=== PATIENT | female | born 1970 | race Caucasian/White ===

== ENCOUNTER 2020-01-23 07:03 | Outpatient (CLI) | payer OTHER, SELFPAY ==
--- NOTE | ~2020-01-23 | MM_ITS ---
EXAMINATION: MM screening andrew BI w krysta HISTORY: Screening mammogram TECHNIQUE: Craniocaudal and mediolateral oblique 3-D tomosynthesis images were obtained and synthetic 2-D images were generated. CAD analysis was submitted and interpreted. COMPARISON: Comparison to multiple prior studies sequentially, with oldest reviewed study dated 06/25. BREAST PARENCHYMAL COMPOSITION: The breasts are heterogeneously dense, which may obscure small masses . FINDINGS: There is no evidence of suspicious mass, calcification, or architectural distortion to sugg est malignancy in either breast. There has been no suspicious interval change. IMPRESSION: 1. No mammographic evidence of malignancy. 2. Recommend routine screening mammography in one year. BI-RADS Category 1: Negative Reviewed, dictated and finalized at location A. [facility]
[2020-01-23 07:45] LABS: Basophils Absolute Auto 0.1 K/mm3 (0.0-0.1); Basophils Percent Auto 0.6 % (0.2-1.2); Eosinophils Absolute Auto 0.4 K/mm3 (0-0.3); Eosinophils Percent Auto 4.8 % (0-4.4); Hemoglobin 13.6 g/dL (12.0-15.0); Immature Granulocyte Absolute 0.03 K/mm3 (0.00-0.031); Immature Granulocyte Percent A 0.4 % (0-0.5); Lymphocytes Absolute Auto 2.24 K/mm3 (0.9-3.2); Lymphocytes Percent Auto 26.2 % (18.3-44.2); Mean Corpuscular HGB Conc 30.9 g/dl (32-36); Mean Corpuscular Hemoglobin 27.1 pg (26-34); Mean Corpuscular Volume 87.8 fl (80-100); Mean Platelet Volume 9.8 fl (7.4-10.4); Monocytes Absolute Auto 0.6 K/mm3 (0.1-0.6); Monocytes Percent Auto 7.1 % (2.6-8.5); Neutrophils Absolute Auto 5.2 K/mm3 (1.3-6.7); Neutrophils Percent Auto 60.9 % (45.5-73.1); Platelet Count Result 297 k/mm3 (150-375); Red Blood Count 5.01 M/mm3 (4.2-5.4); Red Cell Distribution Width 15.6 % (11.5-14.5); White Blood Count 8.6 K/mm3 (4.5-10.0)
[2020-01-23 07:57] LABS: Alanine Aminotransferase 29 U/L (4-35); Albumin Level 4.3 g/dL (3.5-5.1); Alkaline Phosphatase 72 U/L (38-126); Aspartate Amino Transferase 27 U/L (14-36); Bilirubin,Total 0.4 mg/dL (0.2-1.3); Blood Urea Nitrogen 14 mg/dL (7-17); Calcium 9.1 mg/dL (8.4-10.2); Carbon Dioxide 25 mmol/L (22-30); Chloride 102 mmol/L (98-107); Cholesterol 223 mg/dL (0-200); Estimated Glomerular Filt Rate > 60; Glucose 98 mg/dL (65-105); HDL Direct 34 mg/dL; Potassium 4.1 mmol/L (3.4-5.0); Sodium 140 mmol/L (137-145); Triglycerides 168 mg/dL (<150)
[2020-01-23 08:08] LABS: LDL Cholesterol Direct 154 mg/dL
[2020-01-23 09:46] LABS: Vitamin D 25 Hydroxy 34.8 ng/mL
[2020-01-23 11:05] LABS: Free T4 Free Thyroxine Reflex 0.95 ng/dL (0.78-2.19)
[2020-01-23 12:52] LABS: Total Triiodothyronine (T3) 1.44 NG/ML (0.97-1.69)
== END 2020-01-23 07:04 | disposition home or self-care (01) ==
PROVIDERS: PCP Family Medicine; Visit Provider Nurse Practitioner
DX: Z00.00 Encounter for general adult medical examination without abnormal findings (principal); Z12.31 Encounter for screening mammogram for malignant neoplasm of breast; E55.9 Vitamin D deficiency, unspecified
CPT/HCPCS: 36415; 77063; 77067; 80053; 80061; 82306; 84439; 84443; 84480; 85025

== ENCOUNTER 2020-08-09 06:39 | Outpatient (CLI) | payer OTHER, SELFPAY ==
--- NOTE | ~2020-08-09 | XR_ITS ---
XR ankle RT min 3V DATE: 08/09/2020 07:14 INDICATION: Right ankle injury, sprain TECHNIQUE: 4 views COMPARISON: 03/03/2016 right ankle FINDINGS: No fracture or dislocation of the ankle or disruption of the ankle mortise. No periosteal r eaction or bone destruction. IMPRESSION: Negative Reviewed, dictated and finalized at location A. IMPRESSION: Negative
== END 2020-08-09 06:40 | disposition home or self-care (01) ==
LOC: ANHIMG 06:44
PROVIDERS: PCP Family Medicine; Visit Provider Family Medicine
DX: S93.401A Sprain of unspecified ligament of right ankle, initial encounter (principal); M25.571 Pain in right ankle and joints of right foot
CPT/HCPCS: 73610

== ENCOUNTER 2020-08-19 14:33 | Outpatient (CLI) | payer OTHER, SELFPAY ==
[2020-08-19 15:13] LABS: Immunoglobulin G 1584 mg/dL (700-1600)
== END 2020-08-19 14:34 | disposition home or self-care (01) ==
PROVIDERS: PCP Family Medicine; Visit Provider Nurse Practitioner Family
DX: R68.89 Other general symptoms and signs (principal); Z20.828 Contact with and (suspected) exposure to other viral communicable diseases
CPT/HCPCS: 36415; 82784

== ENCOUNTER 2020-08-31 07:42 | Outpatient (CLI) | payer OTHER, SELFPAY ==
[2020-08-31 10:01] LABS: Rubella IgG Antibody 66.3 IU/ML
[2020-09-04 09:38] LABS: Rubeola Measles IgG >300.00 AU/mL (>16.49)
== END 2020-08-31 07:43 | disposition home or self-care (01) ==
LOC: ANHLAB 07:44
PROVIDERS: PCP Family Medicine; Visit Provider Nurse Practitioner Family
DX: Z11.59 Encounter for screening for other viral diseases (principal)
CPT/HCPCS: 36415; 86735; 86762; 86765

== ENCOUNTER 2021-05-09 09:00 | Outpatient (RCR) | payer OTHER, SELFPAY ==
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
== END 2021-05-13 10:30 | disposition home or self-care (01) ==
LOC: ANHPT 09:00
PROVIDERS: PCP Family Medicine; Visit Provider Nurse Practitioner Family
DX: M25.561 Pain in right knee (principal); M62.81 Muscle weakness (generalized)
CPT/HCPCS: 97014; 97110; 97116; 97140; 97162; G0283

== ENCOUNTER 2021-05-23 11:34 | Emergency (ER) | payer OTHER, SELFPAY ==
[2021-05-23 11:48] VITALS: BP 126/86; PULSE 89; RESP 19; TEMP 36.1; O2SAT 97
--- NOTE | 2021-05-23 12:21 | PC.NURSE ---
Pt to restroom using cane w/ assist.
[2021-05-23 12:28] VITALS: BP 122/79; PULSE 82; RESP 18; O2SAT 97
--- NOTE | 2021-05-23 12:34 | ED.HA ---
HPI - Headache General Chief Complaint: Headache Stated Complaint: headache Time Seen by Provider: 05/23/21 12:23 Source: RN notes reviewed History of Present Illness HPI Narrative: Patient presents emergency department from home for a migraine headache. Patient states she has a history of migraine headaches since having a traumatic brain injury states that migraines come and go and this episodes been present for the past 2 days episode feels consistent with previous migraines the patient tried taking aspirin at home as well as has Balderas's milligrams of Tylenol approximately 2 hours ago patient reports nausea with the symptoms she denies any fevers or chills chest pain shortness of breath abdominal pain or any other symptoms patient states she is allergic to NSAIDs Related Data Home Medications Medication Instructions Recorded Confirmed cyclobenzaprine 10 mg tablet 10 mg PO BID PRN tablet 03/18/21 04/10/21 Allergies Allergy/AdvReac Type Severity Reaction Status Date / Time NSAIDS (Non-Steroidal Allergy Severe Siezure Verified 05/23/21 11:53 Anti-Inflamma Cat Dander Allergy Severe chest Uncoded 05/23/21 11:53 congestion Molds and Smuts Allergy Severe chest Uncoded 05/23/21 11:53 congestion Review of Systems Review of Systems: Narrative: Gen.: Denies fevers or chills Eyes: Denies eye pain or visual change reports light sensitivity ENT: Denies congestion Respiratory: Denies shortness of breath or cough CV: Denies chest pain or palpitations GI: Denies abdominal pain emesis or diarrhea reports nausea Musculoskeletal: Denies back pain or muscle pain Neuro: See HPI Skin: Denies rash Except as documented, all other systems reviewed and negative [facility] Past Medical History Medical History Arthritis Back pain, chronic Cerebral palsy Cerumen impaction Depression screening negative Eczema of right hand GERD (gastroesophageal reflux disease) Hyperlipidemia Impaired fasting glucose Patellar tendonitis Post-nasal drainage Renal calculus Right ankle sprain Right knee pain Wears glasses Surgical History Surgical History [place] teeth extracted (~1995) Family History Family History Grandparent Cerebrovascular accident Family history of heart disease in male family member before age 55 Mother Cerebrovascular accident Social History Social History Smoking status: Never smoker Second hand tobacco smoke exposure: No Alcohol intake: current Substance use: never Substance use type: does not use Additional occupation/education comments: Disabled Gender identity (if verbalized by the patient): Female Exam Narrative: Exam Narrative: APPEARANCE: No acute distress, nontoxic, resting in bed EYES: PERRL HEENT: Normocephalic, atraumatic, OMM RESPIRATORY: No respiratory distress Clear to auscultation bilaterally with no rhonchi wheezing or rales. CARDIOVASCULAR: Regular rate and rhythm without murmurs rubs or gallops. ABDOMINAL: Soft, nontender, nondistended, no rebound or guarding MUSCULOSKELETAl: Moves all extremities. No clubbing, cyanosis or edema. NEURO: Awake and alert. Following commands, speech normal, no focal deficits SKIN:: Warm, dry. No rashes lesions or abrasions PSYCHIATRIC: Normal affect/mood, Course Course Emergency Course: Patient states headache is resolved ready for discharge Discussed with patient results of workup and diagnosis. Discussed need for follow-up with primary care, proper use of medication, and reasons to return to the emergency department. Patient understands and agrees to current treatment plan Vital Signs Vital signs: Vital Signs Temperature 97.0 F L 05/23/21 11:48 Pulse Rate 89 05/23/21 11:48 Respiratory Rate 19 05/23/21 11:48 Blood Pressu
[2021-05-23] MEDS: diphenhydrAMINE HCl INJ 50 MG/ML VIAL 25 MG IV PUSH (12:45)
[2021-05-23] MEDS: SODIUM CHLORIDE 0.9% IV 1,000 ML 999 ML IV CONT (12:45)
[2021-05-23] MEDS: ONDANSETRON INJ 4 MG/2 ML VIAL IV PUSH (12:45)
[2021-05-23 12:55] LABS: Add Urine Microscopic? YES; Appearance Urine Cloudy (Clear); Bacteria Urine Trace /hpf; Bilirubin Urine Negative (Negative); Blood Urine 2+ (Negative); Color Urine Straw (Yellow); Glucose Urine UA Negative (Negative); Ketones Urine Negative (Negative); Leukocyte Esterase Ur 2+ LEU/UL (Negative); Mucus Urine Rare /lpf; Nitrate Urine Negative (Negative); Protein Urine Negative (Negative); Specific Grav Ur 1.005 (1.001-1.035); Squamous Epithelial Cell Urine Few /hpf (Few); Urobilinogen Urine Negative mg/dL (<2.0)
[2021-05-23 13:35] VITALS: BP 127/89; PULSE 88; RESP 15; O2SAT 98
== END 2021-05-23 14:02 | disposition home or self-care (01) ==
PROVIDERS: Emergency Provider Emergency Medicine; PCP Family Medicine
DX: G43.009 Migraine without aura, not intractable, without status migrainosus (principal); N39.0 Urinary tract infection, site not specified
CPT/HCPCS: 81001; 81025; 87086; 87088; 96361; 96374; 96375; 99284; J1200; J2405; J7030

== ENCOUNTER 2021-07-02 11:03 | Outpatient (CLI) | payer OTHER, SELFPAY ==
[2021-07-02 11:45] LABS: Basophils Percent Auto 0.4 % (0.2-1.2); Eosinophils Absolute Auto 0.3 K/mm3 (0-0.3); Eosinophils Percent Auto 3.4 % (0-4.4); Hematocrit 39.6 % (37.0-47.0); Hemoglobin 12.6 g/dL (12.0-15.0); Immature Granulocyte Absolute 0.04 K/mm3 (0.00-0.031); Immature Granulocyte Percent A 0.4 % (0-0.5); Lymphocytes Absolute Auto 2.86 K/mm3 (0.9-3.2); Lymphocytes Percent Auto 29.5 % (18.3-44.2); Mean Corpuscular HGB Conc 31.8 g/dl (32-36); Mean Corpuscular Hemoglobin 27.6 pg (26-34); Mean Corpuscular Volume 86.8 fl (80-100); Mean Platelet Volume 10.3 fl (7.4-10.4); Monocytes Absolute Auto 0.7 K/mm3 (0.1-0.6); Monocytes Percent Auto 7.1 % (2.6-8.5); Neutrophils Absolute Auto 5.8 K/mm3 (1.3-6.7); Neutrophils Percent Auto 59.2 % (45.5-73.1); Platelet Count Result 307 k/mm3 (150-375); Red Blood Count 4.56 M/mm3 (4.2-5.4); Red Cell Distribution Width 13.4 % (11.5-14.5); White Blood Count 9.7 K/mm3 (4.5-10.0)
[2021-07-02 12:03] LABS: Alanine Aminotransferase 20 U/L (4-35); Albumin Level 4.1 g/dL (3.5-5.1); Alkaline Phosphatase 72 U/L (38-126); Aspartate Amino Transferase 21 U/L (14-36); Bilirubin,Total 0.4 mg/dL (0.2-1.3); Blood Urea Nitrogen 13 mg/dL (7-17); Calcium 9.4 mg/dL (8.4-10.2); Carbon Dioxide 29 mmol/L (22-30); Cholesterol 234 mg/dL (0-200); Estimated Glomerular Filt Rate > 60; Glucose 93 mg/dL (65-110); HDL Direct 43 mg/dL; Potassium 4.1 mmol/L (3.4-5.0); Sodium 139 mmol/L (137-145); Triglycerides 207 mg/dL (<150)
[2021-07-02 12:08] LABS: LDL Cholesterol Direct 131 mg/dL
[2021-07-02 12:44] LABS: Vitamin D 25 Hydroxy 43.4 ng/mL
[2021-07-02 16:38] LABS: Anion Gap 7 mmol/L (8-16); Chloride 103 mmol/L (98-107)
== END 2021-07-02 11:04 | disposition home or self-care (01) ==
PROVIDERS: PCP Family Medicine; Referring Provider Obstetrics & Gynecology; Visit Provider Family Medicine
DX: E78.5 Hyperlipidemia, unspecified (principal); G43.019 Migraine without aura, intractable, without status migrainosus; G80.9 Cerebral palsy, unspecified; E55.9 Vitamin D deficiency, unspecified
CPT/HCPCS: 36415; 80053; 80061; 82306; 84443; 85025

== ENCOUNTER 2021-10-08 02:18 | Day surgery (SDC) | payer OTHER, SELFPAY ==
--- NOTE | 2021-09-18 14:04 | PC.NURSE ---
Spoke with patient regarding rescheduled procedure. No new info needed in chart. Note that patient is [employer] and has cerebal palsy (high fall risk) Will also need preg test upon arrival. hx of seizures. Patient asked if it was ok to take her cyclobenzaprine med the day of her procedure to help prevent seizures. Told her it was safe to take without food that day. Patient was argumentative about the medication. Forwarded information to EDMUND Figueroa nurse to go over in further detail with patient about medications to take while prepping/morning of her procedure.
[2021-10-07 12:57] VITALS: BMI 26.9
[2021-10-08 08:22] VITALS: BP 125/78; PULSE 94; RESP 18; TEMP 36.1; O2SAT 100
--- NOTE | 2021-10-08 08:26 | WPDANESEPPF ---
Anes - Initial Pre Proc Eval Procedure: Operation Date: 10/08/21 09:15 Proposed Procedures p Esophagogastroduodenoscopy & Screening Colonoscopy - Mckinley Shields MD Date/Time: 10/08/21 08:26 Surgeon: Mckinley Shields MD Pre Op Diagnosis: dysphagia, neoplasm screening Patient Data Age: 50 Gender: F Height: 1.6 m Weight: 67.2 kg Last Vital Signs Temp 36.1 C L 10/08/21 08:22 Pulse 94 10/08/21 08:22 Resp 18 10/08/21 08:22 BP 125/78 10/08/21 08:22 Pulse Ox 100 10/08/21 08:22 Allergies Allergy/AdvReac Type Severity Reaction Status Date / Time NSAIDS (Non-Steroidal Allergy Severe Siezure Verified 10/08/21 08:19 Anti-Inflamma venom-honey bee Allergy Swelling Verified 10/08/21 08:19 venom-wasp Allergy Swelling Verified 10/08/21 08:19 Cat Dander Allergy Severe chest Uncoded 10/08/21 08:19 congestion Molds and Smuts Allergy Severe chest Uncoded 10/08/21 08:19 congestion Home Medications Medication Instructions Recorded Confirmed Type cetirizine 10 mg tablet See Rx Instructions .ROUTE 02/04/21 10/07/21 Rx .COMPLEX #90 tablet cyclobenzaprine 10 mg tablet 10 mg PO BID PRN tablet 03/18/21 10/07/21 History sumatriptan succinate 50 mg tablet See Rx Instructions PO .COMPLEX #7 07/02/21 10/07/21 Rx tablet acetaminophen 500 mg capsule 500 mg PO Q6H PRN 08/19/21 10/07/21 History Patient hx anesthesia problems: none Family hx anesthesia problems: none Results Review: All pre-operative results and documents have been reviewed as part of the pre-operative evaluation. [facility] Past Medical History Medical History Arthritis Bilateral leg cramps Cerebral palsy Cerumen impaction Cervical cancer DVT (deep vein thrombosis) in Environmental allergies GERD (gastroesophageal reflux disease) Hyperlipidemia Migraine headache Patellar tendonitis Renal calculus Seizure Stomach ulcer Wears glasses Surgical History Surgical History H/O LEEP [place] teeth extracted (~1995) Family History Family History Grandparent Cerebrovascular accident Family history of heart disease in male family member before age 55 Mother Cerebrovascular accident Father Alzheimer disease Social History Social History Social History: caffeine use:drinks 1 cup hot tea daily Smoking status: Never smoker Second hand tobacco smoke exposure: No Alcohol intake: current Alcohol use details: occasional Substance use: never Substance use type: does not use Living arrangements: with roommate(s) Additional living arrangements comments: with fiance Additional occupation/education comments: Disabled Gender identity (if verbalized by the patient): Female Spiritual care concerns: No Anes - Eval Final PreProcedure Day of Procedure 10/08/21 08:26 Patient weight: overweight Heart: regular rate and rhythm Lungs: clear to auscultation and normal air movement Airway: Mallampati scale class II Neurological: alert and oriented Last oral intake: >/= 8 hours ASA classification: III Emergent: no Anesthetic plan: proceed Anesthesia type and monitoring: general GIVS Results Review: All pre-operative results and documents have been reviewed as part of the pre-operative evaluation. Informed Consent: The patient's anesthetic plan and its attendant risks and benefits were discussed with the patient/family/POA. Questions were solicited and answers provided to the satisfaction of the patient/family/POA.
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
[2021-10-08] MEDS: LACTATED RINGERS 1,000 ML 150 ML IV CONT (08:41)
--- NOTE | 2021-10-08 09:18 | PM.HPGS ---
History of Present Illness History of Present Illness Consent: Risks, benefits, and alternatives have been discussed and questions answered. Patient agrees to proceed with procedure. Chief complaint: dysphagia, neoplasm screening Narrative: Esther Duarte is a 50 year old female here for first screening colonoscopy, also epigastric discomfort and nausea using tums. Review of Systems Constitutional: Constitutional: Denies headache(s) and Denies weakness Eyes: Eyes: Denies blurry vision ENT: Reports Normal hearing present, Denies headache(s) and Denies neck pain Cardiovascular: Cardiovascular: Denies chest pain and Denies dyspnea Respiratory: Respiratory: Denies dyspnea Gastrointestinal: Gastrointestinal: Reports no additional gastrointestinal complaints Genitourinary: Genitourinary: Denies dysuria Musculoskeletal: Musculoskeletal: Denies neck pain Integumentary/Breasts: Skin/Breast: Denies dry skin Neurologic: Reports Normal hearing present, Denies headache(s) and Denies weakness Psychiatric: Psychiatric: Denies anxiety Endocrine: Endocrine: Denies change in body appearance Hematologic/Lymphatic: Hematologic/Lymphatic: Denies easy bleeding Allergic/Immunologic: Allergic/Immunologic: Denies urticaria PMF Past Medical History Medical History (Updated 10/08/21 @ 09:19 by Mckinley Shields MD) Arthritis Bilateral leg cramps Cerebral palsy Cerumen impaction Cervical cancer DVT (deep vein thrombosis) in Environmental allergies Epigastric pain GERD (gastroesophageal reflux disease) Hyperlipidemia Migraine headache Patellar tendonitis Renal calculus Seizure Stomach ulcer Wears glasses Surgical History Surgical History H/O LEEP [place] teeth extracted (~1995) Family History Family History Grandparent Cerebrovascular accident Family history of heart disease in male family member before age 55 Mother Cerebrovascular accident Father Alzheimer disease Social History Social History Social History: caffeine use:drinks 1 cup hot tea daily Smoking status: Never smoker Second hand tobacco smoke exposure: No Alcohol intake: current Alcohol use details: occasional Substance use: never Substance use type: does not use Living arrangements: with roommate(s) Additional living arrangements comments: with fiance Additional occupation/education comments: Disabled Gender identity (if verbalized by the patient): Female Spiritual care concerns: No Meds Home Medications and Allergies Home Medications Medication Instructions Recorded Confirmed Type cetirizine 10 mg tablet See Rx Instructions .ROUTE 02/04/21 10/07/21 Rx .COMPLEX #90 tablet cyclobenzaprine 10 mg tablet 10 mg PO BID PRN tablet 03/18/21 10/07/21 History sumatriptan succinate 50 mg tablet See Rx Instructions PO .COMPLEX #7 07/02/21 10/07/21 Rx tablet acetaminophen 500 mg capsule 500 mg PO Q6H PRN 08/19/21 10/07/21 History Allergies Allergy/AdvReac Type Severity Reaction Status Date / Time NSAIDS (Non-Steroidal Allergy Severe Siezure Verified 10/08/21 08:19 Anti-Inflamma venom-honey bee Allergy Swelling Verified 10/08/21 08:19 venom-wasp Allergy Swelling Verified 10/08/21 08:19 Cat Dander Allergy Severe chest Uncoded 10/08/21 08:19 congestion Molds and Smuts Allergy Severe chest Uncoded 10/08/21 08:19 congestion Vital Signs Vital Signs - 24 hr 10/08/21 08:22 Temperature 97.0 F L Pulse Rate 94 Respiratory Rate 18 Blood Pressure 125/78 Pulse Oximetry 100 Exam Const: General: comfortable and no acute distress HENMT: General nose exam: Normal nares present Eyes: General: appearance normal, both eyes and all related structures Neck: Neck: no JVD Resp: Auscultati
--- NOTE | 2021-10-08 09:49 | SUR.OPER ---
EGD ended at 930 Colonoscopy started at 936
[2021-10-08 09:52] VITALS: BP 105/56; PULSE 82; RESP 18; O2SAT 100
[2021-10-08 10:02] VITALS: BP 106/65; PULSE 73; RESP 21; O2SAT 100
[2021-10-08 10:12] VITALS: BP 113/70; PULSE 71; RESP 21; O2SAT 100
[2021-10-08 10:22] VITALS: BP 115/75; PULSE 73; RESP 23; O2SAT 100
[2021-10-08 10:32] VITALS: BP 127/76; PULSE 64; RESP 23; O2SAT 100
--- NOTE | 2021-10-08 10:46 | SUR.PHASEII ---
Pt dressed and up to chair still drowsy states she not ready for discharge. Spouse at bedside.
== END 2021-10-08 10:52 | disposition home or self-care (01) ==
PROVIDERS: PCP Family Medicine; Visit Provider Internal Medicine Gastroenterology
PROC: 0DJ08ZZ Inspection of Upper Intestinal Tract, Via Natural or Artificial Opening Endoscopic (ICD-10-PCS; CPT 43235; principal; 2021-10-08 09:15)
DX: Z12.11 Encounter for screening for malignant neoplasm of colon (principal); D12.3 Benign neoplasm of transverse colon; K57.30 Diverticulosis of large intestine without perforation or abscess without bleeding; K64.8 Other hemorrhoids; K21.00 Gastro-esophageal reflux disease with esophagitis, without bleeding; K57.10 Diverticulosis of small intestine without perforation or abscess without bleeding; K29.50 Unspecified chronic gastritis without bleeding; G80.9 Cerebral palsy, unspecified; E78.5 Hyperlipidemia, unspecified
CPT/HCPCS: 45385; 43239; 88305; 88342; J2704; J7120

== ENCOUNTER 2022-04-08 13:22 | Observation (INO) | payer OTHER, SELFPAY ==
[2022-04-08] VITALS (10 sets, daily range): BP systolic 116–130; BP diastolic 66–76; PULSE 70–79; RESP 16–17; TEMP 36.3–36.8; O2SAT 98–100; BMI 27.1
--- NOTE | ~2022-04-08 | XR_ITS ---
EXAMINATION: XR stent kub - surgery DATE: 04/09/2022 16:42 INDICATION: Right ureteral stone. TECHNIQUE: 4 intraoperative fluoroscopic views of the abdomen and pelvis were obtained. I was not pre sent. Fluoroscopy exposure time was 28 seconds. COMPARISON: CT abdomen and pelvis 04/08/2022 FINDINGS: The certified juvenile probation officer images demonstrate a stone in distal right ureter overlying the sacrum. There is a stone in right kidney. The final images demonstrate a right internal ureteral stent in expected pos ition. IMPRESSION: 1. Stone removal from distal right ureter. 2. Right internal ureteral stent in expected position. 3. Stone in right kidney. Reviewed, dictated and finalized at location A.
--- NOTE | ~2022-04-08 | CT_ITS ---
EXAMINATION: CT abdomen pelvis wo con DATE: 04/08/2022 16:13 INDICATION: right flank pain TECHNIQUE: Computed tomography (CT) of the abdomen and pelvis was performed without intravenous contr ast. Automated exposure control and iterative reconstruction technique were employed. The dose-length product was 190.33 mGy-cm. COMPARISON: 06/23/2016. FINDINGS: Lower thorax: Unremarkable Liver: Hiatal hernia. Biliary/Gallbladder: Gallbladder is normal. No bile duct dilation. Spleen: Normal. Pancreas: No mass or duct dilation. Adrenals:No mass. Kidneys: Right renal enlargement, perinephric stranding, and moderate hydronephrosis. Nonobstructing 6 and 11 mm lower pole calculi. 4 x 6 mm calcification in the distal right ureter as the ureter cross es the pelvic vessels. GI tract: No small or large bowel dilation. Normal appendix. Diverticulosis without diverticulitis. Mesentery/Peritoneum: No ascites, mass, or free air. Retroperitoneum: No mass.. Pelvis: Pelvic organs are within normal limits. Soft Tissues: Soft tissues and body wall unremarkable. Bones: No acute osseous finding. IMPRESSION: 4 x 6 mm calcification in the distal right ureter causing moderate obstructive uropathy. Reviewed, dictated and finalized at location K.
[2022-04-08 14:12] LABS: Basophils Percent Auto 0.2 % (0.2-1.2); Hematocrit 41.1 % (37.0-47.0); Hemoglobin 12.8 g/dL (12.0-15.0); Immature Granulocyte Absolute 0.12 K/mm3 (0.00-0.031); Immature Granulocyte Percent A 0.6 % (0-0.5); Lymphocytes Absolute Auto 0.94 K/mm3 (0.9-3.2); Lymphocytes Percent Auto 4.9 % (18.3-44.2); Mean Corpuscular HGB Conc 31.1 g/dl (32-36); Mean Corpuscular Hemoglobin 26.9 pg (26-34); Mean Corpuscular Volume 86.5 fl (80-100); Mean Platelet Volume 9.9 fl (7.4-10.4); Monocytes Absolute Auto 0.9 K/mm3 (0.1-0.6); Monocytes Percent Auto 4.9 % (2.6-8.5); Neutrophils Percent Auto 89.4 % (45.5-73.1); Platelet Count Result 333 k/mm3 (150-375); Red Blood Count 4.75 M/mm3 (4.2-5.4); Red Cell Distribution Width 14.5 % (11.5-14.5)
[2022-04-08 14:24] LABS: Alanine Aminotransferase 21 U/L (6-35); Albumin Level 4.6 g/dL (3.5-5.1); Alkaline Phosphatase 85 U/L (38-126); Anion Gap 8 mmol/L (8-16); Aspartate Amino Transferase 29 U/L (14-36); Bilirubin,Total 0.2 mg/dL (0.2-1.3); Blood Urea Nitrogen 15 mg/dL (7-17); Calcium 9.3 mg/dL (8.4-10.2); Carbon Dioxide 29 mmol/L (22-30); Chloride 102 mmol/L (98-107); Estimated CRCL calculation 64 ml/min; Estimated Glomerular Filt Rate > 60; Glucose 132 mg/dL (65-110); Potassium 3.9 mmol/L (3.4-5.0); Sodium 139 mmol/L (137-145)
[2022-04-08 14:26] LABS: Appearance Urine Slightly Cloudy (Clear); Bilirubin Urine Negative (Negative); Blood Urine 3+ (Negative); Color Urine Yellow (Yellow); Glucose Urine UA Negative (Negative); Ketones Urine 1+ mg/dL (Negative); Leukocyte Esterase Ur 1+ LEU/UL (Negative); Nitrate Urine Negative (Negative); Protein Urine 2+ mg/dL (Negative); Urobilinogen Urine 0.2 mg/dL (<2.0)
[2022-04-08 14:32] LABS: Bacteria Urine 1+ /hpf; Mucus Urine Few /lpf; RBC Urine >75 /hpf (0-2); Squamous Epithelial Cell Urine Many /hpf (Few); WBC Urine 21-30 /hpf
[2022-04-08 14:40] LABS: Add Urine Microscopic? YES
--- NOTE | 2022-04-08 15:15 | ED.ABDPAIN ---
HPI - Abdominal Pain General Chief Complaint: Abdominal Pain Stated Complaint: KIDNEY PAIN Time Seen by Provider: 04/08/22 15:05 Source: patient Mode of arrival: ambulatory History of Present Illness HPI narrative: 51 y/o female presents to the ER today for right flank pain that started this morning. She has history of kidney stones and says that this feels like when she has had one. Her last obstructing stone was in 2016. She has had nausea and vomiting several times today. She has not had any fever or chills. pain wraps around her right abdomen. She denies having any dysuria or hematuria. No change in bowels. Related Data Home Medications Medication Instructions Recorded Confirmed acetaminophen 500 mg capsule 500 mg PO Q6H PRN 08/19/21 10/07/21 Allergies Allergy/AdvReac Type Severity Reaction Status Date / Time NSAIDS (Non-Steroidal Allergy Severe Siezure Verified 10/08/21 08:19 Anti-Inflamma venom-honey bee Allergy Swelling Verified 10/08/21 08:19 venom-wasp Allergy Swelling Verified 10/08/21 08:19 Cat Dander Allergy Severe chest Uncoded 10/08/21 08:19 congestion Molds and Smuts Allergy Severe chest Uncoded 10/08/21 08:19 congestion Review of Systems Constitutional: Constitutional: Denies chills, Denies fatigue and Denies fever(s) Eyes: Eyes: Reports no additional eye complaints ENT: Denies vertigo Cardiovascular: Cardiovascular: Denies chest pain Respiratory: Respiratory: Denies dyspnea Gastrointestinal: Gastrointestinal: Denies abdominal pain, Denies diarrhea, Denies nausea and Denies vomiting Musculoskeletal: Musculoskeletal: Reports back pain and Denies myalgias Integumentary/Breasts: Skin/Breast: Denies erythema and Denies rash Neurologic: Denies dizziness Psychiatric: Psychiatric: Denies anxiety and Denies depression Hematologic/Lymphatic: Hematologic/Lymphatic: Reports no additional hematologic/lymphatic complaints Allergic/Immunologic: Allergic/Immunologic: Reports no additional allergic/immunologic complaints PMF Past Medical History Medical History Arthritis Bilateral leg cramps Cerebral palsy Cerumen impaction Cervical cancer DVT (deep vein thrombosis) in Environmental allergies Epigastric pain GERD (gastroesophageal reflux disease) Hyperlipidemia Migraine headache Patellar tendonitis Renal calculus Seizure Stomach ulcer Wears glasses Surgical History Surgical History H/O LEEP [place] teeth extracted (~1995) Family History Family History Grandparent Cerebrovascular accident Family history of heart disease in male family member before age 55 Mother Cerebrovascular accident Father Alzheimer disease Social History Social History Social History: caffeine use:drinks 1 cup hot tea daily Smoking status: Never smoker Second hand tobacco smoke exposure: No Alcohol intake: current Alcohol use details: occasional Substance use: never Substance use type: does not use Additional living arrangements comments: with fiance Additional occupation/education comments: Disabled Gender identity (if verbalized by the patient): Female Spiritual care concerns: No Exam Const: General: no acute distress Orientation/consciousness: patient oriented x3 HENMT: Head: normal to inspection Eyes: Conjunctivae: conjunctivae normal Neck: Neck: normal visual inspection Chest: Chest palpation & inspection: normal inspection of the chest Resp: Effort & Inspection: normal respiratory effort Auscultation: clear to auscultation bilaterally Cardio: Rate: regular rate Rhythm: regular rhythm GI: GI Palp: Yes Tenderness to palpation present (GI) (right abdomen) Auscultation: normal bowel sounds :
[2022-04-08] MEDS: HYDROmorphone HCL INJ (*CRX) 1 MG/ML SYR 0.5 MG IV PUSH (15:39)
[2022-04-08] MEDS: ONDANSETRON INJ 4 MG/2 ML VIAL IV PUSH (15:39)
[2022-04-08] MEDS: SODIUM CHLORIDE 0.9% IV 1,000 ML 999 ML IV CONT (15:39)
[2022-04-08 15:54] LABS: Lactic Acid Reflex 2.2 mmol/L (0.7-2.0)
[2022-04-08] MEDS: SODIUM CHLORIDE 0.9% IV 1,000 ML 150 ML IV CONT (17:24)
[2022-04-08 18:15] LABS: Lactic Acid Reflex 2.1 mmol/L (0.7-2.0)
[2022-04-08 18:42] LABS: Reflex Lactic Acid Yes or No Add Lactic
[2022-04-08] MEDS: SODIUM CHLORIDE 0.9% IV 1,000 ML 125 ML IV CONT (19:24)
--- NOTE | 2022-04-08 19:24 | PC.NURSE ---
FLUIDS DECREASED FROM 150MLS/HR TO 125ML/HR
[2022-04-08 19:51] LABS: SARS-CoV-2 RNA PCR Negative
[2022-04-08 20:13] LABS: Lactic Acid 0.9 mmol/L (0.7-2.0)
--- NOTE | 2022-04-08 20:20 | ADMGEN ---
This patient, Esther Duarte, was admitted to 2 Medical Room 249-01. Patient/family oriented to hospital policies and general routines including ID bracelet, bed and alarms, visiting hours, pain management, procedures, bathroom and other care routines, personal items, smoking policy, room service/diet, and visiting hours. Information on how to activate the Rapid Response Team has been discussed. Patient/Family are encouraged to report perceived risks to care and to ask questions if they do not understand what they are told or what they should do.
--- NOTE | 2022-04-08 22:03 | PM.IMHP ---
H&P: HPI History of Present Illness Date/Time: Patient was placed observation status for expected length of stay less than 23 hours for management, will plan to re-evaluate tomorrow for improvement. 04/08/22 22:03 Chief Complaint: Right flank and abdominal pain Narrative: Ms. Duarte is a 51-year-old female who presented emergency room with complaints of right flank and abdominal pain that started at 8:00 a.m. this morning. Patient states that she had gone out driving and then began having right flank pain that radiated to her abdomen. Patient states that approximately 9:30 a.m. she began vomiting. Patient states that she thought she may have a kidney stone since she has had them previously and this felt very similar. Patient denies any fever or chills at home. Patient denies any dysuria, hematuria, frequency, or urgency. Patient states she does have a history of cerebral palsy and migraines. Review of Systems Review of Systems: A 12 point review of systems was completed patient all pertinent positive and negative per HPI the remainder are unremarkable. [facility] Past Medical History Medical History Arthritis Bilateral leg cramps Cerebral palsy Cerumen impaction Cervical cancer DVT (deep vein thrombosis) in Environmental allergies Epigastric pain GERD (gastroesophageal reflux disease) Hyperlipidemia Migraine headache Patellar tendonitis Renal calculus Seizure Stomach ulcer Wears glasses Surgical History Surgical History H/O LEEP [place] teeth extracted (~1995) Family History Family History Grandparent Cerebrovascular accident Family history of heart disease in male family member before age 55 Mother Cerebrovascular accident Father Alzheimer disease Social History Social History Social History: caffeine use:drinks 1 cup hot tea daily Smoking status: Never smoker Second hand tobacco smoke exposure: No Alcohol intake: current Drinks per week: 1 Alcohol use details: occasional Substance use: never Substance use type: does not use Additional living arrangements comments: with fiance Additional occupation/education comments: Disabled Gender identity (if verbalized by the patient): Female Spiritual care concerns: No Meds Home Medications and Allergies Home Medications Medication Instructions Recorded Confirmed Type sumatriptan succinate 50 mg tablet See Rx Instructions PO .COMPLEX #7 12/23/21 04/08/22 Rx tablet cetirizine [Allergy Relief 10 mg PO DAILY 04/08/22 04/08/22 History (cetirizine)] cyclobenzaprine 10 mg PO TID PRN 04/08/22 04/08/22 History Allergies Allergy/AdvReac Type Severity Reaction Status Date / Time NSAIDS (Non-Steroidal Allergy Severe Siezure Verified 10/08/21 08:19 Anti-Inflamma venom-honey bee Allergy Swelling Verified 10/08/21 08:19 venom-wasp Allergy Swelling Verified 10/08/21 08:19 Cat Dander Allergy Severe chest Uncoded 10/08/21 08:19 congestion Molds and Smuts Allergy Severe chest Uncoded 10/08/21 08:19 congestion Vital Signs Vital Signs - 24 hr 04/08/22 13:23 04/08/22 14:06 04/08/22 15:00 Temperature 36.4 C 36.6 C 36.8 C Pulse Rate 73 74 70 Respiratory Rate 16 16 16 Blood Pressure 130/75 126/76 120/68 Pulse Oximetry 98 100 98 04/08/22 16:00 04/08/22 17:01 04/08/22 18:00 Temperature 36.8 C 36.4 C Pulse Rate 74 74 74 Respiratory Rate 16 16 16 Blood Pressure 118/68 124/70 116/74 Pulse Oximetry 100 98 100 04/08/22 19:00 04/08/22 20:00 04/08/22 20:29 Temperature 36.3 C L 36.3 C L 36.6 C Pulse Rate 78 70 79 Respiratory Rate 16 16 17 Blood Pressure 120/68 118/72 116/69 Pulse Oximetry 98 100 99 Exam Narrative: Constitutional: Patient is well-nourished
[2022-04-09] VITALS (13 sets, daily range): BP systolic 112–138; BP diastolic 61–83; PULSE 68–86; RESP 12–17; TEMP 36–36.9; O2SAT 95–100
[2022-04-09] MEDS: HYDROmorphone HCL INJ (*CRX) 1 MG/ML SYR 0.5 MG IV PUSH ×2 (02:39→13:55)
[2022-04-09] MEDS: SODIUM CHLORIDE 0.9% IV 1,000 ML 125 ML IV CONT ×2 (04:57→13:10)
[2022-04-09 05:57] LABS: Basophils Percent Auto 0.3 % (0.2-1.2); Eosinophils Absolute Auto 0.1 K/mm3 (0-0.3); Eosinophils Percent Auto 0.9 % (0-4.4); Hematocrit 37.6 % (37.0-47.0); Hemoglobin 11.5 g/dL (12.0-15.0); Immature Granulocyte Absolute 0.05 K/mm3 (0.00-0.031); Immature Granulocyte Percent A 0.3 % (0-0.5); Lymphocytes Absolute Auto 2.04 K/mm3 (0.9-3.2); Lymphocytes Percent Auto 13.9 % (18.3-44.2); Mean Corpuscular HGB Conc 30.6 g/dl (32-36); Mean Corpuscular Hemoglobin 27.3 pg (26-34); Mean Corpuscular Volume 89.1 fl (80-100); Mean Platelet Volume 10.4 fl (7.4-10.4); Monocytes Absolute Auto 1.1 K/mm3 (0.1-0.6); Monocytes Percent Auto 7.8 % (2.6-8.5); Neutrophils Absolute Auto 11.3 K/mm3 (1.3-6.7); Neutrophils Percent Auto 76.8 % (45.5-73.1); Platelet Count Result 286 k/mm3 (150-375); Red Blood Count 4.22 M/mm3 (4.2-5.4); Red Cell Distribution Width 14.7 % (11.5-14.5); White Blood Count 14.7 K/mm3 (4.5-10.0)
[2022-04-09 06:07] LABS: Anion Gap 4 mmol/L (8-16); Blood Urea Nitrogen 9 mg/dL (7-17); Carbon Dioxide 26 mmol/L (22-30); Chloride 105 mmol/L (98-107); Estimated CRCL calculation 90 ml/min; Estimated Glomerular Filt Rate > 60; Glucose 94 mg/dL (65-110); Potassium 3.6 mmol/L (3.4-5.0); Sodium 135 mmol/L (137-145)
--- NOTE | 2022-04-09 07:03 | WPDURCON ---
Assessment and Plan Assessment and plan (1) Right ureteral stone: Code(s): N20.1 - Calculus of ureter Status: Acute (2) Right kidney stone: Code(s): N20.0 - Calculus of kidney Status: Acute Assessment and Plan: Cystoscopy, right ureteroscopy with laser lithotripsy, stone extraction right ureteral stent placement. She will need right ESWL in the future for her larger right renal stone. Urology Consult Note HPI Date Seen: 04/09/22 Requesting Physician: Rekha Brower PA-C Primary Care Provider: Ayaz Jimenez MD Consult Narrative Narrative: Esther Duarte is a 51 year old female, who reports having had 6 prior kidney stones, presents to the emergency department last night with acute onset nausea vomiting followed by right flank pain demonstrates an obstructing right mid ureteral stone in addition to a larger nonobstructing right kidney stone hydration and analgesics. Review of Systems Cardiovascular: Cardiovascular: Denies chest pain, Denies lightheadedness, Denies palpitations and Denies dyspnea Respiratory: Respiratory: Denies dyspnea Gastrointestinal: Gastrointestinal: Denies diarrhea, Denies nausea and Denies vomiting Genitourinary: Genitourinary: Denies hematuria and Denies dysuria Endocrine: Endocrine: Denies palpitations PMFSH Past Medical History Medical History Arthritis Bilateral leg cramps Cerebral palsy Cerumen impaction Cervical cancer DVT (deep vein thrombosis) in Environmental allergies Epigastric pain GERD (gastroesophageal reflux disease) Hyperlipidemia Migraine headache Patellar tendonitis Renal calculus Seizure Stomach ulcer Wears glasses Surgical History Surgical History H/O LEEP [place] teeth extracted (~1995) Family History Family History Grandparent Cerebrovascular accident Family history of heart disease in male family member before age 55 Mother Cerebrovascular accident Father Alzheimer disease Social History Social History Social History: caffeine use:drinks 1 cup hot tea daily Smoking status: Never smoker Second hand tobacco smoke exposure: No Alcohol intake: current Drinks per week: 1 Alcohol use details: occasional Substance use: never Substance use type: does not use Additional living arrangements comments: with fiance Additional occupation/education comments: Disabled Gender identity (if verbalized by the patient): Female Spiritual care concerns: No Meds Home Medications and Allergies Home Medications Medication Instructions Recorded Confirmed Type sumatriptan succinate 50 mg tablet See Rx Instructions PO .COMPLEX #7 12/23/21 04/08/22 Rx tablet cetirizine [Allergy Relief 10 mg PO DAILY 04/08/22 04/08/22 History (cetirizine)] cyclobenzaprine 10 mg PO TID PRN 04/08/22 04/08/22 History Allergies Allergy/AdvReac Type Severity Reaction Status Date / Time NSAIDS (Non-Steroidal Allergy Severe Siezure Verified 10/08/21 08:19 Anti-Inflamma venom-honey bee Allergy Swelling Verified 10/08/21 08:19 venom-wasp Allergy Swelling Verified 10/08/21 08:19 Cat Dander Allergy Severe chest Uncoded 10/08/21 08:19 congestion Molds and Smuts Allergy Severe chest Uncoded 10/08/21 08:19 congestion Vital Signs Vital Signs - 24 hr 04/08/22 13:23 04/08/22 14:06 04/08/22 15:00 Temperature 97.6 F 97.9 F 98.3 F Pulse Rate 73 74 70 Respiratory Rate 16 16 16 Blood Pressure 130/75 126/76 120/68 Pulse Oximetry 98 100 98 04/08/22 16:00 04/08/22 17:01 04/08/22 18:00 Temperature 98.3 F 97.6 F Pulse Rate 74 74 74 Respiratory Rate 16 16 16 Blood Pressure 118/68 124/70 116/74 Pulse Oximetry 100 98 100 04/08/22 19:00 04/08/22
--- NOTE | 2022-04-09 07:14 | WPDHPUPDATE1 ---
History and Physical Update Update Date/Time: 04/09/22 07:14 History and Physical has been reviewed, including an updated exam of the patient. There are NO changes in the patient's condition. Risks, benefits, and alternatives have been discussed and questions answered. Patient agrees to proceed with procedure.
--- NOTE | 2022-04-09 07:18 | PM.IMPN ---
Progress Note: A&P Assessment and Plan (1) Obstruction of right ureter: Code(s): N13.5 - Crossing vessel and stricture of ureter without hydronephrosis Status: Acute Assessment and Plan: Patient presented with acute onset right flank pain with nausea vomiting. CT abd pelvis showed right distal obstructive stone with right renal enlargement, perinephric stranding, and moderate hydronephrosis. Urology has been consulted and be taking patient to cystoscopy with laser lithotripsy, stone extraction right ureteral stent placement. Patient will need later ESWL for nonobstructing 6x11 mm lower pole right renal calculi. Will follow-up tomorrow after procedure this evening to assess how patient is doing clinically. (2) Urinary tract infection: Code(s): N39.0 - Urinary tract infection, site not specified Status: Acute Assessment and Plan: WBC 14.7 (19.0). BUN creatinine normal. VSS. Initially elevated lactic acid, normal today. UA showed leuk esterase, >75 RBCs, 21-30 wbc's, blood, protein, ketones, 1+ bacteria, many squamous epithelial cells. Blood culture shows no growth to day. Patient received Rocephin in the emergency room will continue with this medication daily. Urine culture pending, will adjust antibiotics appropriately. Patient to stay the night. Will adjust antibiotics to oral for discharge once cultures return. (3) Right ureteral stone: Code(s): N20.1 - Calculus of ureter Status: Acute Subjective Date/time seen: 04/09/22 07:18 51-year-old female with past medical history of cerebral palsy, migraines, kidney stones, presents to us with right flank pain and vomiting. Interval history: 51-year-old female with past medical history of cerebral palsy, migraines, kidney stones, presents to us with right flank pain and vomiting. Patient reports her pain is well controlled on medications here, though she does have some slight discomfort on the right side. She denies chest pain, shortness a breath, other urinary changes. Review of Systems Review of Systems: All systems reviewed & are unremarkable except as noted in HPI and below Exam Narrative: GENERAL APPEARANCE: Alert and oriented x 3, in no apparent distress. HEENT: PERRL, EOMI. Sclerae anicteric. Moist mucous membranes. NECK: Supple. No JVD or obvious carotid bruits. RESPIRATORY: Respirations are nonlabored. Breath sounds are equal and clear bilaterally. No wheezes, Rhonchi, or rales. CARDIOVASCULAR: Regular rate and rhythm with normal S1-S2. No murmurs, gallops, or rubs. GASTROINTESTINAL: Soft, flat, and benign. No mass, with mild right lower quadrant tenderness. No organomegaly or hernia. Bowel sounds are present. SKIN: Warm, dry, well perfused. Good turgor. No lesions, nodules, or rashes noted. Warm and dry. No rash or lesions on limited exam. EXTREMITIES: No cyanosis, clubbing, or edema. Radial and pedal pulses intact. NEUROLOGICAL: Alert. Cranial nerves 2-12 are grossly intact. No gross focal deficits to casual conversation. PSYCHIATRIC: Pleasant and cooperative with normal mood and affect. Objective Data Vital Signs Vital Signs: Vital Signs - 24 hr 04/08/22 13:23 04/08/22 14:06 04/08/22 15:00 Temperature 97.6 F 97.9 F 98.3 F Pulse Rate 73 74 70 Respiratory Rate 16 16 16 Blood Pressure 130/75 126/76 120/68 Pulse Oximetry 98 100 98 04/08/22 16:00 04/08/22 17:01 04/08/22 18:00 Temperature 98.3 F 97.6 F Pulse Rate 74 74 74 Respiratory Rate 16 16 16 Blood Pressure 118/68 124/70 116/74 Pulse Oximetry 100 98 100 04/08/22 19:00 04/08/22 20:00 04/08/22 20:29 Temperature 97.4 F L 97.3 F L 97.8 F Pulse Rate 78 70 79 Respiratory Rate 16 16 17 Blood Pressure 120/68 118/72 116/69 Pulse Oximetry 98 100 99 04/08/22 23:36 04/09/22 03:57 Temperature 97.9 F 96.8 F L Pulse Rate 73 83 Respiratory Rate 17 15 Blood Pressure 126/66 118/67 Pulse Oximetry 98 95 Intake
[2022-04-09] MEDS: LORATADINE 10 MG TABLET PO (09:10)
[2022-04-09] MEDS: LACTATED RINGERS 1,000 ML 30 ML IV CONT (13:55)
--- NOTE | 2022-04-09 14:02 | PCCCNOTE ---
On 04/09/22, the student, [Nneka Núñez ], provided care and completed [facility] documentation on this patient. I have reviewed the student's documentation and agree with the findings.
--- NOTE | 2022-04-09 14:12 | WPDANESEPPF ---
Anes - Initial Pre Proc Eval Procedure: Operation Date: 04/09/22 15:30 Proposed Procedures p Cystoscopy, Right Ureteroscopy, Right Stone Extraction, Possible Right Retrograde Pyelogram, Possible Right Stent Placement, Possible Holmium Laser Lithotripsy - Prosper Bailey MD Date/Time: 04/09/22 14:12 Surgeon: Rekha Brower PA-C Pre Op Diagnosis: right ureteral obstruction with UTI Patient Data Age: 51 Gender: F Height: 1.6 m Weight: 69.4 kg Last Vital Signs Temp 36.9 C 04/09/22 12:07 Pulse 74 04/09/22 12:07 Resp 12 04/09/22 12:07 BP 121/69 04/09/22 12:07 Pulse Ox 100 04/09/22 12:07 Allergies Allergy/AdvReac Type Severity Reaction Status Date / Time NSAIDS (Non-Steroidal Allergy Severe Siezure Verified 10/08/21 08:19 Anti-Inflamma venom-honey bee Allergy Swelling Verified 10/08/21 08:19 venom-wasp Allergy Swelling Verified 10/08/21 08:19 Cat Dander Allergy Severe chest Uncoded 10/08/21 08:19 congestion Molds and Smuts Allergy Severe chest Uncoded 10/08/21 08:19 congestion Home Medications Medication Instructions Recorded Confirmed Type sumatriptan succinate 50 mg tablet See Rx Instructions PO .COMPLEX #7 12/23/21 04/08/22 Rx tablet cetirizine [Allergy Relief 10 mg PO DAILY 04/08/22 04/08/22 History (cetirizine)] cyclobenzaprine 10 mg PO TID PRN 04/08/22 04/08/22 History Laboratory Tests 04/08/22 04/08/22 04/08/22 14:05 14:05 14:05 WBC 19.0 K/mm3 H K/mm3 (4.5-10.0) RBC 4.75 M/mm3 M/mm3 (4.2-5.4) Hgb 12.8 g/dL g/dL (12.0-15.0) Hct 41.1 % % (37.0-47.0) MCV 86.5 fl fl (80-100) MCH 26.9 pg pg (26-34) MCHC 31.1 g/dl L g/dl (32-36) RDW 14.5 % % (11.5-14.5) Plt Count 333 k/mm3 k/mm3 (150-375) MPV 9.9 fl fl (7.4-10.4) Immature Gran % (Auto) 0.6 % H % (0-0.5) Neut % (Auto) 89.4 % H % (45.5-73.1) Lymph % (Auto) 4.9 % L % (18.3-44.2) [place] % (Auto) 4.9 % % (2.6-8.5) Eos % (Auto) 0.0 % % (0-4.4) Baso % (Auto) 0.2 % % (0.2-1.2) Lymph # (Auto) 0.94 K/mm3 K/mm3 (0.9-3.2) [place] # (Auto) 0.9 K/mm3 H K/mm3 (0.1-0.6) Eos # (Auto) 0.0 K/mm3 K/mm3 (0-0.3) Baso # (Auto) 0.0 K/mm3 K/mm3 (0.0-0.1) Abs Immat Gran (auto) 0.12 K/mm3 H K/mm3 (0.00-0.031) Absolute Neuts (auto) 17.0 K/mm3 H K/mm3 (1.3-6.7) Absolute Nucleated RBC 0.0 K/mm3 K/mm3 (0.0-0.012) Nucleated RBC % 0.0 % % (0.0-0.2) Sodium 139 mmol/L mmol/L (137-145) Potassium 3.9 mmol/L mmol/L (3.4-5.0) Chloride 102 mmol/L mmol/L (98-107) Carbon Dioxide 29 mmol/L mmol/L (22-30) Anion Gap 8 mmol/L mmol/L (8-16) BUN 15 mg/dL mg/dL (7-17) Creatinine 0.80 mg/dL mg/dL (0.7-1.0) Estim Creat Clear Calc 64 ml/min ml/min Estimated GFR > 60 (59 - ) Glucose 132 mg/dL H mg/dL (65-110) Lactic Acid Calcium 9.3 mg/dL mg/dL (8.4-10.2) Total Bilirubin 0.2 mg/dL mg/dL (0.2-1.3) AST 29 U/L U/L (14-36) ALT 21 U/L U/L (6-35) Alkaline Phosphatase 85 U/L U/L (38-126) Total Protein 9.0 g/dL H g/dL (6.3-8.2) Albumin 4.6 g/dL g/dL (3.5-5.1) Urine Color Yellow (Yellow) Urine Appearance Slightly cloudy (Clear) Urine pH 8.0 (5.0-9.0) Ur Specific [place] 1.020 (1.001-1.035) Urine Protein 2+ mg/dL H mg/dL (Negative) Urine Glucose (UA) Negative mg/dL mg/dL (Negative) Urine Ketones 1+ mg/dL H mg/dL (Negative) Ur Blood (Man) 3+ H (Negative) Urine Nitrate Negative (Negative) Urine Bilirubin Negative (Negative) Urine Urobilinogen 0.2 mg/dL mg/
[2022-04-09] MEDS: LIDOCAINE HCL 2% GEL UROJET 10 ML PKG MUCOUS MEM (16:18)
--- NOTE | 2022-04-09 16:26 | W.PM.PROC2 ---
Procedure Note - Detailed Date of Procedure 04/09/22 Pre-op Diagnosis Right ureteral stone Post-op Diagnosis Same Procedure Performed Cystoscopy, right ureteroscopy with laser lithotripsy, stone extraction and right stent placement Surgeon Prosper Bailey MD Anesthesia General Description of Procedure The patient was brought to the operative suite where she is prepped and draped in a routine sterile fashion while in the dorsal lithotomy position after the uneventful induction of a general LMA anesthetic. A 19F rigid cystoscope was placed in the bladder. The patient had no evidence of urethral stricture or bladder neck contracture. The bladder mucosa was endoscopically normal without hyperemia or neoplasm. There was a single, orthotopic ureteral orifice bilaterally. A 0.035 glidewire was advanced into the right renal pelvis under fluoroscopy. The distal ureter was dilated with an 8F/10F ureteral dilator. Ureteroscopy was undertaken with a short tapered semi-rigid ureteroscope. identified a 67 mm right mid ureteral calculus with moderate monica ureteral edema and erythema at that site. With ureteroscopy I fractured the stone into smaller pieces using a 273micron Holmium laser fiber with the Holmium laser. I was able to then extract the stone pieces using a 1.9F Escape, Nitinol, disposable stone basket. Due to the extent of this manipulation I did place a 4.8F double-J ureteral stent. The proximal coil of the stent was confirmed to be in the renal pelvis and the distal coil in the bladder. The patient's bladder was emptied and he was taken to the recovery room having tolerated this procedure well. Urine Output 600 Drains Yes Packing No Pathology Yes Complications No immediate complications Condition Stable Disposition PACU
[2022-04-09] MEDS: HYDROcodone/acetaminophen (*CRX) 5-325 MG TABLET 1 TAB PO (23:31)
[2022-04-10 04:00] VITALS: BP 123/72; PULSE 79; RESP 17; TEMP 36; O2SAT 99
--- NOTE | 2022-04-10 06:54 | WPDUROPN2 ---
Progress Note: A&P Assessment and Plan (1) Right ureteral stone: Code(s): N20.1 - Calculus of ureter Status: Acute Assessment and Plan: Patient comfortable following right ureteral stent removal. She is tolerating her stent well. Comfortable with discharge today with follow-up in a week to 10 days to arrange right ureteral stent removal and ESWL to the large stone in her right kidney. Subjective Subjective Date/Time Seen: 04/10/22 06:54 Comfortable following stent removal Review of Systems Cardiovascular: Cardiovascular: Denies chest pain, Denies lightheadedness, Denies palpitations and Denies dyspnea Respiratory: Respiratory: Denies dyspnea Gastrointestinal: Gastrointestinal: Denies diarrhea, Denies nausea and Denies vomiting Genitourinary: Genitourinary: Denies hematuria and Denies dysuria Endocrine: Endocrine: Denies palpitations Exam Const: General: no acute distress Resp: Effort & Inspection: normal respiratory effort GI: Inspection: non-distended GI Palp: No abdominal tenderness and No Guarding due to palpation present (GI) Auscultation: normal bowel sounds Objective Data Vital Signs Vital Signs: Vital Signs - 24 hr 04/09/22 08:14 04/09/22 12:07 04/09/22 14:25 Temperature 98.5 F 98.4 F 97.8 F Pulse Rate 70 74 81 Respiratory Rate 16 12 16 Blood Pressure 113/69 121/69 135/78 Pulse Oximetry 100 100 100 04/09/22 15:38 04/09/22 16:28 04/09/22 16:40 Temperature 97.5 F L Pulse Rate 70 68 Respiratory Rate 14 13 Blood Pressure 112/69 122/78 Pulse Oximetry 98 100 100 04/09/22 16:55 04/09/22 17:09 04/09/22 17:42 Temperature 97.8 F Pulse Rate 71 71 84 Respiratory Rate 14 14 12 Blood Pressure 132/81 126/79 135/77 Pulse Oximetry 100 98 96 04/09/22 19:37 04/09/22 21:28 04/09/22 23:49 Temperature 96.8 F L 97.5 F L Pulse Rate 86 82 Respiratory Rate 17 17 Blood Pressure 138/83 127/61 Pulse Oximetry 99 96 97 04/10/22 04:00 Temperature 96.8 F L Pulse Rate 79 Respiratory Rate 17 Blood Pressure 123/72 Pulse Oximetry 99 Intake/Output Intake/Output: Intake & Output 04/07/22 04/08/22 04/09/22 04/10/22 23:59 23:59 23:59 23:59 Intake Total 1700 2150 200 Output Total 600 3500 100 Balance 1100 -1350 100 Meds/Results Medications: Active Medications Generic Name Dose Route Start Last Admin Trade Name Freq PRN Reason Stop Dose Admin Hydrocodone Bitart/Acetaminophen 1 tab 04/09/22 23:07 04/09/22 23:31 Hydrocodone/Acetaminophen (*Crx) 5-325 Mg Tablet PO 1 tab Q4H PRN Administration Pain Rated 4-6 Cyclobenzaprine HCl 10 mg 04/08/22 21:51 Cyclobenzaprine Hcl 10 Mg Tablet PO TID PRN Muscle Pain Ceftriaxone Sodium/Dextrose 1 gm in 50 mls @ 100 mls/hr 04/09/22 09:00 04/09/22 09:40 Rocephin 1 Gm/D5w 50 Ml IVPB Infused Q24H DAWSON Infusion Loratadine 10 mg 04/09/22 09:00 04/09/22 09:10 Loratadine 10 Mg Tablet PO 10 mg QAM DAWSON Administration Ondansetron HCl 4 mg 04/08/22 18:02 Ondansetron Inj 4 Mg/2 Ml Vial IV PUSH Q4H PRN Nausea Sumatriptan Succinate 50 mg 04/08/22 21:55 Sumatriptan Succinate 25 Mg Tablet PO Q2H PRN Migraine Headache Radiology Results: ITS Impressions Abdomen/Pelvis CT 04/08/22 16:13 IMPRESSION: 4 x 6 mm calcification in the distal right ureter causing moderate obstructive uropathy. Ureter Stent X-Ray 04/09/22 19:21 IMPRESSION: 1. Stone removal from distal right ureter. 2. Right internal ureteral stent in expected position. 3. Stone in right kidney. Quality VTE Prophylaxis VTE prophylaxis: mechanical ordered
[2022-04-10] MEDS: LORATADINE 10 MG TABLET PO (08:01)
[2022-04-10 08:04] LABS: Hematocrit 36.8 % (37.0-47.0); Hemoglobin 11.5 g/dL (12.0-15.0); Mean Corpuscular HGB Conc 31.3 g/dl (32-36); Mean Corpuscular Hemoglobin 27.3 pg (26-34); Mean Corpuscular Volume 87.4 fl (80-100); Mean Platelet Volume 10.1 fl (7.4-10.4); Platelet Count Result 307 k/mm3 (150-375); Red Blood Count 4.21 M/mm3 (4.2-5.4); Red Cell Distribution Width 14.5 % (11.5-14.5); White Blood Count 15.7 K/mm3 (4.5-10.0)
[2022-04-10 08:19] LABS: Alanine Aminotransferase 14 U/L (6-35); Albumin Level 3.7 g/dL (3.5-5.1); Alkaline Phosphatase 68 U/L (38-126); Anion Gap 8 mmol/L (8-16); Aspartate Amino Transferase 19 U/L (14-36); Bilirubin,Total 0.3 mg/dL (0.2-1.3); Blood Urea Nitrogen 10 mg/dL (7-17); Calcium 8.9 mg/dL (8.4-10.2); Carbon Dioxide 26 mmol/L (22-30); Chloride 105 mmol/L (98-107); Estimated CRCL calculation 78 ml/min; Estimated Glomerular Filt Rate > 60; Glucose 101 mg/dL (65-110); Potassium 4.6 mmol/L (3.4-5.0); Sodium 139 mmol/L (137-145)
[2022-04-10 08:48] VITALS: O2SAT 96
[2022-04-10 08:54] LABS: Appearance Urine Cloudy (Clear); Bilirubin Urine Negative (Negative); Blood Urine 3+ (Negative); Color Urine Yellow (Yellow); Glucose Urine UA Negative (Negative); Ketones Urine 1+ mg/dL (Negative); Leukocyte Esterase Ur 1+ LEU/UL (Negative); Nitrate Urine Negative (Negative); Protein Urine 2+ mg/dL (Negative); Specific Grav Ur 1.015 (1.001-1.035); Urobilinogen Urine 0.2 mg/dL (<2.0)
[2022-04-10 09:03] LABS: Add Urine Microscopic? YES
[2022-04-10 09:08] LABS: Mucus Urine Rare /lpf; RBC Urine >75 /hpf (0-2); Squamous Epithelial Cell Urine Occasional /hpf (Few); WBC Urine 21-30 /hpf
--- NOTE | 2022-04-10 09:24 | WPDANESPN ---
Anes - Prog Note Post-Op Date/Time: 04/10/22 09:24 Cardiovascular status: normal Respiratory status: normal Airway patency: baseline Mental status: baseline Post-Op hydration status: normal Vital Signs: Last Vital Signs Temp 36.0 C L 04/10/22 04:00 Pulse 79 04/10/22 04:00 Resp 17 04/10/22 04:00 BP 123/72 04/10/22 04:00 Pulse Ox 96 04/10/22 08:48 Pain Score (VAS): 0 I/O: Intake & Output 04/09/22 04/10/22 04/10/22 23:59 07:59 15:59 Intake Total 100 200 50 Output Total 1200 100 Balance -1100 100 50 Laboratory Tests 04/10/22 07:45 04/10/22 07:45 04/10/22 04/10/22 04/10/22 07:45 07:45 08:14 WBC 15.7 H RBC 4.21 Hgb 11.5 L Hct 36.8 L MCV 87.4 MCH 27.3 MCHC 31.3 L RDW 14.5 Plt Count 307 MPV 10.1 Sodium 139 Potassium 4.6 Chloride 105 Carbon Dioxide 26 Anion Gap 8 BUN 10 Creatinine 0.70 Estim Creat Clear Calc 78 Estimated GFR > 60 Glucose 101 Calcium 8.9 Total Bilirubin 0.3 AST 19 ALT 14 Alkaline Phosphatase 68 Total Protein 7.0 Albumin 3.7 Urine Color Yellow Urine Appearance Cloudy H Urine pH 6.0 Ur Specific [place] 1.015 Urine Protein 2+ H Urine Glucose (UA) Negative Urine Ketones 1+ H Ur Blood (Man) 3+ H Urine Nitrate Negative Urine Bilirubin Negative Urine Urobilinogen 0.2 Leukocyte Esterase Rfl 1+ H Urine RBC >75 H Urine WBC 21-30 H Ur Squamous Epith Cells Occasional Urine Mucus Rare Microbiology 04/08/22 14:05 Urine-Clean Catch Urine Culture - Final 04/08/22 15:38 Blood Blood Culture - Preliminary 04/08/22 15:38 Blood Blood Culture - Preliminary Post-procedural complaints: none Patient Feedback: Patient satisfied with anesthetic care.
--- NOTE | 2022-04-10 09:27 | PM.DS ---
DS: Admitting Diagnosis Discharge Date 04/10/2022 1000 Admitting Diagnosis Right flank pain DS: Discharge Diagnosis Discharge Diagnosis (1) Obstruction of right ureter: Code(s): N13.5 - Crossing vessel and stricture of ureter without hydronephrosis Status: Acute Assessment and Plan: Patient presented with acute onset right flank pain with nausea vomiting. CT abd pelvis showed right distal obstructive stone with right renal enlargement, perinephric stranding, and moderate hydronephrosis. Urology has been consulted and be taking patient to cystoscopy with laser lithotripsy, stone extraction, right ureteral stent placement. Urology advised patient patient okay to discharge and follow-up in 7-10 days for stent removal and ESWL for nonobstructing 6x11 mm lower pole right renal calculi. Will discharge patient with prophylactic antibiotic coverage given contaminated urine culture. Will follow up with repeat culture from this morning. (2) Urinary tract infection: Code(s): N39.0 - Urinary tract infection, site not specified Status: Acute Assessment and Plan: WBC 15.7 (14.7) (19.0). Likely procedural caused elevation. BUN creatinine normal. VSS. Initially elevated lactic acid, normal today. UA showed leuk esterase, >75 RBCs, 21-30 wbc's, blood, protein, ketones, 1+ bacteria, many squamous epithelial cells. Blood culture shows no growth to day. Initial culture showed mixed genital caro, cultures repeated. Patient received Rocephin during her stay, urology to discharge with PO antibiotic coverage and pain medication. DS: Summary Hospital Course Reason for hospitalization: Obstructing kidney stone. Hospital Course: See above for full hospital course Status at Discharge Overall status at discharge: patient is progressing back to baseline Time Spent with Patient Time attestation: Total time spent providing and/or coordinating discharge services: 35 minutes Time spent: Greater than 30 minutes Exam Narrative: GENERAL APPEARANCE: Alert and oriented x 3, in no apparent distress. HEENT: PERRL, EOMI. Sclerae anicteric. Moist mucous membranes. NECK: Supple. No JVD or obvious carotid bruits. RESPIRATORY: Respirations are nonlabored. Breath sounds are equal and clear bilaterally. No wheezes, Rhonchi, or rales. CARDIOVASCULAR: Regular rate and rhythm with normal S1-S2. No murmurs, gallops, or rubs. GASTROINTESTINAL: Soft, flat, and benign. No mass, with mild right lower quadrant tenderness. No organomegaly or hernia. Bowel sounds are present. SKIN: Warm, dry, well perfused. Good turgor. No lesions, nodules, or rashes noted. Warm and dry. No rash or lesions on limited exam. EXTREMITIES: No cyanosis, clubbing, or edema. Radial and pedal pulses intact. NEUROLOGICAL: Alert. Cranial nerves 2-12 are grossly intact. No gross focal deficits to casual conversation. PSYCHIATRIC: Pleasant and cooperative with normal mood and affect. DS: Data Data Completed and Pending Pending studies at discharge: Pending at discharge 04/09/22 16:21 Surgical [PTH] Routine Labs on day of discharge: Labs from last 24 hours 04/10/22 04/10/22 04/10/22 08:14 07:45 07:45 WBC 15.7 H RBC 4.21 Hgb 11.5 L Hct 36.8 L MCV 87.4 MCH 27.3 MCHC 31.3 L RDW 14.5 Plt Count 307 MPV 10.1 Sodium 139 Potassium 4.6 Chloride 105 Carbon Dioxide 26 Anion Gap 8 BUN 10 Creatinine 0.70 Estim Creat Clear Calc 78 Estimated GFR > 60 Glucose 101 Calcium 8.9 Total Bilirubin 0.3 AST 19 ALT 14 Alkaline Phosphatase 68 Total Protein 7.0 Albumin 3.7 Urine Color Yellow Urine Appearance Cloudy H Urine pH 6.0 Ur Specific [place] 1.015 Urine Protein 2+ H Urine Glucose (UA) Negative Urine Ketones 1+ H Ur Blood (Man) 3+ H Urine Nitrate Negative Urine Bilirubin Negative Urine Urobilinogen 0.2
--- NOTE | 2022-04-13 06:37 | PC.NURSE ---
Urine cx is negative.
== END 2022-04-10 10:21 | disposition home or self-care (01) ==
LOC: ANHED 18:13 → ANH2MED 19:20
PROVIDERS: Emergency Medicine; Nurse Practitioner Adult Health; Urology; Admitting Provider Family Medicine; Emergency Provider Nurse Practitioner Family; PCP Family Medicine; Visit Provider Student in an Organized Health Care Education/Training Program
PROC: (CPT 52352; principal; 2022-04-09 15:30)
DX: N20.1 Calculus of ureter (principal); K21.9 Gastro-esophageal reflux disease without esophagitis; E78.5 Hyperlipidemia, unspecified; Z85.41 Personal history of malignant neoplasm of cervix uteri; N13.5 Crossing vessel and stricture of ureter without hydronephrosis; Z20.822 Contact with and (suspected) exposure to COVID-19
CPT/HCPCS: 52356; 36415; 74176; 80048; 80053; 81001; 81025; 82365; 83605; 85025; 85027; 87040; 87086; 87088; 88300; 96361; 96365; 96375; 96376; 99285; A9270; C1769; C2617; C9803; G0378; G0379; J0696; J1100; J1170; J2405; J2704; J3010; J7030; J7120; U0003; U0005

== ENCOUNTER 2022-04-24 12:10 | Outpatient (CLI) | payer OTHER, SELFPAY ==
--- NOTE | ~2022-04-24 | MM_ITS ---
EXAMINATION: MM screening andrew BI w krysta HISTORY: Screening mammogram TECHNIQUE: Craniocaudal and mediolateral oblique 3-D tomosynthesis images were obtained and synthetic 2-D images were generated. Bilateral rotated lateral CC views. CAD analysis was submitted and interp reted. COMPARISON: 01/23/2020, 10/11/2017, 10/08/2016 bilateral screening mammogram examinations BREAST PARENCHYMAL COMPOSITION: FINDINGS: There is no evidence of suspicious mass, calcification, or architectural distortion to sugg est malignancy in either breast. There has been no suspicious interval change. IMPRESSION: 1. No mammographic evidence of malignancy. 2. Recommend routine screening mammography in one year. BI-RADS Category 1: Negative Reviewed, dictated and finalized at location A.
== END 2022-04-24 12:11 | disposition home or self-care (01) ==
PROVIDERS: PCP Family Medicine; Visit Provider Advanced Practice Midwife
DX: Z12.31 Encounter for screening mammogram for malignant neoplasm of breast (principal)
CPT/HCPCS: 77063; 77067

== ENCOUNTER 2022-04-28 08:30 | Outpatient (CLI) | payer OTHER, SELFPAY ==
[2022-04-28 09:43] LABS: Prothrombin Time 12.9 Seconds (11.1-14.7)
[2022-04-28 09:44] LABS: Partial Thromboplastin Time 29.5 SECONDS (22.3-36.8)
== END 2022-04-28 08:31 | disposition home or self-care (01) ==
PROVIDERS: PCP Family Medicine; Visit Provider Urology
DX: N20.0 Calculus of kidney (principal); Z01.818 Encounter for other preprocedural examination
CPT/HCPCS: 36415; 85610; 85730; 87086; 87088

== ENCOUNTER 2022-05-13 11:09 | Outpatient (CLI) | payer OTHER, SELFPAY ==
--- NOTE | ~2022-05-13 | US_ITS ---
EXAMINATION: US retroperitoneal comp DATE: 05/13/2022 12:05 INDICATION: Right ureteral stone TECHNIQUE: Multiple ultrasound grayscale images of the kidneys were obtained. COMPARISON: None. FINDINGS: The right kidney measures 11.3 x 4.0 x 5.1 cm. The left kidney measures 11.0 x 5.2 x 5.6 cm. The kidn eys demonstrate normal echogenicity. 1.1 cm anechoic cyst at the upper pole of the right kidney and 1 .2 cm anechoic cyst at the mid left kidney.. 1.6 cm stone/cluster of shadowing stones at a lower pole calyx of the left kidney. There is no hydronephrosis in either kidney. The bladder is normal. IMPRESSION: 1. 1.6 cm stone/cluster of stones at the lower pole of the right kidney. No hydronephrosis. Reviewed, dictated and finalized at location A. IMPRESSION: 1. 1.6 cm stone/cluster of stones at the lower pole of the right kidney. No hy dronephrosis.
== END 2022-05-13 11:10 | disposition home or self-care (01) ==
PROVIDERS: PCP Family Medicine; Visit Provider Urology
DX: N20.1 Calculus of ureter (principal)
CPT/HCPCS: 76770

== ENCOUNTER 2022-09-19 15:36 | Observation (INO) | payer OTHER, SELFPAY ==
[2022-09-19] VITALS (13 sets, daily range): BP systolic 123–150; BP diastolic 65–87; PULSE 69–98; RESP 18–23; TEMP 36.4; O2SAT 97–100; BMI 25.8; BMI 25.0
--- NOTE | ~2022-09-19 | CT_ITS ---
EXAMINATION: CT abdomen pelvis wo con DATE: 09/19/2022 19:20 INDICATION: Right lower quadrant pain and left flank pain. TECHNIQUE: Computed tomography (CT) of the abdomen and pelvis was performed without intravenous contr ast. Automated exposure control and iterative reconstruction technique were employed. The dose-length product was 322.99 mGy-cm. COMPARISON: 04/08/2022 and 06/23/2016 FINDINGS: Dependent atelectasis in the bilateral lower lungs. Heart size is normal. No pericardial or pleural e ffusion. Small sliding-type hiatal hernia. Liver, gallbladder, spleen, pancreas, bilateral adrenal gl ands and left kidney are normal. There is mild right hydroureteronephrosis without evident obstructin g stone along the course of the right ureter. There is a 9 mm stone in the dependent aspect of the ri ght renal pelvis however it does not appear to be obstructing with contiguous low-attenuation urine s een extending from the right renal calyces anterior to the stone to the more caudal ureteropelvic caro ction. There is an additional 5 mm stone at a lower pole of calyx of the right kidney. There are coup le low-attenuation cyst at the upper pole of the right kidney the larger measuring 1.6 cm. There is m ild colonic diverticulosis with a sigmoid predominance. There is no adjacent inflammatory change to suggest diverticulitis. Small bowel and appendix are normal. Bladder, anteverted uterus and right adn exa are normal. 1.4 cm left ovarian cyst/follicle. No free intraperitoneal gas or fluid. No pathologi rhoda enlarged abdominal or pelvic lymphadenopathy. Couple small chronic sclerotic bone islands at th e bilateral posterior iliac spine which are unchanged since 06/23/2016. IMPRESSION: 1. Mild right hydroureteronephrosis with a couple right renal stones at the lower pole of the right k idney and at the dependent aspect of the renal pelvis but which do not appear obstructing in the curr ent locations. 2. 1.6 cm left ovarian cyst/follicle. 3. Small sliding-type hiatal hernia. Reviewed, dictated and finalized at location A. IMPRESSION: 1. Mild right hydroureteronephrosis with a couple right renal stones at the low er pole of the right kidney and at the dependent aspect of the renal pelvis but which do not appear obstructing in the current locations. 2. 1.6 cm left ovarian cyst/follicle. 3. Small sliding-type hiatal hernia.
--- NOTE | 2022-09-19 16:18 | ED.ABDPAIN ---
HPI - Abdominal Pain General Chief Complaint: Abdominal Pain Stated Complaint: Right Flank Pain Time Seen by Provider: 09/19/22 15:49 History of Present Illness HPI narrative: Patient states that yesterday she started having pain in her right side, this seems to go up her abdomen and down her right front thigh. Some mild nausea, no dysuria. Has had symptoms like this before when she had a kidney stone but this feels different. Related Data Home Medications Medication Instructions Recorded Confirmed cyclobenzaprine 10 mg tablet 10 mg PO TID PRN Muscle Pain 04/08/22 04/22/22 Allergies Allergy/AdvReac Type Severity Reaction Status Date / Time NSAIDS (Non-Steroidal Allergy Severe SWELLING Verified 08/26/22 13:08 Anti-Inflamma IN LEGS venom-honey bee Allergy Swelling Verified 08/26/22 13:08 venom-wasp Allergy Swelling Verified 08/26/22 13:08 Cat Dander Allergy Severe chest Uncoded 08/26/22 13:08 congestion Molds and Smuts Allergy Severe chest Uncoded 08/26/22 13:08 congestion Review of Systems Review of Systems: CONST: No fever. HEENT: No sore throat C/V: No chest pain RESP: No cough GI: Reports abdominal pain, nausea : No dysuria. M/S: No joint pain. SKIN: No rash. NEURO: [No headache or focal numbness or weakness] PSYCH: [No depression] [facility] Past Medical History Medical History Arthritis Bilateral leg cramps Cerebral palsy Cerumen impaction Cervical cancer DVT (deep vein thrombosis) in Environmental allergies GERD without esophagitis Hyperlipidemia Migraine headache Patellar tendonitis Renal calculus Seizure Stomach ulcer Wears glasses Surgical History Surgical History H/O LEEP History of lithotripsy (~03/2022) [place] teeth extracted (~1995) Family History Family History Grandparent Cerebrovascular accident Family history of heart disease in male family member before age 55 Mother Cerebrovascular accident Father Alzheimer disease Social History Social History Social History: caffeine use:drinks 1 cup hot tea daily Smoking status: Never smoker Second hand tobacco smoke exposure: No Alcohol intake: former Drinks per week: 1 Alcohol use details: PT STATES WAS ABOUT 1 DRINK A WEEK - STATES LAST DRINK WAS 04/18/22 AND IS QUITING DRINKING FOR GOOD Substance use: never Substance use type: does not use Additional living arrangements comments: PT LIVES WITH SIGNIFICANT OTHER Additional occupation/education comments: Disabled Gender identity (if verbalized by the patient): Female Spiritual care concerns: No Exam Narrative: EXAMINATION OF ORGAN SYSTEMS/BODY AREAS: Constitutional: Vital signs per nursing GENERAL:[No acute distress, non-toxic appearing.] HEAD: Normal with no signs of head trauma. EYES: EOMI, conjunctiva normal ENT: Hearing grossly intact LUNGS: Nonlabored breathing. HEART: [Regular rate and rhythm] ABD: [Soft], [tender to palpation RLQ]; L CVA tenderness EXT: Normal range of motion including hip flexion/extension SKIN: [No rashes or lesions.] NEURO: [Alert and oriented x 3. No gross focal sensory or strength deficits.] PSYCH: Normal affect Course Vital Signs Vital signs: Vital Signs Temperature 97.6 F 09/19/22 15:38 Pulse Rate 98 09/19/22 15:38 Respiratory Rate 18 09/19/22 15:38 Blood Pressure 148/82 H 09/19/22 15:38 Temperature 97.6 F 09/19/22 15:38 Pulse Rate 98 09/19/22 15:38 Respiratory Rate 18 09/19/22 15:38 Blood Pressure 148/82 H 09/19/22 15:38 MDM - Abdominal Pain MDM Narrative Medical decision making narrative: ED COURSE AND MEDICAL DECISION MAKIN-year-old female presenting to the emergency department for acute flank pain and abdominal pain, symptoms are concerning
[2022-09-19] MEDS: ONDANSETRON INJ 4 MG/2 ML VIAL IV PUSH (16:41)
[2022-09-19] MEDS: LACTATED RINGERS 1,000 ML 999 ML IV CONT (16:41)
[2022-09-19 17:03] LABS: Add Urine Microscopic? YES; Appearance Urine Cloudy (Clear); Bacteria Urine Trace /hpf; Bilirubin Urine Negative (Negative); Blood Urine 3+ (Negative); Calcium Oxalate Crystals Urine Many /hpf; Color Urine Amber (Yellow); Glucose Urine UA Negative (Negative); Ketones Urine Negative (Negative); Leukocyte Esterase Ur 2+ LEU/UL (Negative); Mucus Urine Few /lpf; Nitrate Urine Negative (Negative); Protein Urine 2+ mg/dL (Negative); RBC Urine >75 /hpf (0-2); Squamous Epithelial Cell Urine Many /hpf (Few); Urobilinogen Urine Negative mg/dL (<2.0); WBC Urine >75 /hpf
[2022-09-19 17:04] LABS: Specific Grav Ur 1.032 (1.001-1.035)
[2022-09-19] MEDS: cefTRIAXone 2 GM in SODIUM CHLORIDE 0.9% IV 100 ML 200 ML IVPB (17:37)
[2022-09-19 18:15] LABS: Basophils Absolute Auto 0.1 K/mm3 (0.0-0.1); Basophils Percent Auto 0.6 % (0.2-1.2); Eosinophils Absolute Auto 0.6 K/mm3 (0-0.3); Eosinophils Percent Auto 6.2 % (0-4.4); Hematocrit 38.4 % (37.0-47.0); Hemoglobin 12.1 g/dL (12.0-15.0); Immature Granulocyte Absolute 0.03 K/mm3 (0.00-0.031); Immature Granulocyte Percent A 0.3 % (0-0.5); Lymphocytes Absolute Auto 2.96 K/mm3 (0.9-3.2); Lymphocytes Percent Auto 29.3 % (18.3-44.2); Mean Corpuscular HGB Conc 31.5 g/dl (32-36); Mean Corpuscular Hemoglobin 27.9 pg (26-34); Mean Corpuscular Volume 88.5 fl (80-100); Mean Platelet Volume 10.1 fl (7.4-10.4); Monocytes Absolute Auto 0.7 K/mm3 (0.1-0.6); Monocytes Percent Auto 6.9 % (2.6-8.5); Neutrophils Absolute Auto 5.7 K/mm3 (1.3-6.7); Neutrophils Percent Auto 56.7 % (45.5-73.1); Platelet Count Result 313 k/mm3 (150-375); Red Blood Count 4.34 M/mm3 (4.2-5.4); Red Cell Distribution Width 13.8 % (11.5-14.5); White Blood Count 10.1 K/mm3 (4.5-10.0)
[2022-09-19 19:28] LABS: Alanine Aminotransferase 19 U/L (6-35); Albumin Level 3.9 g/dL (3.5-5.1); Alkaline Phosphatase 73 U/L (38-126); Anion Gap 8 mmol/L (8-16); Aspartate Amino Transferase 30 U/L (14-36); Bilirubin,Total 0.2 mg/dL (0.2-1.3); Blood Urea Nitrogen 17 mg/dL (7-17); Calcium 8.4 mg/dL (8.4-10.2); Carbon Dioxide 30 mmol/L (22-30); Chloride 101 mmol/L (98-107); Estimated CRCL calculation 80 ml/min; Estimated Glomerular Filt Rate > 60; Glucose 99 mg/dL (65-110); Lipase 123 U/L (23-300); Potassium 3.8 mmol/L (3.4-5.0); Sodium 139 mmol/L (137-145)
--- NOTE | 2022-09-19 20:24 | PM.IMHP ---
H&P: HPI History of Present Illness Date/Time: 09/19/22 20:24 Chief Complaint: flank pain Narrative: This is a 51-year-old female with past medical history significant for cerebral palsy, cervical cancer, gastroesophageal reflux disease, migraine headache, peptic ulcer. patient presents to the emergency room due to right flank pain with radiation anteriorly and inferior to the hypogastric area, denies any night sweats by had an episode of subjective fever, no chills, no nausea, no vomiting, no diarrhea. No pain or burning with urination. Preliminary workup was significant for CT abdomen and pelvis was reported as: IMPRESSION: 1. Mild right hydroureteronephrosis with a couple right renal stones at the lower pole of the right kidney and at the dependent aspect of the renal pelvis but which do not appear obstructing in the current locations. 2. 1.6 cm left ovarian cyst/follicle. 3. Small sliding-type hiatal hernia. Review of Systems Review of Systems: right flank pain, subjective fever. Constitutional: Constitutional: Denies chills, Reports fever(s) and Denies night sweats Eyes: Eyes: Denies change in vision ENT: Denies dysphagia and Denies odynophagia Cardiovascular: Cardiovascular: Denies chest pain, Denies syncope, Denies irregular heart rhythm, Denies lightheadedness and Denies palpitations Respiratory: Respiratory: Denies chest congestion, Denies cough and Denies dyspnea Gastrointestinal: Gastrointestinal: Denies abdominal pain, Denies dyspepsia, Denies heartburn, Denies nausea and Denies vomiting Genitourinary: Genitourinary: Reports flank pain Musculoskeletal: Musculoskeletal: Denies myalgias, Denies arthralgias, Denies joint swelling and Denies muscle weakness Integumentary/Breasts: Skin/Breast: Denies rash Neurologic: Denies vertigo, Denies dizziness, Denies focal weakness and Denies Sensory deficit (Neuro) Psychiatric: Psychiatric: Reports no additional psychiatric complaints and Reports as per HPI Endocrine: Endocrine: Denies cold intolerance, Denies flushing, Denies heat intolerance, Denies polyphagia, Denies polydipsia and Denies palpitations Hematologic/Lymphatic: Hematologic/Lymphatic: Reports no additional hematologic/lymphatic complaints and Reports as per HPI Allergic/Immunologic: Allergic/Immunologic: Reports no additional allergic/immunologic complaints and Reports as per HPI [facility] Past Medical History Medical History (Updated 09/19/22 @ 23:51 by Sreedhar Espinosa MD) Arthritis Bilateral leg cramps Cerebral palsy Cerumen impaction Cervical cancer DVT (deep vein thrombosis) in Environmental allergies GERD without esophagitis Hyperlipidemia Migraine headache Patellar tendonitis Renal calculus Seizure Stomach ulcer Wears glasses Surgical History Surgical History H/O LEEP History of lithotripsy (~03/2022) [place] teeth extracted (~1995) Family History Family History Grandparent Cerebrovascular accident Family history of heart disease in male family member before age 55 Mother Cerebrovascular accident Father Alzheimer disease Social History Social History Social History: caffeine use:drinks 1 cup hot tea daily Smoking status: Never smoker Second hand tobacco smoke exposure: No Alcohol intake: current Drinks per week: 1 Alcohol use details: PT STATES WAS ABOUT 1 DRINK A WEEK - STATES LAST DRINK WAS 04/18/22 AND IS QUITING DRINKING FOR GOOD Substance use: never Substance use type: does not use Additional living arrangements comments: PT LIVES WITH SIGNIFICANT OTHER Additional occupation/education comments: Disabled Gender identity (if verbalized by the patient): Female Spiritual care concerns: No Has the Lack of Transportation Kept You From Medical Appointments or From Getting Medications?: No Within
--- NOTE | 2022-09-19 21:45 | ADMGEN ---
This patient, Esther Duarte, was admitted to Medical Room 250-01. Patient/family oriented to hospital policies and general routines including ID bracelet, bed and alarms, visiting hours, pain management, procedures, bathroom and other care routines, personal items, smoking policy, room service/diet, and visiting hours. Information on how to activate the Rapid Response Team has been discussed. Patient/Family are encouraged to report perceived risks to care and to ask questions if they do not understand what they are told or what they should do.
[2022-09-20] MEDS: CYCLOBENZAPRINE HCL 10 MG TABLET PO (00:43)
[2022-09-20 04:46] VITALS: BP 111/57; PULSE 69; RESP 17; TEMP 36.8; O2SAT 99
[2022-09-20] MEDS: ASPIRIN 81 MG CHEWABLE TABLET PO (08:36)
[2022-09-20] MEDS: ENOXAPARIN 40 MG/0.4 ML SYRINGE SUB-Q (08:36)
[2022-09-20 08:37] VITALS: RESP 18; O2SAT 99
[2022-09-20] MEDS: MULTIVITAMINS /C LUTEIN (CENTRUM SILVER) TABLET *BKC 1 TAB PO (08:37)
[2022-09-20] MEDS: ACIDOPHILUS/BULGARICUS CHEWABLE TABLET 2 TABLET BY MOUTH (08:37)
[2022-09-20] MEDS: CALCIUM CARBONATE (OSCAL) 500 MG TABLET PO (08:37)
--- NOTE | 2022-09-20 11:58 | PM.IMPN ---
Progress Note: A&P Assessment and Plan (1) UTI (urinary tract infection): Code(s): N39.0 - Urinary tract infection, site not specified Status: Acute Assessment and Plan: Urinalysis grossly abnormal on presentation and patient endorses urinary frequency Urine culture is pending Continue IV ceftriaxone while awaiting culture results Patient complained of right flank pain on admission which is resolved. No CVA tenderness or evidence of pyelonephritis on imaging. White blood cell count essentially normal at 10.1, patient is afebrile (2) Hydroureteronephrosis: Code(s): N13.30 - Unspecified hydronephrosis Status: Acute Assessment and Plan: CT of the abdomen/pelvis shows mild right hydroureteronephrosis with a couple right renal stones at the lower pole of the kidney but do not appear obstructing She will need outpatient urology follow-up Renal function is stable (3) Right kidney stone: Code(s): N20.0 - Calculus of kidney Status: Acute Assessment and Plan: See above (4) GERD without esophagitis: Code(s): K21.9 - Gastro-esophageal reflux disease without esophagitis Status: Chronic Assessment and Plan: No acute issues. Pantoprazole 40 mg daily (5) Migraine headache: Qualifiers: Migraine type: without aura Status migrainosus presence: without status migrainosus Intractability: intractable Qualified Code(s): G43.019 - Migraine without aura, intractable, without status migrainosus Code(s): G43.909 - Migraine, unspecified, not intractable, without status migrainosus Status: Chronic Assessment and Plan: No issues. Sumatriptan as needed Subjective Date/time seen: 09/20/22 11:58 Interval history: Date of service: 09/20/22 Esther Duarte is a 51-year-old female with a history of cerebral palsy, scoliosis, DVT, GERD, hyperlipidemia, seizure disorder who is seen in follow-up for UTI. She is feeling okay today. She denies dysuria or hematuria. She does endorse frequency. Denies urgency. Denies nausea, vomiting, fever, or chills. She is tolerating her diet without difficulty. She denies dizziness or lightheadedness. She is able to ambulate with a cane without difficulty. She had a normal, formed bowel movement yesterday. She endorses 1/10 lower abdominal discomfort. Denies flank pain or back pain. Review of Systems Review of Systems: All systems reviewed & are unremarkable except as noted in HPI and below Exam Narrative: General: Well-nourished, well-appearing 51-year-old female, sitting up in bed, comfortable, NARD Neuro: awake, alert and oriented x4, speech clear, no focal neuro deficits noted HEENMT: normocephalic, atraumatic, EOMI, sclerae anicteric, moist oral mucosa Respiratory: clear to auscultation bilaterally, nonlabored breathing Cardio: regular rate, regular rhythm with S1-S2 Abdomen: nondistended, normoactive bowel sounds, soft, nontender to palpation : No CVA tenderness Extremities: no edema, erythema, or tenderness to palpation, DP pulses 2+ bilaterally Skin: no rashes or lesions, warm and dry Psych: appropriate mood and affect, judgment and insight intact Objective Data Vital Signs Vital Signs: Vital Signs - 24 hr 09/19/22 15:38 09/19/22 17:16 09/19/22 17:46 Temperature 97.6 F Pulse Rate 98 69 76 Respiratory Rate 18 22 H 22 H Blood Pressure 148/82 H 129/84 129/79 Pulse Oximetry 100 98 Oxygen Delivery 09/19/22 18:01 09/19/22 18:16 09/19/22 18:31 Temperature Pulse Rate 84 Respiratory Rate 23 H Blood Pressure 126/87 124/83 150/79 H Pulse Oximetry 100 100 98 Oxygen Delivery 09/19/22 19:46 09/19/22 20:42 09/19/22 20:46 Temperature Pulse Rate 76 75 76 Respiratory Rate 23 H 20 19 Blood Pressure 125/83 134/85 123/85 Pulse Oximetry 99 99 98 Oxygen Delivery 09/19/22 21:01 09/19/22 21:16 09/19/22 21:35 Temperature Pulse
[2022-09-20 14:19] VITALS: BP 126/71; PULSE 80; RESP 14; TEMP 36.3; O2SAT 100
[2022-09-20 19:16] VITALS: BP 116/72; PULSE 99; RESP 18; TEMP 36.7; O2SAT 99
[2022-09-21 04:50] VITALS: BP 124/68; PULSE 69; RESP 18; TEMP 36.1; O2SAT 100
[2022-09-21 05:53] LABS: Hematocrit 40.3 % (37.0-47.0); Hemoglobin 12.8 g/dL (12.0-15.0); Mean Corpuscular HGB Conc 31.8 g/dl (32-36); Mean Corpuscular Hemoglobin 27.4 pg (26-34); Mean Corpuscular Volume 86.3 fl (80-100); Platelet Count Result 335 k/mm3 (150-375); Red Blood Count 4.67 M/mm3 (4.2-5.4); Red Cell Distribution Width 13.6 % (11.5-14.5); White Blood Count 9.4 K/mm3 (4.5-10.0)
[2022-09-21 06:09] LABS: Anion Gap 9 mmol/L (8-16); Blood Urea Nitrogen 16 mg/dL (7-17); Calcium 8.9 mg/dL (8.4-10.2); Carbon Dioxide 30 mmol/L (22-30); Chloride 101 mmol/L (98-107); Estimated CRCL calculation 72 ml/min; Estimated Glomerular Filt Rate > 60; Glucose 102 mg/dL (65-110); Sodium 140 mmol/L (137-145)
--- NOTE | 2022-09-21 08:45 | PM.DS ---
DS: Admitting Diagnosis Discharge Date 09/21/22 0845 Admitting Diagnosis Abnormal UA and hydroureteronephrosis DS: Discharge Diagnosis Discharge Diagnosis (1) UTI (urinary tract infection): Code(s): N39.0 - Urinary tract infection, site not specified Status: Acute Assessment and Plan: Urinalysis grossly abnormal on presentation and patient endorses urinary frequency Urine culture shows contamination Continue IV ceftriaxone, change to cefdinir for a total of 7 days Patient complained of right flank pain on admission which is resolved. No CVA tenderness or evidence of pyelonephritis on imaging. White blood cell count better 9.4 (2) Hydroureteronephrosis: Code(s): N13.30 - Unspecified hydronephrosis Status: Acute Assessment and Plan: CT of the abdomen/pelvis shows mild right hydroureteronephrosis with a couple right renal stones at the lower pole of the kidney but do not appear obstructing She will need outpatient urology follow-up Renal function is stable (3) Right kidney stone: Code(s): N20.0 - Calculus of kidney Status: Acute Assessment and Plan: See above (4) GERD without esophagitis: Code(s): K21.9 - Gastro-esophageal reflux disease without esophagitis Status: Chronic Assessment and Plan: No acute issues. Pantoprazole 40 mg daily (5) Migraine headache: Qualifiers: Intractability: intractable Migraine type: without aura Status migrainosus presence: without status migrainosus Qualified Code(s): G43.019 - Migraine without aura, intractable, without status migrainosus Code(s): G43.909 - Migraine, unspecified, not intractable, without status migrainosus Status: Chronic Assessment and Plan: No issues. Sumatriptan as needed DS: Summary Hospital Course Hospital Course: Patient is a 51-year-old female with past medical history of hyperlipidemia, seizure use, GERD, DVT presented to the ED with right flank pain. UA did show possible UTI high however patient had no complaints of urinary issues. Urine culture came back contaminated white blood cell count normal at 9.4. It does show some hydroureteronephrosis which the patient will need outpatient follow-up with. Patient is feeling much better. Vital signs and labs have been stable. Will continue antibiotics for total of 7 days. Patient is ready to be discharged. Patient feels better today. Patient denies any chest pain, shortness a breath, nausea, vomiting, diarrhea, constipation, weakness or fatigue. Patient being discharged home. UTI education has been given. She is really insisting on discharge now. She understands the teaching and is stable for DC. Status at Discharge Functional status at discharge: uses cane/walker Overall status at discharge: patient is progressing back to baseline Time Spent with Patient Time attestation: Total time spent providing and/or coordinating discharge services: 36 minutes Time spent: Greater than 30 minutes Specific discharge activities: Diagnostic testing, chart review, developing a treatment plan, education, care coordination documentation, physical exam, result review Exam Const: General: comfortable, no acute distress, well developed, alert, awake and average body habitus Nutritional Appearance: average body habitus Orientation/consciousness: patient oriented x3 HENMT: Head: normal to inspection, normocephalic and atraumatic Ears: hearing grossly normal bilaterally Face/Nose/Sinus: normal facial exam Face and sinus: normal facial exam Eyes: General: appearance normal, both eyes and all related structures Pupils: Equal, round and reactive pupils present EOM: EOMs intact bilaterally Neck: Neck: full ROM, no lymphadenopathy and no JVD Thyroid: thyroid normal Lymphatic: no lymphadenopathy noted Resp: Effort & Inspection: normal respiratory effort and able to speak in complete sentences Auscu
[2022-09-21] MEDS: ACIDOPHILUS/BULGARICUS CHEWABLE TABLET 2 TABLET BY MOUTH (10:25)
[2022-09-21] MEDS: CALCIUM CARBONATE (OSCAL) 500 MG TABLET PO (10:25)
[2022-09-21] MEDS: ENOXAPARIN 40 MG/0.4 ML SYRINGE SUB-Q (10:25)
[2022-09-21] MEDS: ASPIRIN 81 MG CHEWABLE TABLET PO (10:25)
[2022-09-21] MEDS: MULTIVITAMINS /C LUTEIN (CENTRUM SILVER) TABLET *BKC 1 TAB PO (10:26)
== END 2022-09-21 12:25 | disposition home or self-care (01) ==
LOC: ANHED 20:15 → ANH2MED 23:06
PROVIDERS: Emergency Medicine; Admitting Provider Internal Medicine; Emergency Provider Emergency Medicine; PCP Family Medicine; Visit Provider Physician Assistant
DX: N39.0 Urinary tract infection, site not specified (principal); N13.2 Hydronephrosis with renal and ureteral calculous obstruction; R10.9 Unspecified abdominal pain; G80.9 Cerebral palsy, unspecified; K21.9 Gastro-esophageal reflux disease without esophagitis; E78.5 Hyperlipidemia, unspecified; Z85.41 Personal history of malignant neoplasm of cervix uteri; G40.909 Epilepsy, unspecified, not intractable, without status epilepticus; G43.019 Migraine without aura, intractable, without status migrainosus
CPT/HCPCS: 36415; 74176; 80048; 80053; 81001; 83690; 85025; 85027; 87086; 87088; 96361; 96365; 96367; 96372; 96375; 99285; A9270; G0378; G0379; J0131; J0696; J1650; J2405; J7120

== ENCOUNTER 2022-10-03 12:32 | Observation (INO) | payer OTHER, SELFPAY ==
[2022-10-03] VITALS (8 sets, daily range): BP systolic 119–140; BP diastolic 70–91; PULSE 64–97; RESP 12–18; TEMP 36.3–37.1; O2SAT 98–100
--- NOTE | ~2022-10-03 | CT_ITS ---
EXAMINATION: CT abdomen pelvis wo con DATE: 10/03/2022 13:40 INDICATION: Right flank pain, nausea, constipation. History kidney stones. TECHNIQUE: Computed tomography (CT) of the abdomen and pelvis was performed without intravenous contr ast. Automated exposure control and iterative reconstruction technique were employed. Exam dose: 341 .58 mGy-cm total exam DLP. COMPARISON: 09/19/2022 CT abdomen pelvis noncontrast examination FINDINGS: No infiltrate or consolidation at the lung bases. Heart size is within normal limits. No pe ricardial or pleural effusion. Normal morphology of the adrenal glands. The liver, spleen, pancreas are unremarkable. No bile duct o r pancreatic duct dilatation. 10 mm stone in the right renal pelvis. There is thickening of the wall of the right renal pelvis and mild right hydronephrosis and pelviectasis. The stones do not appear to be obstructing. Consider righ t sided urinary tract infection. Probable approximately 1.3 cm lateral upper pole right renal cyst. No left urinary tract calculus or hydroureteronephrosis. The urinary bladder is distended but no bladder wall thickening or apparent intraluminal filling defe ct is noted. The uterus and adnexal areas are unremarkable. Normal caliber of the abdominal aorta. No intraperitoneal or retroperitoneal or pelvic mass lesion or adenopathy or ascites. Diverticulosis of the colon; no CT evidence of diverticulitis. No bowel obstruction, bowel wall thick ening, pneumatosis or intraperitoneal free air is detected. No evidence of appendicitis. Small fat-containing umbilical hernia. No suspicious osteolytic or osteoblastic lesions. IMPRESSION: Right renal pelvic 1 cm stone and small nonobstructing stones of the lower pole right ki dney; the elderly stones appears to be obstructing. Thickening along the right renal pelvis and mild right hydronephrosis. Consider right renal infection Diverticulosis of the colon; no CT evidence of diverticulitis Reviewed, dictated and finalized at [facility]. Reviewed, dictated and finalized at location [facility]. IMPRESSION: Right renal pelvic 1 cm stone and small nonobstructing stones of t he lower pole right kidney; the elderly stones appears to be obstructing. Thickening along the right renal pelvis and mild right hydronephrosis. Consider right renal infection Diverticulosis of the colon; no CT evidence of diverticulitis
--- NOTE | ~2022-10-03 | XR_ITS ---
EXAMINATION: XR retrograde pyelo w/stent RT DATE: 10/03/2022 16:00 CDT INDICATION: RIGHT SIDE RETRO WITH STENT . TECHNIQUE: 3 fluoroscopic images including a 10 image cine clip of the right abdomen and pelvis were obtained during right retrograde pyelography with stent placement performed by the surgeon. I was not present in the operating room. Fluoroscopy exposure time was 18.5 seconds. DAP [id number] mGym2. COMPARISON: CT, same date FINDINGS: Contrast injection into the right collecting system reveals mild right caliectasis. Wire access accom plished to the right upper pole. Post stent deployment the distal stent is located over the bladder, the proximal stent is not visible in the provided image. IMPRESSION: Fluoroscopic documentation of right retrograde pyelography with stent placement. Please refer to the operative note for complete procedural details. Reviewed, dictated and finalized at [facility]. IMPRESSION: Fluoroscopic documentation of right retrograde pyelography with stent placement . Please refer to the operative note for complete procedural details.
--- NOTE | 2022-10-03 12:54 | ED.ABDPAIN ---
HPI - Abdominal Pain General Chief Complaint: Abdominal Pain Stated Complaint: right flank pain Time Seen by Provider: 10/03/22 12:36 Source: RN notes reviewed History of Present Illness HPI narrative: Patient presents emergency department from home for flank pain. Patient states pain began last night. The pain is located in the right flank and radiates around the right side the abdomen. Described as sharp and stabbing. States has been associated with nausea and vomiting. She states she has not take anything for the pain. She denies any fevers or chills chest pain shortness of breath or any other symptoms. States she does have a history of kidney stones in the past Related Data Home Medications Medication Instructions Recorded Confirmed cyclobenzaprine 10 mg tablet 10 mg PO TID PRN Muscle Pain 04/08/22 09/28/22 aspirin 81 mg tablet 81 mg PO DAILY 09/19/22 09/28/22 calcium carbonate 600 mg calcium 600 mg PO DAILY 09/19/22 09/28/22 (1,500 mg) tablet lactobacillus combination no.8 3 1 cell PO DAILY 09/19/22 09/28/22 billion cell capsule [id number]-NZ 0.4 mg-calcium 162 1 tablet PO DAILY 09/19/22 09/28/22 mg-iron 18 qd-kvahqpf-ykhbjp tablet sumatriptan succinate 50 mg tablet 50 mg PO PRN PRN MIGRAINE 09/20/22 09/28/22 Allergies Allergy/AdvReac Type Severity Reaction Status Date / Time NSAIDS (Non-Steroidal Allergy Severe SWELLING Verified 10/03/22 13:05 Anti-Inflamma IN LEGS venom-honey bee Allergy Swelling Verified 10/03/22 13:05 venom-wasp Allergy Swelling Verified 10/03/22 13:05 Cat Dander Allergy Severe chest Uncoded 10/03/22 13:05 congestion Molds and Smuts Allergy Severe chest Uncoded 10/03/22 13:05 congestion Review of Systems Review of Systems: Gen.: Denies fevers or chills ENT: Denies congestion Respiratory: Denies shortness of breath or cough CV: Denies chest pain or palpitations GI: See HPI denies burning, urgency, frequency or hematuria Musculoskeletal: Denies back pain or muscle pain Neuro: Denies numbness, tingling, weakness or focal weakness Skin: Denies rash Except as documented, all other systems reviewed and negative PMF Past Medical History Medical History Arthritis Bilateral leg cramps Cerebral palsy Cerumen impaction Cervical cancer DVT (deep vein thrombosis) in Environmental allergies GERD without esophagitis Hyperlipidemia Migraine headache Patellar tendonitis Renal calculus Seizure Stomach ulcer Wears glasses Surgical History Surgical History H/O LEEP History of lithotripsy (~03/2022) [place] teeth extracted (~1995) Family History Family History Grandparent Cerebrovascular accident Family history of heart disease in male family member before age 55 Mother Cerebrovascular accident Father Alzheimer disease Social History Social History Social History: caffeine use:drinks 1 cup hot tea daily Smoking status: Never smoker Second hand tobacco smoke exposure: No Alcohol intake: current Drinks per week: 1 Alcohol use details: PT STATES WAS ABOUT 1 DRINK A WEEK - STATES LAST DRINK WAS 04/18/22 AND IS QUITING DRINKING FOR GOOD Substance use: never Substance use type: does not use Has the Lack of Transportation Kept You From Medical Appointments or From Getting Medications?: No Within the Past 12 Months, Were You Worried Whether Your Food Would Run Out Before You Got Money to Buy More?: Never True What is Your Housing Situation Today?: I Have Housing Are You Worried That in the Next 2 Months, You May Not Have Your Own Housing to Live In?: No Do You Have Trouble Paying Your Heating Or Electricity Bill?: No Do You Have Trouble Paying For Medicines?: No Are You Currently Unemployed and Looking for Work?: No Hig
[2022-10-03] MEDS: SODIUM CHLORIDE 0.9% IV 1,000 ML 999 ML IV CONT (12:58)
[2022-10-03] MEDS: ONDANSETRON INJ 4 MG/2 ML VIAL IV PUSH (12:59)
[2022-10-03 13:02] LABS: Basophils Percent Auto 0.4 % (0.2-1.2); Eosinophils Absolute Auto 0.6 K/mm3 (0-0.3); Eosinophils Percent Auto 5.5 % (0-4.4); Hematocrit 38.1 % (37.0-47.0); Hemoglobin 12.2 g/dL (12.0-15.0); Immature Granulocyte Absolute 0.04 K/mm3 (0.00-0.031); Immature Granulocyte Percent A 0.4 % (0-0.5); Lymphocytes Absolute Auto 3.21 K/mm3 (0.9-3.2); Lymphocytes Percent Auto 28.2 % (18.3-44.2); Mean Corpuscular Hemoglobin 28.2 pg (26-34); Mean Corpuscular Volume 88.2 fl (80-100); Monocytes Absolute Auto 0.9 K/mm3 (0.1-0.6); Monocytes Percent Auto 7.6 % (2.6-8.5); Neutrophils Absolute Auto 6.6 K/mm3 (1.3-6.7); Neutrophils Percent Auto 57.9 % (45.5-73.1); Platelet Count Result 326 k/mm3 (150-375); Red Blood Count 4.32 M/mm3 (4.2-5.4); Red Cell Distribution Width 13.5 % (11.5-14.5); White Blood Count 11.4 K/mm3 (4.5-10.0)
[2022-10-03 13:03] LABS: Appearance Urine Cloudy (Clear); Bilirubin Urine Negative (Negative); Blood Urine 3+ (Negative); Color Urine Yellow (Yellow); Glucose Urine UA Negative (Negative); Ketones Urine Trace mg/dL (Negative); Leukocyte Esterase Ur 1+ LEU/UL (Negative); Nitrate Urine Negative (Negative); Protein Urine 2+ mg/dL (Negative); Specific Grav Ur >= 1.030 (1.001-1.035); Urobilinogen Urine 0.2 mg/dL (<2.0); pH Urine 5.5 (5.0-9.0)
[2022-10-03 13:13] LABS: Bacteria Urine Trace /hpf; Budding Yeast Urine Present /hpf; Mucus Urine Rare /lpf; RBC Urine >75 /hpf (0-2); Squamous Epithelial Cell Urine Many /hpf (Few); Transitional Epi Cells Urine Rare /hpf (None Seen); WBC Urine >75 /hpf
[2022-10-03 13:18] LABS: Alanine Aminotransferase 21 U/L (6-35); Albumin Level 4.4 g/dL (3.5-5.1); Alkaline Phosphatase 71 U/L (38-126); Anion Gap 13 mmol/L (8-16); Aspartate Amino Transferase 27 U/L (14-36); Bilirubin,Total 0.3 mg/dL (0.2-1.3); Blood Urea Nitrogen 14 mg/dL (7-17); Calcium 9.2 mg/dL (8.4-10.2); Carbon Dioxide 28 mmol/L (22-30); Chloride 99 mmol/L (98-107); Estimated CRCL calculation 80 ml/min; Estimated Glomerular Filt Rate > 60; Glucose 94 mg/dL (65-110); Potassium 3.3 mmol/L (3.4-5.0); Sodium 140 mmol/L (137-145)
[2022-10-03 13:30] LABS: Add Urine Microscopic? YES
[2022-10-03] MEDS: MORPHINE SULFATE (*CRX) 4 MG/ML INJ IV PUSH (14:14)
[2022-10-03] MEDS: SODIUM CHLORIDE 0.9% IV 1,000 ML 125 ML IV CONT ×2 (14:51→18:25)
--- NOTE | 2022-10-03 15:15 | PM.IMHP ---
H&P: HPI History of Present Illness Date/Time: 10/03/22 15:15 Chief Complaint: Right-sided pain. Narrative: This is a 51-year-old female with history of kidney stones who presented to the emergency department from home for evaluation of right-sided pain. Last night she developed sudden, intermittent sharp and shooting pain in the right mid back radiating to the right flank and right mid to lower abdomen. Her pain has been so severe that she has been nauseated and reports several episodes of emesis. Her symptoms are similar to though she has had with previous kidney stones and thus she came in today for evaluation. CT of the abdomen and pelvis showed a 10 millimeter obstructing right renal pelvic stone with signs of infection and she is being admitted in this setting. At the time my evaluation she is awaiting transport to OR for cystoscopy with plans for ureteral stent placement per Dr. Bailey. She has not had any urinary symptoms and she specifically denies hematuria, dysuria, hesitancy, urgency, etc.. She reports a subjective fever but has not had a documented temperature and she has not had chills or sweats. Review of Systems Review of Systems: Twelve systems were reviewed and are negative except for as per HPI. [facility] Past Medical History Medical History (Updated 10/03/22 @ 20:05 by Rekha Kuhn PA-C) Arthritis Cerebral palsy Cervical cancer DVT (deep vein thrombosis) in Environmental allergies GERD without esophagitis Hyperlipidemia Migraine headache Patellar tendonitis Renal calculus Seizure Stomach ulcer Wears glasses Surgical History Surgical History (Updated 10/03/22 @ 20:01 by Rekha Kuhn PA-C) H/O LEEP History of cystoscopy History of lithotripsy (~03/2022) History of lithotripsy [place] teeth extracted (~1995) Family History Family History Grandparent Cerebrovascular accident Family history of heart disease in male family member before age 55 Mother Cerebrovascular accident Father Alzheimer disease Social History Social History (Updated 10/03/22 @ 20:02 by Rekha Kuhn PA-C) Social History: Surrogate medical decision maker: Renan Pierre, significant other. Code status: Full code. Smoking status: Never smoker Second hand tobacco smoke exposure: No Alcohol intake: current Drinks per week: 1 Alcohol use details: PT STATES WAS ABOUT 1 DRINK A WEEK - STATES LAST DRINK WAS 04/18/22 AND IS QUITING DRINKING FOR GOOD Substance use: never Substance use type: does not use Has the Lack of Transportation Kept You From Medical Appointments or From Getting Medications?: No Within the Past 12 Months, Were You Worried Whether Your Food Would Run Out Before You Got Money to Buy More?: Never True What is Your Housing Situation Today?: I Have Housing Are You Worried That in the Next 2 Months, You May Not Have Your Own Housing to Live In?: No Do You Have Trouble Paying Your Heating Or Electricity Bill?: No Do You Have Trouble Paying For Medicines?: No Are You Currently Unemployed and Looking for Work?: No Highest Level of Education Completed: Associate Degree Do You Have Trouble With Childcare or the Care of a Family Member?: No Additional living arrangements comments: PT LIVES WITH SIGNIFICANT OTHER Additional occupation/education comments: Disabled Gender identity (if verbalized by the patient): Female Spiritual care concerns: No Meds Home Medications and Allergies Home Medications Medication Instructions Recorded Confirmed Type cyclobenzaprine 10 mg tablet 10 mg PO TID PRN Muscle Pain 04/08/22 10/03/22 History cetirizine 10 mg tablet (Allergy 10 mg PO DAILY PRN Congestion #90 09/01/22 10/03/22 Rx Relief (cetirizine)) tabs aspirin 81 mg tablet 81 mg PO DAILY 09/19/22 10/03/22 History calcium carbonate 600 mg calcium 600 mg PO DAILY 09/19/22 10/03/22 History (1,500 mg) tablet
--- NOTE | 2022-10-03 15:31 | WPDANESEPP ---
Anes - Eval Pre Procedure Procedure: Operation Date: 10/03/22 17:00 Proposed Procedures p Cysto, RPG, Stone Ext, Stent Placement(Right) - Prosper Bailey MD Date/Time: 10/03/22 15:31 Surgeon: Leo Preop Diagnosis: right renal pelvis stone Pre Op Diagnosis: Right Kidney Stone, UTI Patient Data Age: 51 Gender: F Height: 1.6 m Weight: 65 kg Last Vital Signs Temp 97.3 F L 10/03/22 12:36 Pulse 97 10/03/22 12:36 Resp 15 10/03/22 12:36 BP 140/82 10/03/22 12:36 Pulse Ox 99 10/03/22 12:36 O2 Del Method Room Air 10/03/22 12:36 Allergies Allergy/AdvReac Type Severity Reaction Status Date / Time NSAIDS (Non-Steroidal Allergy Severe SWELLING Verified 10/03/22 13:05 Anti-Inflamma IN LEGS venom-honey bee Allergy Swelling Verified 10/03/22 13:05 venom-wasp Allergy Swelling Verified 10/03/22 13:05 Cat Dander Allergy Severe chest Uncoded 10/03/22 13:05 congestion Molds and Smuts Allergy Severe chest Uncoded 10/03/22 13:05 congestion Home Medications Medication Instructions Recorded Confirmed Type cyclobenzaprine 10 mg tablet 10 mg PO TID PRN Muscle Pain 04/08/22 09/28/22 History cetirizine 10 mg tablet (Allergy 10 mg PO DAILY PRN Congestion #90 09/01/22 09/28/22 Rx Relief (cetirizine)) tabs aspirin 81 mg tablet 81 mg PO DAILY 09/19/22 09/28/22 History calcium carbonate 600 mg calcium 600 mg PO DAILY 09/19/22 09/28/22 History (1,500 mg) tablet lactobacillus combination no.8 3 1 cell PO DAILY 09/19/22 09/28/22 History billion cell capsule jjeziepe-bws-NX 0.4 mg-calcium 162 1 tablet PO DAILY 09/19/22 09/28/22 History mg-iron 18 mo-ulewtjz-awymbx tablet sumatriptan succinate 50 mg tablet 50 mg PO PRN PRN MIGRAINE 09/20/22 09/28/22 History Laboratory Tests 10/03/22 10/03/22 10/03/22 12:53 12:53 12:53 WBC 11.4 K/mm3 H K/mm3 (4.5-10.0) RBC 4.32 M/mm3 M/mm3 (4.2-5.4) Hgb 12.2 g/dL g/dL (12.0-15.0) Hct 38.1 % % (37.0-47.0) MCV 88.2 fl fl (80-100) MCH 28.2 pg pg (26-34) MCHC 32.0 g/dl g/dl (32-36) RDW 13.5 % % (11.5-14.5) Plt Count 326 k/mm3 k/mm3 (150-375) MPV 10.0 fl fl (7.4-10.4) Immature Gran % (Auto) 0.4 % % (0-0.5) Neut % (Auto) 57.9 % % (45.5-73.1) Lymph % (Auto) 28.2 % % (18.3-44.2) [place] % (Auto) 7.6 % % (2.6-8.5) Eos % (Auto) 5.5 % H % (0-4.4) Baso % (Auto) 0.4 % % (0.2-1.2) Lymph # (Auto) 3.21 K/mm3 H K/mm3 (0.9-3.2) [place] # (Auto) 0.9 K/mm3 H K/mm3 (0.1-0.6) Eos # (Auto) 0.6 K/mm3 H K/mm3 (0-0.3) Baso # (Auto) 0.0 K/mm3 K/mm3 (0.0-0.1) Abs Immat Gran (auto) 0.04 K/mm3 H K/mm3 (0.00-0.031) Absolute Neuts (auto) 6.6 K/mm3 K/mm3 (1.3-6.7) Absolute Nucleated RBC 0.0 K/mm3 K/mm3 (0.0-0.012) Nucleated RBC % 0.0 % % (0.0-0.2) Sodium 140 mmol/L mmol/L (137-145) Potassium 3.3 mmol/L L mmol/L (3.4-5.0) Chloride 99 mmol/L mmol/L (98-107) Carbon Dioxide 28 mmol/L mmol/L (22-30) Anion Gap 13 mmol/L mmol/L (8-16) BUN 14 mg/dL mg/dL (7-17) Creatinine 0.60 mg/dL L mg/dL (0.7-1.0) Estim Creat Clear Calc 80 ml/min ml/min Estimated GFR > 60 (59 - ) Glucose 94 mg/dL mg/dL (65-110) Calcium 9.2 mg/dL mg/dL (8.4-10.2) Total Bilirubin 0.3 mg/dL mg/dL (0.2-1.3) AST 27 U/L U/L (14-36) ALT 21 U/L U/L (6-35) Alkaline Phosphatase 71 U/L U/L (38-126) Total Protein 8.0 g/dL g/dL (6.3-8.2) Albumin 4.4 g/dL g/dL (3.5-5.1) Urine Color Yellow (Yellow) Urine Appearance Cloudy H (Clear) Urine pH 5.5 (5.0-9.0) Ur Specific Cook >= 1.030 (1.001-1.035) Urin
[2022-10-03 15:36] LABS: SARS-CoV-2 RNA PCR Negative
--- NOTE | 2022-10-03 15:59 | WPDURCON ---
Assessment and Plan Assessment and plan (1) Kidney stone on right side: Code(s): N20.0 - Calculus of kidney Status: Acute (2) Hydroureteronephrosis: Code(s): N13.30 - Unspecified hydronephrosis Status: Acute (3) UTI (urinary tract infection): Code(s): N39.0 - Urinary tract infection, site not specified Status: Acute Assessment and Plan: 10 mm obstructing right renal pelvic stone with signs of obstructive pyelonephritis Will plan cystoscopy with ureteral stent placement today. After thorough treatment for her current infection she will likely need right ESWL as definitive management for her stone. Urology Consult Note HPI Date Seen: 10/03/22 Requesting Physician: Smita Antonio MD Primary Care Provider: Ayaz Jimenez MD Consult Narrative Narrative: Esther Duarte is a 51 year old female is nontoxic from previous urolithiasis in March 2022. At that time she had a stent placed but never followed up for definitive care at our office in [place] (which takes her medical insurance). Her stent has since been removed and she is now back with right flank pain and infected looking urine. Imaging reveals a 10 mm obstructing right renal pelvic/UPJ stone. Review of Systems Cardiovascular: Cardiovascular: Denies chest pain, Denies lightheadedness, Denies palpitations and Denies dyspnea Respiratory: Respiratory: Denies dyspnea Gastrointestinal: Gastrointestinal: Reports abdominal pain, Denies diarrhea, Denies nausea and Denies vomiting Genitourinary: Genitourinary: Denies hematuria and Denies dysuria Endocrine: Endocrine: Denies palpitations PMFSH Past Medical History Medical History Arthritis Bilateral leg cramps Cerebral palsy Cerumen impaction Cervical cancer DVT (deep vein thrombosis) in Environmental allergies GERD without esophagitis Hyperlipidemia Migraine headache Patellar tendonitis Renal calculus Seizure Stomach ulcer Wears glasses Surgical History Surgical History H/O LEEP History of lithotripsy (~03/2022) [place] teeth extracted (~1995) Family History Family History Grandparent Cerebrovascular accident Family history of heart disease in male family member before age 55 Mother Cerebrovascular accident Father Alzheimer disease Social History Social History Social History: caffeine use:drinks 1 cup hot tea daily Smoking status: Never smoker Second hand tobacco smoke exposure: No Alcohol intake: current Drinks per week: 1 Alcohol use details: PT STATES WAS ABOUT 1 DRINK A WEEK - STATES LAST DRINK WAS 04/18/22 AND IS QUITING DRINKING FOR GOOD Substance use: never Substance use type: does not use Has the Lack of Transportation Kept You From Medical Appointments or From Getting Medications?: No Within the Past 12 Months, Were You Worried Whether Your Food Would Run Out Before You Got Money to Buy More?: Never True What is Your Housing Situation Today?: I Have Housing Are You Worried That in the Next 2 Months, You May Not Have Your Own Housing to Live In?: No Do You Have Trouble Paying Your Heating Or Electricity Bill?: No Do You Have Trouble Paying For Medicines?: No Are You Currently Unemployed and Looking for Work?: No Highest Level of Education Completed: Associate Degree Do You Have Trouble With Childcare or the Care of a Family Member?: No Additional living arrangements comments: PT LIVES WITH SIGNIFICANT OTHER Additional occupation/education comments: Disabled Gender identity (if verbalized by the patient): Female Spiritual care concerns: No Meds Home Medications and Allergies Home Medications Medication Instructions Recorded Confirmed Type cy
--- NOTE | 2022-10-03 16:02 | P.PNAN_ITS ---
Anes - Eval Final PreProcedure Day of Procedure 10/03/22 16:02 Patient weight: normal Heart: regular rate and rhythm Lungs: clear to auscultation Airway: Mallampati scale class II Neurological: alert and oriented Last oral intake: >/= 8 hours ASA classification: III Emergent: no Anesthetic plan: proceed Anesthesia type and monitoring: general LMA and standard monitoring Results Review: All pre-operative results and documents have been reviewed as part of the pre- operative evaluation. Informed Consent: The patient's anesthetic plan and its attendant risks and benefits were discussed with the patient/family/POA. Questions were solicited and answers provided to the satisfaction of the patient/family/POA.
--- NOTE | 2022-10-03 16:03 | WPDHPUPDATE1 ---
History and Physical Update Update Date/Time: 10/03/22 16:03 History and Physical has been reviewed, including an updated exam of the patient. There are NO changes in the patient's condition. Risks, benefits, and alternatives have been discussed and questions answered. Patient agrees to proceed with procedure.
--- NOTE | 2022-10-03 16:28 | W.PM.PROC2 ---
Procedure Note - Detailed Date of Procedure 10/03/22 Pre-op Diagnosis Right renal stone, UTI Post-op Diagnosis Same Procedure Performed Cystoscopy, right retrograde pyelography, right ureteral stent placement Surgeon Prosper Bailey MD Anesthesia General Description of Procedure The patient was brought to the operative suite where she was prepped and draped in a routine sterile fashion while in the dorsal lithotomy position. A 19 F rigid cystoscope was placed in her bladder and the bladder was circumferentially inspected. The bladder neck and urethra were endoscopically normal. The bladder mucosa was without hyperemia. There was no intravesical foreign body or neoplasm. There was a single orthotopic ureteral orifice bilaterally. Using an angiographic catheter obtained a right retrograde pyelogram to ensure appropriate positioning of a ureteral stent. I advanced a .035 glidewire into the right renal pelvis under fluoroscopy. A 4.8F variable length ureteral stent was positioned with the proximal coil in the renal pelvis and the distal coil in the bladder. Scopes and wires were removed after emptying the patient's bladder. Drains Yes Packing No Pathology None sent Complications No immediate complications Condition Stable
[2022-10-03] MEDS: LACTATED RINGERS 1,000 ML 30 ML IV CONT (16:30)
--- NOTE | 2022-10-03 18:06 | ADMGEN ---
This patient, Esther Duarte, was admitted to 3 [facility] Surg Room 311-01. Patient/family oriented to hospital policies and general routines including ID bracelet, bed and alarms, visiting hours, pain management, procedures, bathroom and other care routines, personal items, smoking policy, room service/diet, and visiting hours. Information on how to activate the Rapid Response Team has been discussed. Patient/Family are encouraged to report perceived risks to care and to ask questions if they do not understand what they are told or what they should do.
[2022-10-03] MEDS: CYCLOBENZAPRINE HCL 10 MG TABLET PO (18:25)
[2022-10-03 21:39] LABS: Magnesium 1.9 mg/dL (1.6-2.3); Potassium 3.1 mmol/L (3.4-5.0)
[2022-10-04] MEDS: POTASSIUM CHLORIDE 20 MEQ TABLET PO
--- NOTE | 2022-10-04 01:15 | PC.NURSE ---
Daylight Savings Time For Daylight Savings Time Ending in the Fall - Clocks are moved back. For Daylight Savings Time Beginning in the Spring - Clocks are moved ahead. For [facility], the time of change occurs at 0200 hrs. Time is taken from the food server. This entry on the patient's chart recognizes the change in time reflected during documentation. Example: 2 entries for vital signs may be charted for 0200 hrs.
[2022-10-04] MEDS: CYCLOBENZAPRINE HCL 10 MG TABLET PO (04:53)
[2022-10-04 06:00] VITALS: BP 125/77; PULSE 81; RESP 16; TEMP 36.5; O2SAT 100
[2022-10-04 07:46] LABS: Basophils Absolute Auto 0.1 K/mm3 (0.0-0.1); Basophils Percent Auto 0.6 % (0.2-1.2); Eosinophils Absolute Auto 0.5 K/mm3 (0-0.3); Hematocrit 37.3 % (37.0-47.0); Hemoglobin 11.7 g/dL (12.0-15.0); Immature Granulocyte Absolute 0.04 K/mm3 (0.00-0.031); Immature Granulocyte Percent A 0.4 % (0-0.5); Lymphocytes Absolute Auto 2.16 K/mm3 (0.9-3.2); Lymphocytes Percent Auto 21.6 % (18.3-44.2); Mean Corpuscular HGB Conc 31.4 g/dl (32-36); Mean Corpuscular Hemoglobin 27.5 pg (26-34); Mean Corpuscular Volume 87.6 fl (80-100); Mean Platelet Volume 10.2 fl (7.4-10.4); Monocytes Absolute Auto 0.7 K/mm3 (0.1-0.6); Monocytes Percent Auto 7.3 % (2.6-8.5); Neutrophils Absolute Auto 6.5 K/mm3 (1.3-6.7); Neutrophils Percent Auto 65.1 % (45.5-73.1); Platelet Count Result 309 k/mm3 (150-375); Red Blood Count 4.26 M/mm3 (4.2-5.4); Red Cell Distribution Width 13.5 % (11.5-14.5)
[2022-10-04 08:00] VITALS: PULSE 81; RESP 16; O2SAT 100
[2022-10-04 08:08] LABS: Anion Gap 10 mmol/L (8-16); Blood Urea Nitrogen 6 mg/dL (7-17); Calcium 8.4 mg/dL (8.4-10.2); Carbon Dioxide 29 mmol/L (22-30); Chloride 103 mmol/L (98-107); Estimated CRCL calculation 105 ml/min; Estimated Glomerular Filt Rate > 60; Glucose 94 mg/dL (65-110); Potassium 3.9 mmol/L (3.4-5.0); Sodium 142 mmol/L (137-145)
[2022-10-04] MEDS: SODIUM CHLORIDE 0.9% IV 1,000 ML 75 ML IV CONT (09:57)
--- NOTE | 2022-10-04 11:22 | PM.DS ---
DS: Admitting Diagnosis Discharge Date October 04, 2022 Admitting Diagnosis kidney stone, UTI DS: Discharge Diagnosis Discharge Diagnosis (1) Urinary tract infection: Code(s): N39.0 - Urinary tract infection, site not specified Status: Acute (2) Obstruction of right ureteropelvic junction due to stone: Code(s): N20.1 - Calculus of ureter Status: Acute (3) Hydroureteronephrosis: Code(s): N13.30 - Unspecified hydronephrosis Status: Acute DS: Summary Hospital Course Hospital Course: patient is a 51-year-old female came with ureteral stone. Status post stent placement. She also was noted to have UTI. Started on antibiotics. These will be continued on discharge. She will need follow-up in [place] for lithotripsy. Dr. Bailey office will notify the patient on . Patient is aware. Time Spent with Patient Time attestation: Total time spent providing and/or coordinating discharge services: Exam Narrative: General: alert and oriented Psych: appropriate mood nad affect Eyes: PERRLA Neck: Trachea midline, no new lesions Skin: no changes Lungs: CTA Cardiac: Normal S1,S2, no MGR ABD: soft, nd, nt, nbs Ext: no new lesions, no cce Vasc: Pulses intact DS: Data Data Completed and Pending Labs on day of discharge: Labs from last 24 hours 10/04/22 10/04/22 10/03/22 06:59 06:59 21:01 WBC 10.0 RBC 4.26 Hgb 11.7 L Hct 37.3 MCV 87.6 MCH 27.5 MCHC 31.4 L RDW 13.5 Plt Count 309 MPV 10.2 Immature Gran % (Auto) 0.4 Neut % (Auto) 65.1 Lymph % (Auto) 21.6 [place]ier % (Auto) 7.3 Eos % (Auto) 5.0 H Baso % (Auto) 0.6 Lymph # (Auto) 2.16 [place] # (Auto) 0.7 H Eos # (Auto) 0.5 H Baso # (Auto) 0.1 Abs Immat Gran (auto) 0.04 H Absolute Neuts (auto) 6.5 Absolute Nucleated RBC 0.0 Nucleated RBC % 0.0 Sodium 142 Potassium 3.9 3.1 L Chloride 103 Carbon Dioxide 29 Anion Gap 10 BUN 6 L D Creatinine 0.50 L Estim Creat Clear Calc 105 Estimated GFR > 60 Glucose 94 Calcium 8.4 Magnesium 1.9 Total Bilirubin AST ALT Alkaline Phosphatase Total Protein Albumin Urine Color Urine Appearance Urine pH Ur Specific Lincoln Urine Protein Urine Glucose (UA) Urine Ketones Ur Blood (Man) Urine Nitrate Urine Bilirubin Urine Urobilinogen Leukocyte Esterase Rfl Urine RBC Urine WBC Ur Squamous Epith Cells Ur Transition Epith Cell Urine Bacteria Urine Mucus Urine Yeast (Budding) SARS-CoV-2 RNA (RT-PCR) 10/03/22 10/03/22 10/03/22 14:54 12:53 12:53 WBC 11.4 H RBC 4.32 Hgb 12.2 Hct 38.1 MCV 88.2 MCH 28.2 MCHC 32.0 RDW 13.5 Plt Count 326 MPV 10.0 Immature Gran % (Auto) 0.4 Neut % (Auto) 57.9 Lymph % (Auto) 28.2 Lanier % (Auto) 7.6 Eos % (Auto) 5.5 H Baso % (Auto) 0.4 Lymph # (Auto) 3.21 H Lanier # (Auto) 0.9 H Eos # (Auto) 0.6 H Baso # (Auto) 0.0 Abs Immat Gran (auto) 0.04 H Absolute Neuts (auto) 6.6 Absolute Nucleated RBC 0.0 Nucleated RBC % 0.0 Sodium 140 Potassium 3.3 L Chloride 99 Carbon Dioxide 28 Anion Gap 13 BUN 14 Creatinine 0.60 L Estim Creat Clear Calc 80 Estimated GFR > 60 Glucose 94 Calcium 9.2 Magnesium Total Bilirubin 0.3 AST 27 ALT 21 Alkaline Phosphatase 71 Total Protein 8.0 Albumin 4.4 Urine Color Urine Appearance Urine pH Ur Specific Lincoln Urine Protein Urine Glucose (UA) Urine Ketones Ur Blood (Man) Urine Nitrate Urine Bilirubin Urine Urobilinogen Leukocyte Esterase Rfl Urine RBC Urine WBC Ur Squamous Epith Cells Ur Transition Epith Cell Urine Bacteria Urine Mucus Urine Yeast (Budding) SARS-CoV-2 RNA (RT-PCR) Negative 10/03/22 12:53 WBC RBC Hgb Hct
== END 2022-10-04 12:55 | disposition home or self-care (01) ==
LOC: ANHED 14:41 → ANH3MEDSUR 10-04 11:22
PROVIDERS: Physician Assistant; Urology; Admitting Provider Hospitalist; Emergency Provider Emergency Medicine; PCP Family Medicine; Visit Provider Chiropractor
PROC: (CPT 52352; principal; 2022-10-03 17:00)
DX: N13.2 Hydronephrosis with renal and ureteral calculous obstruction (principal); M19.90 Unspecified osteoarthritis, unspecified site; N39.0 Urinary tract infection, site not specified; G80.9 Cerebral palsy, unspecified; K21.9 Gastro-esophageal reflux disease without esophagitis; E78.5 Hyperlipidemia, unspecified; K57.30 Diverticulosis of large intestine without perforation or abscess without bleeding; F10.90 Alcohol use, unspecified, uncomplicated; Z87.442 Personal history of urinary calculi; Z20.822 Contact with and (suspected) exposure to COVID-19; Z86.718 Personal history of other venous thrombosis and embolism; Z79.82 Long term (current) use of aspirin; Z79.899 Other long term (current) drug therapy; Z82.3 Family history of stroke; Z81.8 Family history of other mental and behavioral disorders; Z82.49 Family history of ischemic heart disease and other diseases of the circulatory system
CPT/HCPCS: 52005; 52332; 36415; 74176; 74420; 80048; 80053; 81001; 81025; 83735; 84132; 85025; 87086; 87088; 96365; 96375; 99285; A9270; C1758; C1769; C1887; C2617; G0378; G0379; J0131; J0696; J2250; J2270; J2405; J2704; J3010; J7030; J7120; U0003; U0005

== ENCOUNTER 2022-10-13 09:46 | Observation (INO) | payer OTHER, SELFPAY ==
--- NOTE | ~2022-10-13 | XR_ITS ---
EXAMINATION: XR abdomen/kub 1V INDICATION: Right flank pain TECHNIQUE: Supine views of the abdomen were obtained on 2 radiographs. COMPARISON: CT from today FINDINGS: There is a 4 mm stone at the right ureteropelvic junction which causes a persistent right n ephrogram and moderate hydronephrosis. The left urinary tract and bladder are partially opacified fro m contrast from earlier CT examination. The bowel gas pattern is normal. The visualized lung bases ar e clear. IMPRESSION: 1. 4 mm obstructing stone at the right ureteropelvic junction causing persistent right nephrogram and moderate hydronephrosis. Reviewed, dictated and finalized at location F. F PHYSICIAN IMPRESSION: 1. 4 mm obstructing stone at the right ureteropelvic junction causing persisten t right nephrogram and moderate hydronephrosis.
--- NOTE | ~2022-10-13 | CT_ITS ---
EXAMINATION: CT abdomen pelvis w con DATE: 10/13/2022 13:36 INDICATION: Abdominal pain after surgery. Nausea and vomiting. TECHNIQUE: Computed tomography (CT) of the abdomen and pelvis was performed with 100 mL Omnipaque 350 intravenous contrast. Automated exposure control and iterative reconstruction technique were employe d. The dose-length product was 280.19 mGy-cm. COMPARISON: CT abdomen and pelvis 10/03/2022 FINDINGS: The visualized portions of the lung bases demonstrate mild atelectasis. No pleural effusion . The heart size is normal. No pericardial effusion. There is a small sliding hiatal hernia. The live r and spleen are normal. The gallbladder is distended. The pancreas and adrenal glands are normal. Th ere are cysts in the kidneys measuring up to 12 mm on the right. There is a delayed and decreased rig ht-sided contrast nephrogram. There is moderate right hydronephrosis. There are multiple stones in cl usters in right kidney. The largest cluster of stones measures 11 mm. There is a 5 mm stone in proxim al right ureter. There are no dilated loops of bowel. There is a moderate volume of stool in the colo n. The appendix is normal. There are no pathologically enlarged lymph nodes. There is no free intrape ritoneal fluid. There is mild lumbar spondylosis. IMPRESSION: 1. 5 mm stone in proximal right ureter with moderate right hydronephrosis. 2. Nonobstructing right kidney stones. 3. Gallbladder distention, which may be secondary to fasting. Reviewed, dictated and finalized at location A. ING MACHINE OPERATOR
--- NOTE | ~2022-10-13 | XR_ITS ---
EXAMINATION: XR retrograde pyelo w/stent RT DATE: 10/14/2022 09:42 INDICATION: Right hydronephrosis post recent lithotripsy for ureteral stent placement. TECHNIQUE: 7 fluoroscopic images of the abdomen and pelvis were obtained during procedure performed b jose angel Taylor. Radiologist was not present for the imaging or procedure. The amount of fluoroscopy t franky used during this procedure was 0.5 minutes. COMPARISON: CT dated 10/13/2022 FINDINGS: Cannulation of the right ureter and likely contrast injections demonstrates moderate right hydronephr osis. The stone fragments seen at the right ureter pelvic junction and in the calyces of the right ki dney on prior CT are unable to be distinguished from the injected contrast. Subsequent images demonst rate placement of a right internal ureteral stent with loops formed in the right renal pelvis and in the bladder. IMPRESSION: 1. Moderate right hydronephrosis with placement of a right internal ureteral stent in expected positi on. Reviewed, dictated and finalized at location B. ORT OPERATIONS OFFICER IMPRESSION: 1. Moderate right hydronephrosis with placement of a right internal ureteral st ent in expected position.
--- NOTE | 2022-10-13 10:30 | PC.NURSE ---
pt and pt visitor up to desk inquiring about wait time. it was explained to pt and pt visitor that we are unfortunately unable to give out wait times.
[2022-10-13 11:21] VITALS: BP 123/80; PULSE 99; RESP 16; TEMP 36.4; O2SAT 98
--- NOTE | 2022-10-13 11:39 | ED.NAVMDI ---
HPI - Nausea/Vomiting/Diarrhea General Chief complaint: Nausea/Vomiting/Diarrhea Stated complaint: n/v, post op yest Time Seen by Provider: 10/13/22 11:26 Source: patient and old records reviewed Mode of arrival: ambulatory Limitations: no limitations History of Present Illness HPI Narrative: Patient is a 51 y/o female, w/ Hx of cerebral palsy, who presents to the ED with c/o N/V, ABD pain. Per patient's records, right-sided kidney stone originally found on 10/03 at this hospital, she underwent ureteral stent placement by Dr. Bailey the same day. Patient underwent right ESWL with stent removal yesterday at [facility] under Dr. Lei. Patient was discharged yesterday on cefdinir and Flomax, however she reports she has been unable to keep anything down due to nausea. She also complains of diffuse abdominal pain, radiating to R flank/side. She denies any known fever. She has been able to urinate, denies dysuria, hematuria. She has not taken anything for pain. Related Data Home Medications Medication Instructions Recorded Confirmed cyclobenzaprine 10 mg tablet 10 mg PO TID PRN Muscle Pain 04/08/22 10/03/22 aspirin 81 mg tablet 81 mg PO DAILY 09/19/22 10/03/22 calcium carbonate 600 mg calcium 600 mg PO DAILY 09/19/22 10/03/22 (1,500 mg) tablet dfinztel-yya-FC 0.4 mg-calcium 162 1 tablet PO DAILY 09/19/22 10/03/22 mg-iron 18 ag-jikhnuo-qfbrej tablet sumatriptan succinate 50 mg tablet 50 mg PO PRN PRN MIGRAINE 09/20/22 10/03/22 calcium carb 300 mg-D3 800 1 tablet PO DAILY 10/03/22 10/03/22 unit-mag ox 25 mg-endoscopy registered nurse 0.5 mg-jorge-Zn tablet (Caltrate + D3 Plus Minerals) ljjcqnlt-ntiscccm-hlzk 8 mg-folic 1 tablet PO DAILY 10/03/22 10/03/22 ac 400 mcg-vit K 10 mcg chew tablet (Centrum Chewables) Allergies Allergy/AdvReac Type Severity Reaction Status Date / Time NSAIDS (Non-Steroidal Allergy Severe SWELLING Verified 10/03/22 13:05 Anti-Inflamma IN LEGS venom-honey bee Allergy Swelling Verified 10/03/22 13:05 venom-wasp Allergy Swelling Verified 10/03/22 13:05 Cat Dander Allergy Severe chest Uncoded 10/03/22 13:05 congestion Molds and Smuts Allergy Severe chest Uncoded 10/03/22 13:05 congestion Review of Systems Review of Systems: CONSTITUTIONAL: Denies fever, chills, or sweats. GASTROINTESTINAL: Reports abdominal pain, nausea, vomiting. Denies diarrhea. GENITOURINARY: Denies dysuria or hematuria. MUSCULOSKELETAL: Denies back pain, joint pain, or myalgia. All systems reviewed & are unremarkable except as noted in HPI and below PMFSH Past Medical History Medical History Arthritis Cerebral palsy Cervical cancer DVT (deep vein thrombosis) in Environmental allergies GERD without esophagitis Hyperlipidemia Migraine headache Patellar tendonitis Renal calculus Seizure Stomach ulcer Wears glasses Surgical History Surgical History H/O LEEP History of cystoscopy History of lithotripsy (~03/2022) History of lithotripsy [place] teeth extracted (~1995) Family History Family History Grandparent Cerebrovascular accident Family history of heart disease in male family member before age 55 Mother Cerebrovascular accident Father Alzheimer disease Social History Social History Social History: Surrogate medical decision maker: Renan Pierre, significant other. Code status: Full code. Smoking status: Never smoker Second hand tobacco smoke exposure: No Alcohol intake: current Drinks per week: 1 Alcohol use details: PT STATES WAS ABOUT 1 DRINK A WEEK - STATES LAST DRINK WAS 04/18/22 AND IS QUITING DRINKING FOR GOOD Substance use: never Substance use type: does not use Lack of Transportation: No Lack of Food: Never True
[2022-10-13 12:14] LABS: Alanine Aminotransferase 61 U/L (6-35); Albumin Level 4.5 g/dL (3.5-5.1); Alkaline Phosphatase 127 U/L (38-126); Anion Gap 13 mmol/L (8-16); Aspartate Amino Transferase 57 U/L (14-36); Bilirubin,Total 0.4 mg/dL (0.2-1.3); Blood Urea Nitrogen 13 mg/dL (7-17); Calcium 8.9 mg/dL (8.4-10.2); Carbon Dioxide 29 mmol/L (22-30); Chloride 97 mmol/L (98-107); Estimated CRCL calculation 55 ml/min; Estimated Glomerular Filt Rate > 60; Glucose 105 mg/dL (65-110); Lipase 35 U/L (23-300); Potassium 3.8 mmol/L (3.4-5.0); Sodium 139 mmol/L (137-145)
[2022-10-13 12:15] LABS: Basophils Absolute Auto 0.1 K/mm3 (0.0-0.1); Basophils Percent Auto 0.5 % (0.2-1.2); Eosinophils Absolute Auto 0.3 K/mm3 (0-0.3); Eosinophils Percent Auto 2.1 % (0-4.4); Hematocrit 40.1 % (37.0-47.0); Hemoglobin 12.8 g/dL (12.0-15.0); Immature Granulocyte Absolute 0.05 K/mm3 (0.00-0.031); Immature Granulocyte Percent A 0.4 % (0-0.5); Lymphocytes Absolute Auto 1.84 K/mm3 (0.9-3.2); Lymphocytes Percent Auto 13.5 % (18.3-44.2); Mean Corpuscular HGB Conc 31.9 g/dl (32-36); Mean Corpuscular Hemoglobin 27.8 pg (26-34); Mean Platelet Volume 10.3 fl (7.4-10.4); Monocytes Absolute Auto 1.3 K/mm3 (0.1-0.6); Monocytes Percent Auto 9.7 % (2.6-8.5); Neutrophils Absolute Auto 10.1 K/mm3 (1.3-6.7); Neutrophils Percent Auto 73.8 % (45.5-73.1); Platelet Count Result 381 k/mm3 (150-375); Red Blood Count 4.61 M/mm3 (4.2-5.4); Red Cell Distribution Width 13.5 % (11.5-14.5); White Blood Count 13.7 K/mm3 (4.5-10.0)
[2022-10-13] MEDS: ONDANSETRON INJ 4 MG/2 ML VIAL IV PUSH (12:26)
[2022-10-13] MEDS: SODIUM CHLORIDE 0.9% IV 1,000 ML 999 ML IV CONT ×2 (12:26→15:27)
[2022-10-13] MEDS: MORPHINE SULFATE (*CRX) 4 MG/ML INJ IV PUSH ×2 (12:27→15:27)
[2022-10-13 12:54] LABS: Appearance Urine Clear (Clear); Bilirubin Urine Negative (Negative); Blood Urine 3+ (Negative); Color Urine Yellow (Yellow); Glucose Urine UA Negative (Negative); Ketones Urine 2+ mg/dL (Negative); Leukocyte Esterase Ur 2+ LEU/UL (Negative); Nitrate Urine Negative (Negative); Protein Urine 1+ mg/dL (Negative); Specific Grav Ur 1.015 (1.001-1.035); Urobilinogen Urine 0.2 mg/dL (<2.0); pH Urine 8.5 (5.0-9.0)
[2022-10-13 13:14] LABS: Budding Yeast Urine Present /hpf; Mucus Urine Rare /lpf; RBC Urine 21-50 /hpf (0-2); Squamous Epithelial Cell Urine Many /hpf (Few); Transitional Epi Cells Urine Rare /hpf (None Seen); WBC Urine 51-75 /hpf
[2022-10-13 13:26] LABS: Add Urine Microscopic? YES
[2022-10-13 15:30] VITALS: BP 124/90; PULSE 95; RESP 16
--- NOTE | 2022-10-13 16:12 | WPDURCON ---
Assessment and Plan Assessment and plan (1) Calculus of proximal right ureter: Code(s): N20.1 - Calculus of ureter Status: Acute Assessment and Plan: Plan to go to the OR tomorrow with Dr. Taylor. Obtain Consent: Cystoscopy, right ureteroscopy with stent placement, right retrograde pyelogram. Keep NPO after midnight tonight. (2) UTI (urinary tract infection): Qualifiers: Hematuria presence: with hematuria Urinary tract infection type: acute cystitis Qualified Code(s): N30.01 - Acute cystitis with hematuria Code(s): N39.0 - Urinary tract infection, site not specified Status: Acute Assessment and Plan: Continue IV antibiotics, tailor to culture sensitivity report. Urology Consult Note HPI Date Seen: 10/13/22 Time Seen: 17:00 Primary Care Provider: Ayaz Jimenez MD Consult Narrative Reason for consult: Right Distal Ureteral Stone Narrative: Esther Duarte is a 51 year old female who presented to the ER today for acute onset of right flank pain that radiates to the RLQ accompanied by nausea and vomiting. She initially was seen in the ER here on 10/03/22 and diagnosed with a right ureteral stone and had a stent placed by Dr. Bailey. She then followed up with Dr. Lei at [facility] and had a Cystoscopy, stent removal with ESWL yesterday 10/12/[address] Lei. Her WBC is 13.7 today, creatinine 0.90, she is afebrile, but urine appears to be possibly infected. She was discharged home yesterday with Tamsulosin and Cefdinir. Urine cultures have been sent today. Her CT scan today shows a 5mm stone in the proximal right ureter with moderate hydronephrosis and her KUB shows the stone as well. She is having pain that is not well controlled with pain medications. Review of Systems Cardiovascular: Cardiovascular: Denies chest pain Respiratory: Respiratory: Reports no additional respiratory complaints Gastrointestinal: Gastrointestinal: Reports abdominal pain, Reports nausea and Reports vomiting Genitourinary: Genitourinary: Denies hematuria, Denies dysuria, Denies pelvic pain, Reports flank pain, Denies urinary incontinence, Denies urinary hesitancy and Denies urinary urgency PMFSH Past Medical History Medical History Arthritis Cerebral palsy Cervical cancer DVT (deep vein thrombosis) in Environmental allergies GERD without esophagitis Hyperlipidemia Migraine headache Patellar tendonitis Renal calculus Seizure Stomach ulcer Wears glasses Surgical History Surgical History H/O LEEP History of cystoscopy History of lithotripsy (~03/2022) History of lithotripsy [place] teeth extracted (~1995) Family History Family History Grandparent Cerebrovascular accident Family history of heart disease in male family member before age 55 Mother Cerebrovascular accident Father Alzheimer disease Social History Social History Social History: Surrogate medical decision maker: Renan Pierre, significant other. Code status: Full code. Smoking status: Never smoker Second hand tobacco smoke exposure: No Alcohol intake: current Drinks per week: 1 Alcohol use details: PT STATES WAS ABOUT 1 DRINK A WEEK - STATES LAST DRINK WAS 04/18/22 AND IS QUITING DRINKING FOR GOOD Substance use: never Substance use type: does not use Lack of Transportation: No Lack of Food: Never True Current Housing: I Have Housing Concerned About Future Housing: No Difficulty Paying Gas/Electric Bills: No Difficulty Paying for Meds: No Currently Unemployed: No Education: Associate Degree Difficulty w/ Childcare or Family Care: No Additional living arrangements comments: PT LIVES WITH SIGNIFICANT OTHER Additional occupation/educat
[2022-10-13] MEDS: HYDROmorphone HCL INJ (*CRX) 1 MG/ML SYR IV PUSH (16:33)
--- NOTE | 2022-10-13 16:45 | PM.IMHP ---
H&P: HPI History of Present Illness Date/Time: 10/13/22 16:45 Chief Complaint: Nausea, vomiting, and abdominal pain. Narrative: This is a 51-year-old female with history of kidney stones status post cystoscopy with ureteral stent placement (10/03/2022) with subsequent stent removal and lithotripsy done yesterday at [facility] to per Dr. Lei who presented to the emergency department for evaluation of nausea, vomiting, and abdominal pain. She was feeling okay when she got home from her procedure yesterday however last evening she started to have chills and nausea with multiple bouts of emesis overnight. This morning she had increasing colicky pain in the right flank and she came back to the ER for evaluation. CT today shows a 5 millimeters stone proximal right ureter with moderate hydronephrosis and she is being admitted in this setting for supportive care and urology consultation. She is feeling a bit better after receiving antiemetics and her pain is also improving. Review of Systems Review of Systems: Twelve systems were reviewed. She has had some mild dysuria but no hematuria. No documented fever. No cold or flu symptoms. No chest pain or shortness of breath. She has been passing gas or reports not having a bowel movement for several days. Except as documented, all other systems were reviewed and are negative. [facility] Past Medical History Medical History Arthritis Cerebral palsy Cervical cancer DVT (deep vein thrombosis) in Environmental allergies GERD without esophagitis Hyperlipidemia Migraine headache Patellar tendonitis Renal calculus Seizure Stomach ulcer Wears glasses Surgical History Surgical History H/O LEEP History of cystoscopy History of lithotripsy (~03/2022) History of lithotripsy [place] teeth extracted (~1995) Family History Family History Grandparent Cerebrovascular accident Family history of heart disease in male family member before age 55 Mother Cerebrovascular accident Father Alzheimer disease Social History Social History Social History: Surrogate medical decision maker: Renan Pierre, significant other. Code status: Full code. Smoking status: Never smoker Second hand tobacco smoke exposure: No Alcohol intake: never Drinks per week: 1 Alcohol use details: PT STATES WAS ABOUT 1 DRINK A WEEK - STATES LAST DRINK WAS 04/18/22 AND IS QUITING DRINKING FOR GOOD Substance use: never Substance use type: does not use Lack of Transportation: No Lack of Food: Never True Current Housing: I Have Housing Concerned About Future Housing: No Difficulty Paying Gas/Electric Bills: No Difficulty Paying for Meds: No Currently Unemployed: No Education: Decline to Answer Difficulty w/ Childcare or Family Care: No Additional living arrangements comments: PT LIVES WITH SIGNIFICANT OTHER Additional occupation/education comments: Disabled Gender identity (if verbalized by the patient): Female Spiritual care concerns: No Meds Home Medications and Allergies Home Medications Medication Instructions Recorded Confirmed Type cyclobenzaprine 10 mg tablet 10 mg PO TID PRN Muscle Pain 04/08/22 10/13/22 History cetirizine 10 mg tablet (Allergy 10 mg PO DAILY PRN Congestion #90 09/01/22 10/13/22 Rx Relief (cetirizine)) tabs aspirin 81 mg tablet 81 mg PO DAILY 09/19/22 10/13/22 History sumatriptan succinate 50 mg tablet 50 mg PO PRN PRN MIGRAINE 09/20/22 10/13/22 History calcium carb 300 mg-D3 800 1 tablet PO DAILY 10/03/22 10/13/22 History unit-mag ox 25 mg-cops 0.5 mg-jorge-Zn tablet (Caltrate + D3 Plus Minerals) cefdinir 300 mg capsule 300 mg PO Q12H 14 days #28 caps 10/04/22 10/13/22 Rx freddy Morgan
[2022-10-13 17:36] VITALS: BP 116/83; RESP 16
[2022-10-13 18:28] VITALS: BMI 25.0
[2022-10-13 18:30] VITALS: BP 119/70; PULSE 92; RESP 16; TEMP 36.4; O2SAT 98
--- NOTE | 2022-10-13 18:34 | ADMGEN ---
This patient, Esther Duarte, was admitted to 2 Medical Room 258-. Patient/family oriented to hospital policies and general routines including ID bracelet, bed and alarms, visiting hours, pain management, procedures, bathroom and other care routines, personal items, smoking policy, room service/diet, and visiting hours. Information on how to activate the Rapid Response Team has been discussed. Patient/Family are encouraged to report perceived risks to care and to ask questions if they do not understand what they are told or what they should do.
[2022-10-13 18:44] VITALS: BP 119/70; PULSE 92; TEMP 36.4
[2022-10-13 21:10] LABS: Lactic Acid Reflex 0.6 mmol/L (0.7-2.0)
[2022-10-13 21:32] VITALS: BP 119/70; PULSE 86; RESP 16; TEMP 36.4; O2SAT 98
[2022-10-13] MEDS: HYDROcodone/acetaminophen (*CRX) 5-325 MG TABLET 1 TAB PO (23:28)
[2022-10-13] MEDS: SODIUM CHLORIDE 0.9% IV 1,000 ML 100 ML IV CONT (23:37)
[2022-10-14] VITALS (10 sets, daily range): BP systolic 120–139; BP diastolic 71–84; PULSE 83–102; RESP 13–20; TEMP 36.3–37.2; O2SAT 96–100
[2022-10-14 05:10] LABS: Hematocrit 35.4 % (37.0-47.0); Hemoglobin 11.3 g/dL (12.0-15.0); Mean Corpuscular HGB Conc 31.9 g/dl (32-36); Mean Corpuscular Hemoglobin 27.9 pg (26-34); Mean Corpuscular Volume 87.4 fl (80-100); Mean Platelet Volume 10.1 fl (7.4-10.4); Platelet Count Result 331 k/mm3 (150-375); Red Blood Count 4.05 M/mm3 (4.2-5.4); Red Cell Distribution Width 13.4 % (11.5-14.5)
[2022-10-14 06:08] LABS: Anion Gap 13 mmol/L (8-16); Blood Urea Nitrogen 10 mg/dL (7-17); Calcium 8.5 mg/dL (8.4-10.2); Carbon Dioxide 25 mmol/L (22-30); Chloride 102 mmol/L (98-107); Estimated CRCL calculation 61 ml/min; Estimated Glomerular Filt Rate > 60; Glucose 92 mg/dL (65-110); Potassium 3.8 mmol/L (3.4-5.0); Sodium 140 mmol/L (137-145)
[2022-10-14 06:37] LABS: Hepatitis B Surface Antigen Negative (Negative)
[2022-10-14 06:42] LABS: Pregnancy On Board Control Positive; Urine Pregnancy Test Negative
[2022-10-14 06:42] LABS: HAV RESULT Negative (Negative); Hepatitis B Core IgM Result Negative (Negative)
[2022-10-14] MEDS: HYDROcodone/acetaminophen (*CRX) 5-325 MG TABLET 1 TAB PO (06:49)
[2022-10-14 06:54] LABS: Hepatitis C Virus Antibody Negative (Negative)
--- NOTE | 2022-10-14 07:30 | WPDANESEPPF ---
Anes - Initial Pre Proc Eval Procedure: Operation Date: 10/14/22 09:00 Proposed Procedures p Cystoscopy,Right Retrograde Pyelogram,Right Stent Placement - Aydin Taylor MD Date/Time: 10/14/22 07:30 Surgeon: Fernanda Jackson PA-C Pre Op Diagnosis: R Proximal Ureteral Stone,UTI,N/V Patient Data Age: 51 Gender: F Height: 1.6 m Weight: 65.7 kg Last Vital Signs Temp 36.4 C 10/14/22 06:18 Pulse 94 10/14/22 06:18 Resp 16 10/14/22 06:18 BP 128/71 10/14/22 06:18 Pulse Ox 100 10/14/22 06:18 O2 Del Method Room Air 10/13/22 11:21 Allergies Allergy/AdvReac Type Severity Reaction Status Date / Time NSAIDS (Non-Steroidal Allergy Severe SWELLING Verified 10/13/22 18:35 Anti-Inflamma IN LEGS venom-honey bee Allergy Swelling Verified 10/13/22 18:35 venom-wasp Allergy Swelling Verified 10/13/22 18:35 Cat Dander Allergy Severe chest Uncoded 10/03/22 13:05 congestion Molds and Smuts Allergy Severe chest Uncoded 10/03/22 13:05 congestion Home Medications Medication Instructions Recorded Confirmed Type cyclobenzaprine 10 mg tablet 10 mg PO TID PRN Muscle Pain 04/08/22 10/13/22 History cetirizine 10 mg tablet (Allergy 10 mg PO DAILY PRN Congestion #90 09/01/22 10/13/22 Rx Relief (cetirizine)) tabs aspirin 81 mg tablet 81 mg PO DAILY 09/19/22 10/13/22 History sumatriptan succinate 50 mg tablet 50 mg PO PRN PRN MIGRAINE 09/20/22 10/13/22 History calcium carb 300 mg-D3 800 1 tablet PO DAILY 10/03/22 10/13/22 History unit-mag ox 25 mg-copier repair technician 0.5 mg-jorge-Zn tablet (Caltrate + D3 Plus Minerals) cefdinir 300 mg capsule 300 mg PO Q12H 14 days #28 caps 10/04/22 10/13/22 Rx L.acidop,casei,lactis,rham-B.lact,clem 1 cap PO DAILY 10/13/22 10/13/22 History 625 mg (10 billion cell) capsule (Advanced Probiotic) hydrocodone 5 mg-acetaminophen 325 1 tablet PO Q6H PRN Pain 10/13/22 10/13/22 History mg tablet oxybutynin chloride 5 mg tablet 5 mg PO BID PRN Bladder Spasms 10/13/22 10/13/22 History simethicone 125 mg capsule (Gas-X 125 mg PO PRN PRN Gas 10/13/22 10/13/22 History Extra Strength) tamsulosin 0.4 mg capsule 0.4 mg PO DAILY 10/13/22 10/13/22 History Laboratory Tests 10/13/22 10/13/22 10/13/22 11:57 11:57 12:42 WBC 13.7 K/mm3 H K/mm3 (4.5-10.0) RBC 4.61 M/mm3 M/mm3 (4.2-5.4) Hgb 12.8 g/dL g/dL (12.0-15.0) Hct 40.1 % % (37.0-47.0) MCV 87.0 fl fl (80-100) MCH 27.8 pg pg (26-34) MCHC 31.9 g/dl L g/dl (32-36) RDW 13.5 % % (11.5-14.5) Plt Count 381 k/mm3 H k/mm3 (150-375) MPV 10.3 fl fl (7.4-10.4) Immature Gran % (Auto) 0.4 % % (0-0.5) Neut % (Auto) 73.8 % H % (45.5-73.1) Lymph % (Auto) 13.5 % L % (18.3-44.2) [place] % (Auto) 9.7 % H % (2.6-8.5) Eos % (Auto) 2.1 % % (0-4.4) Baso % (Auto) 0.5 % % (0.2-1.2) Lymph # (Auto) 1.84 K/mm3 K/mm3 (0.9-3.2) [place] # (Auto) 1.3 K/mm3 H K/mm3 (0.1-0.6) Eos # (Auto) 0.3 K/mm3 K/mm3 (0-0.3) Baso # (Auto) 0.1 K/mm3 K/mm3 (0.0-0.1) Abs Immat Gran (auto) 0.05 K/mm3 H K/mm3 (0.00-0.031) Absolute Neuts (auto) 10.1 K/mm3 H K/mm3 (1.3-6.7) Absolute Nucleated RBC 0.0 K/mm3 K/mm3 (0.0-0.012) Nucleated RBC % 0.0 % % (0.0-0.2) Sodium 139 mmol/L mmol/L (137-145) Potassium 3.8 mmol/L mmol/L (3.4-5.0) Chloride 97 mmol/L L mmol/L (98-107) Carbon Dioxide 29 mmol/L mmol/L (22-30) Anion Gap 13 mmol/L mmol/L (8-16) BUN 13 mg/dL D mg/dL (7-17) Creatinine 0.90 mg/dL mg/dL (0.7-1.0) Estim Creat Clear Calc 55 ml/min ml/min Estimated GFR > 60 (59 - ) Glucose 105 mg/dL mg/dL (65-110) Lactic Acid Calcium 8.9 mg/dL mg/dL (8.4-10.2)
[2022-10-14 07:33] LABS: Alanine Aminotransferase 72 U/L (6-35); Albumin Level 3.6 g/dL (3.5-5.1); Alkaline Phosphatase 121 U/L (38-126); Aspartate Amino Transferase 60 U/L (14-36); Bilirubin,Total 0.5 mg/dL (0.2-1.3)
--- NOTE | 2022-10-14 07:42 | PM.IMPN ---
Progress Note: A&P Assessment and Plan (1) Calculus of proximal right ureter: Code(s): N20.1 - Calculus of ureter Status: Acute Assessment and Plan: Presented with complaints of nausea, vomiting, abdominal pain following right ureteral stent removal with lithotripsy on 10/12 CT and abdominal x-ray showed obstructing stone at right UPJ resulting in moderate hydronephrosis Planning for cystoscopy with right retrograde pyelogram and right stent placement this morning Supportive care. Analgesics available as needed Appreciate urology consultation (2) Hydroureteronephrosis: Code(s): N13.30 - Unspecified hydronephrosis Status: Acute Assessment and Plan: Please see above (3) Abnormal urinalysis: Code(s): R82.90 - Unspecified abnormal findings in urine Status: Acute Assessment and Plan: Urinalysis was abnormal on presentation, however with many squamous cells noted Continue IV ceftriaxone while awaiting urine culture results Continue with gentle IV fluids while NPO Mild leukocytosis noted. Patient afebrile. (4) Elevated LFTs: Code(s): R79.89 - Other specified abnormal findings of blood chemistry Status: Acute Assessment and Plan: AST and ALT are mildly elevated with normal total bilirubin alk-phos Suspect secondary to infection Continue to trend LFTs Subjective Date/time seen: 10/14/22 07:42 Interval history: Date of service: 10/14/2022 Esther Duarte is a 51-year-old female with a history cerebral palsy, cervical cancer, GERD, seizures, and multiple prior kidney stones s/p cystoscopy with ureteral stent placement on 10/03/2022 with subsequent stent removal and lithotripsy on 10/12 who is seen in follow-up for right UPJ stone. Patient is seen prior to surgery. She is scheduled for cystoscopy with right retrograde pyelogram and right ureteral stent placement later this morning. She states that her pain is improved today after receiving pain medication. Currently rates her discomfort as 2/10. Pain is mostly concentrated in the left mid abdomen and some in the left flank, although stone is noted to be in the right UPJ. Patient states her right-side is not bothersome. Denies back pain or suprapubic discomfort. She has been able to urinate without difficulty and denies dysuria or hematuria. She denies nausea or vomiting. Endorses a mild headache. No shortness of breath or chest pain. She states she wishes these kidney stones would stop bothering her. Review of Systems Review of Systems: All systems reviewed & are unremarkable except as noted in HPI and below Exam Narrative: General: Well-nourished, well-appearing 51-year-old female, supine on stretcher, comfortable, NARD Neuro: awake, alert and oriented x4, speech clear, no focal neuro deficits noted HEENMT: normocephalic, atraumatic, EOMI, sclerae anicteric, moist oral mucosa Respiratory: clear to auscultation bilaterally, nonlabored breathing Cardio: regular rate, regular rhythm with S1-S2 Abdomen: nondistended, normoactive bowel sounds, soft, tender to palpation throughout left side of abdomen and flank : No CVA tenderness Extremities: no edema, erythema, or tenderness to palpation Skin: no rashes or lesions, warm and dry Psych: appropriate mood and affect, judgment and insight intact Objective Data Vital Signs Vital Signs: Vital Signs - 24 hr 10/13/22 11:21 10/13/22 15:30 10/13/22 17:36 Temperature 97.6 F Pulse Rate 99 95 Respiratory Rate 16 16 16 Blood Pressure 123/80 124/90 116/83 Pulse Oximetry 98 Oxygen Delivery Room Air 10/13/22 18:30 10/13/22 21:32 10/14/22 06:18 Temperature 97.6 F 97.6 F 97.6 F Pulse Rate 92 86 94 Respiratory Rate 16 16 16 Blood Pressure 119/70 119/70 128/71 Pulse Oximetry 98 98 100 Oxygen Delivery 10/13/22 18:44 Temperature Pulse Rate 92 Respiratory Rate Blood Pressure 119/70 Pulse Oximetry Oxygen
--- NOTE | 2022-10-14 07:54 | WPDHPUPDATE1 ---
History and Physical Update Update Date/Time: 10/14/22 07:54 History and Physical has been reviewed, including an updated exam of the patient. There are NO changes in the patient's condition. Risks, benefits, and alternatives have been discussed and questions answered. Patient agrees to proceed with procedure. Proceed with cysto, right retrograde, right stent , possible ureteroscopy with laser, stone extraction.
[2022-10-14] MEDS: LACTATED RINGERS 1,000 ML 30 ML IV CONT ×2 (08:00→10:29)
--- NOTE | 2022-10-14 09:36 | P.OP_ITS ---
Procedure Note - Detailed Date of Procedure 10/14/22 Pre-op Diagnosis R Proximal Ureteral Stone,UTI,N/V Post-op Diagnosis Same Procedure Performed Cysto, right retrograde pyelogram, right ureteroscopy with holmium laser of ureteral and renal calculi, right ureteral stent placement 4.8 Marshallese contour stent Surgeon Aydin Taylor MD Anesthesia General Description of Procedure Patient is taken the operative suite correctly identified. Once anesthesia was obtained she was placed in dorsal lithotomy position and prepped draped usual sterile fashion. Twenty-two Marshallese scope inserted the bladder. There was no tumors noted. The right ureteral orifice was cannulated with a guidewire. The efflux was clear at this time. We thus manipulated a mini flexible ureteral scope up into the kidney. The proximal ureteral stone had been pushed back into the kidney with a guidewire. Using a 272 micron fiber we fragmented the stone as well as did a popcorn dusting of the remaining stones in the mid and lower pole calices. The appeared to be fragmented very well. At this point a pyelogram was performed. 4.8 Marshallese contour stent was then placed with the proximal end coiled in the renal pelvis and the distal end in the bladder. Bladder was drained. 2% viscous lidocaine was inserted urethra patient is taken recovery stable condition. She will follow-up in approximately 1-2 weeks with a KUB for possible stent removal at that time. Please send a copy of this to Dr. Taylor is office Estimated Blood Loss 0 Urine Output 600 Drains Yes Packing No Pathology None sent Complications No immediate complications Condition Stable Disposition PACU
[2022-10-14] MEDS: LIDOCAINE HCL 2% GEL UROJET 10 ML PKG MUCOUS MEM (09:37)
--- NOTE | 2022-10-14 10:23 | SUR.PHASEI ---
1022: Simple mask removed.
[2022-10-14] MEDS: fentaNYL CITRATE INJ (*CRX) 100 MCG/2 ML VIAL 25 MCG IV PUSH ×2 (10:35→10:38)
[2022-10-14] MEDS: TAMSULOSIN HCL 0.4 MG CAPSULE PO (11:34)
[2022-10-14] MEDS: ACIDOPHILUS/BULGARICUS CHEWABLE TABLET 1 TABLET PO (11:34)
[2022-10-14] MEDS: CYCLOBENZAPRINE HCL 10 MG TABLET PO ×2 (11:44→16:06)
[2022-10-14] MEDS: ONDANSETRON INJ 4 MG/2 ML VIAL IV PUSH (12:14)
--- NOTE | 2022-10-14 15:11 | PC.NURSE ---
On 10/14/22, the student, [Tiarra Denney], provided care and completed [facility] documentation on this patient. I have reviewed the student's documentation and agree with the findings.
--- NOTE | 2022-10-14 16:06 | PM.DS ---
DS: Admitting Diagnosis Discharge Date 10/14/2022 Admitting Diagnosis Ureteral stone DS: Discharge Diagnosis Discharge Diagnosis (1) Calculus of proximal right ureter: Code(s): N20.1 - Calculus of ureter Status: Acute Assessment and Plan: Presented with complaints of nausea, vomiting, abdominal pain following right ureteral stent removal with lithotripsy on 10/12 CT and abdominal x-ray showed obstructing stone at right UPJ resulting in moderate hydronephrosis Underwent cystoscopy with right retrograde pyelogram, right ureteroscopy with holmium laser of ureteral and renal calculi and right ureteral stent placement. Tolerated procedure well Continue p.o. cefdinir which was prescribed following her intervention on 10/12 Follow-up KUB in 1-2 weeks with outpatient urology follow-up to consider stent removal at that time Supportive care provided (2) Hydroureteronephrosis: Code(s): N13.30 - Unspecified hydronephrosis Status: Acute Assessment and Plan: Please see above (3) Abnormal urinalysis: Code(s): R82.90 - Unspecified abnormal findings in urine Status: Acute Assessment and Plan: Urinalysis was abnormal on presentation, however with many squamous cells noted Received IV ceftriaxone during admission while awaiting urine culture results Continue with p.o. cefdinir as described above Will follow-up with urology for results of urine culture which are pending at time of discharge Mild leukocytosis noted which may have been reactive secondary to procedure. Patient afebrile. (4) Elevated LFTs: Code(s): R79.89 - Other specified abnormal findings of blood chemistry Status: Acute Assessment and Plan: AST and ALT are mildly elevated with normal total bilirubin and alk-phos Likely secondary to infection Outpatient follow-up with PCP to ensure resolution DS: Summary Hospital Course Hospital Course: Date of admission: 10/13/2022 Date of discharge: 10/14/2022 Esther Duarte is a 51-year-old female with a history cerebral palsy, cervical cancer, GERD, seizures, and multiple prior kidney stones s/p cystoscopy with ureteral stent placement on 10/03/2022 with subsequent stent removal and lithotripsy on 10/12 who presented to the emergency department on 10/13/2022 with complaints of diffuse abdominal pain radiating to the right flank. On presentation to the ED, her vital signs were stable, she was afebrile, WBC 13.7, AST and ALT slightly elevated with additional laboratory workup unremarkable, UA was abnormal, and CT of abdomen/pelvis showed 5 mm stone in the proximal right ureter with moderate right hydronephrosis. She was admitted to the hospitalist service for further evaluation management was seen in consultation by Urology. Please see above for further details. Right stent was placed and patient will follow-up with urology in 1-2 weeks after obtaining an outpatient KUB. Patient educated regarding worrisome signs and symptoms for which to return she was discharged in hemodynamically stable condition on 10/14/2022 Time Spent with Patient Time attestation: Total time spent providing and/or coordinating discharge services: 45 minutes Time spent: Greater than 30 minutes Exam Narrative: General: Well-nourished, well-appearing 51-year-old female, supine on stretcher, comfortable, NARD Neuro: awake, alert and oriented x4, speech clear, no focal neuro deficits noted HEENMT: normocephalic, atraumatic, EOMI, sclerae anicteric, moist oral mucosa Respiratory: clear to auscultation bilaterally, nonlabored breathing Cardio: regular rate, regular rhythm with S1-S2 Abdomen: nondistended, normoactive bowel sounds, soft, tender to palpation throughout left side of abdomen and flank : No CVA tenderness Extremities: no edema, erythema, or tenderness to palpation Skin: no rashes or lesions, warm and dry Psych: appropriate mood and affect, judgment and in
== END 2022-10-14 16:30 | disposition home or self-care (01) ==
LOC: ANHED 16:02 → ANH2MED 18:21
PROVIDERS: Physician Assistant; Urology; Admitting Provider Student in an Organized Health Care Education/Training Program; Emergency Provider Emergency Medicine; PCP Family Medicine; Visit Provider Physician Assistant
PROC: (CPT 52352; principal; 2022-10-14 09:00)
DX: N13.2 Hydronephrosis with renal and ureteral calculous obstruction (principal); R82.90 Unspecified abnormal findings in urine; R79.89 Other specified abnormal findings of blood chemistry; R11.2 Nausea with vomiting, unspecified; G80.9 Cerebral palsy, unspecified; E78.5 Hyperlipidemia, unspecified; K21.9 Gastro-esophageal reflux disease without esophagitis; Z85.41 Personal history of malignant neoplasm of cervix uteri; Z86.718 Personal history of other venous thrombosis and embolism; Z79.82 Long term (current) use of aspirin
CPT/HCPCS: 52356; 36415; 74018; 74177; 74420; 80048; 80053; 80074; 80076; 81001; 81025; 83605; 83690; 85025; 85027; 87086; 96361; 96365; 96375; 96376; 99285; A9270; C1769; C1894; C2617; G0378; G0379; J0696; J1100; J1170; J2250; J2270; J2405; J2704; J3010; J7030; J7120; Q9967

== ENCOUNTER 2022-10-16 20:21 | Inpatient (IN) | payer OTHER, SELFPAY ==
[2022-10-16] VITALS (11 sets, daily range): BP systolic 101–146; BP diastolic 60–94; PULSE 95–110; RESP 16–24; TEMP 36.7–37.7; O2SAT 98
--- NOTE | ~2022-10-16 | XR_ITS ---
EXAMINATION: XR abdomen/kub 1V INDICATION: Internal ureteral stent position assessment TECHNIQUE: Supine views of the abdomen were obtained on 2 radiographs. COMPARISON: 10/13/2022 FINDINGS: A right internal ureteral stent is in expected position. There is a 5 mm stone adjacent to the proximal stent projecting between the right L2 and L3 transverse processes. No additional urolith iasis is identified. A moderate volume of colonic stool is present. The lung bases are clear. IMPRESSION: 1. Right internal ureteral stent in expected position. 4 mm stone adjacent to the proximal stent. Reviewed, dictated and finalized at location F. L BUSINESS REPRESENTATIVE IMPRESSION: 1. Right internal ureteral stent in expected position. 4 mm stone adjacent to t he proximal stent.
--- NOTE | ~2022-10-16 | XR_ITS ---
EXAM: XR abdomen/kub 1V DATE: 10/18/2022 10:00 HISTORY: abdominal pain . COMPARISON: None available. FINDINGS: Right nephroureteral stent, in good position. Clear lung bases. Normal bowel gas pattern. Dilated gallbladder. The right renal pelvis stone is less well visualized but stable in position. Reg ional bones and soft tissues normal for age. IMPRESSION: Stable right nephrolithiasis. Gallbladder hydrops. No radiographic evidence of ileus or o bstruction. Reviewed, dictated and finalized at location K. E BREEDER IMPRESSION: Stable right nephrolithiasis. Gallbladder hydrops. No radiographic evidence of ileus or obstruction.
--- NOTE | ~2022-10-16 | XR_ITS ---
EXAMINATION: XR abdomen/kub 1V DATE: 10/19/2022 11:11 INDICATION: Left flank pain. TECHNIQUE: A supine view of the abdomen on 2 radiographs was obtained. COMPARISON: CT abdomen and pelvis 10/13/2022 FINDINGS: There are no dilated loops of bowel. There is a right internal ureteral stent in expected p osition. There are clusters of stones in the right kidney. IMPRESSION: 1. Right kidney stones. 2. Right internal ureteral stent in expected position. Reviewed, dictated and finalized at location A. LER
[2022-10-16 20:53] LABS: Basophils Absolute Auto 0.1 K/mm3 (0.0-0.1); Basophils Percent Auto 0.3 % (0.2-1.2); Eosinophils Absolute Auto 0.7 K/mm3 (0-0.3); Eosinophils Percent Auto 4.1 % (0-4.4); Hematocrit 37.1 % (37.0-47.0); Hemoglobin 11.9 g/dL (12.0-15.0); Immature Granulocyte Percent A 0.6 % (0-0.5); Lymphocytes Absolute Auto 2.17 K/mm3 (0.9-3.2); Lymphocytes Percent Auto 12.1 % (18.3-44.2); Mean Corpuscular HGB Conc 32.1 g/dl (32-36); Mean Corpuscular Hemoglobin 28.1 pg (26-34); Mean Corpuscular Volume 87.5 fl (80-100); Mean Platelet Volume 10.2 fl (7.4-10.4); Neutrophils Absolute Auto 12.9 K/mm3 (1.3-6.7); Neutrophils Percent Auto 71.9 % (45.5-73.1); Platelet Count Result 343 k/mm3 (150-375); Red Blood Count 4.24 M/mm3 (4.2-5.4); Red Cell Distribution Width 13.4 % (11.5-14.5); White Blood Count 17.9 K/mm3 (4.5-10.0)
[2022-10-16] MEDS: MORPHINE SULFATE (*CRX) 4 MG/ML INJ IV PUSH ×2 (20:53→22:49)
[2022-10-16] MEDS: ONDANSETRON INJ 4 MG/2 ML VIAL IV PUSH (20:53)
[2022-10-16] MEDS: SODIUM CHLORIDE 0.9% IV 1,000 ML 999 ML IV CONT (20:53)
[2022-10-16 21:06] LABS: Alanine Aminotransferase 48 U/L (6-35); Albumin Level 3.9 g/dL (3.5-5.1); Alkaline Phosphatase 132 U/L (38-126); Anion Gap 11 mmol/L (8-16); Aspartate Amino Transferase 48 U/L (14-36); Bilirubin,Total 0.7 mg/dL (0.2-1.3); Blood Urea Nitrogen 10 mg/dL (7-17); Calcium 8.8 mg/dL (8.4-10.2); Carbon Dioxide 26 mmol/L (22-30); Chloride 96 mmol/L (98-107); Estimated Glomerular Filt Rate 53; Glucose 126 mg/dL (65-110); Lipase 28 U/L (23-300); Potassium 3.4 mmol/L (3.4-5.0); Sodium 133 mmol/L (137-145)
--- NOTE | 2022-10-16 21:26 | ED.ABDPAIN ---
HPI - Abdominal Pain General Chief Complaint: Abdominal Pain Stated Complaint: vomiting Time Seen by Provider: 10/16/22 20:38 History of Present Illness HPI narrative: Patient is a 51-year-old female who presents to the ER with right abdominal pain as well as fever. Fever just began today and this evening is 101.8 ?F. She recently underwent lithotripsy for a proximal right-sided stone. She had a stent placed by Dr. Taylor. No chest pain or chest pressure. No real cough or congestion. Related Data Home Medications Medication Instructions Recorded Confirmed cyclobenzaprine 10 mg tablet 10 mg PO TID PRN Muscle Pain 04/08/22 10/13/22 aspirin 81 mg tablet 81 mg PO DAILY 09/19/22 10/13/22 sumatriptan succinate 50 mg tablet 50 mg PO PRN PRN MIGRAINE 09/20/22 10/13/22 calcium carb 300 mg-D3 800 1 tablet PO DAILY 10/03/22 10/13/22 unit-mag ox 25 mg-copper tapper 0.5 mg-jorge-Zn tablet (Caltrate + D3 Plus Minerals) L.acidop,casei,lactis,rham-B.lact,clem 1 cap PO DAILY 10/13/22 10/13/22 625 mg (10 billion cell) capsule (Advanced Probiotic) hydrocodone 5 mg-acetaminophen 325 1 tablet PO Q6H PRN Pain 10/13/22 10/13/22 mg tablet oxybutynin chloride 5 mg tablet 5 mg PO BID PRN Bladder Spasms 10/13/22 10/13/22 simethicone 125 mg capsule (Gas-X 125 mg PO PRN PRN Gas 10/13/22 10/13/22 Extra Strength) tamsulosin 0.4 mg capsule 0.4 mg PO DAILY 10/13/22 10/13/22 Allergies Allergy/AdvReac Type Severity Reaction Status Date / Time NSAIDS (Non-Steroidal Allergy Severe SWELLING Verified 10/16/22 20:46 Anti-Inflamma IN LEGS venom-honey bee Allergy Swelling Verified 10/16/22 20:46 venom-wasp Allergy Swelling Verified 10/16/22 20:46 Cat Dander Allergy Severe chest Uncoded 10/16/22 20:46 congestion Molds and Smuts Allergy Severe chest Uncoded 10/16/22 20:46 congestion Review of Systems Review of Systems: All systems reviewed & are unremarkable except as noted in HPI and below Constitutional: Constitutional: Reports chills, Reports fatigue and Reports fever(s) ENT: Denies nasal congestion and Denies sore throat Cardiovascular: Cardiovascular: Denies chest pain, Denies rapid heart rate and Denies radiating jaw, neck or arm pain Respiratory: Respiratory: Denies cough and Denies dyspnea Gastrointestinal: Gastrointestinal: Reports abdominal pain, Denies diarrhea, Reports nausea and Reports vomiting Genitourinary: Genitourinary: Reports nocturia, Denies dysuria and Reports flank pain Neurologic: Denies headache(s), Denies focal weakness and Denies numbness PMFSH Past Medical History Medical History Arthritis Cerebral palsy Cervical cancer DVT (deep vein thrombosis) in Environmental allergies GERD without esophagitis Hyperlipidemia Migraine headache Patellar tendonitis Renal calculus Seizure Stomach ulcer Wears glasses Surgical History Surgical History H/O LEEP History of cystoscopy History of lithotripsy (~03/2022) History of lithotripsy [place] teeth extracted (~1995) Family History Family History Grandparent Cerebrovascular accident Family history of heart disease in male family member before age 55 Mother Cerebrovascular accident Father Alzheimer disease Social History Social History Social History: Surrogate medical decision maker: Renan Pierre, significant other. Code status: Full code. Smoking status: Never smoker Second hand tobacco smoke exposure: No Alcohol intake: never Drinks per week: 1 Alcohol use details: PT STATES WAS ABOUT 1 DRINK A WEEK - STATES LAST DRINK WAS 04/18/22 AND IS QUITING DRINKING FOR GOOD Substance use: never Substance use type: does not use Lack of Transportation: No Lack of Food: Never True Current H
[2022-10-16 21:55] LABS: Appearance Urine Clear (Clear); Bilirubin Urine 1+ (Negative); Blood Urine 3+ (Negative); Glucose Urine UA Negative (Negative); Ketones Urine 2+ mg/dL (Negative); Leukocyte Esterase Ur 1+ LEU/UL (Negative); Nitrate Urine Negative (Negative); Protein Urine 3+ mg/dL (Negative)
[2022-10-16 21:58] LABS: RBC Urine >75 /hpf (0-2); WBC Urine >75 /hpf
[2022-10-16 22:00] LABS: Add Urine Microscopic? YES; Color Urine Light Red (Yellow)
[2022-10-16 22:12] LABS: Influenza A QL RT-PCR Negative (Negative); Influenza B QL RT-PCR Negative (Negative); SARS-CoV-2 RNA PCR Negative
--- NOTE | 2022-10-16 23:08 | PC.NURSE ---
Patient report given to SHOLA Corral. All questions answered and care of patient transferred.
--- NOTE | 2022-10-16 23:59 | PM.IMHP ---
H&P: HPI History of Present Illness Date/Time: 10/16/22 23:59 Chief Complaint: Abdominal pain, nausea vomiting Narrative: Patient is a 51-year-old female with past medical history cerebral palsy, cervical cancer, GERD, migraines, peptic ulcers, kidney stones status post recent cystoscopy who presents the ED with complaints of fever, nausea and vomiting. Patient has had ongoing kidney stone issues since 09/19/2022 with numerous kidney stones right-sided. She was hospitalized from 09/19 - 09/21, 10/03-10/04 with right ureteral stent placed by Dr. Bailey 10/03, 10/13-10/14 undergoing cystoscopy right retrograde pyelogram, right ureteroscopy laser of ureteral and renal calculi, right ureteral stent placement by Dr. Taylor. She now presents with nausea, vomiting, fevers abdominal pain. In the ED: Patient T-max 101.8? at home. She is given distal Rocephin for leukocytosis WBC 17.9. Abdominal x-ray shows right internal ureteral stent 4 mm stone adjacent to the proximal stent. Dr. Story urology was notified recommending continued antibiotics and hospitalization. Urology will see patient in the morning and provide further recommendations. Patient admitted for observation for right nephrolithiasis and urine tract infection. Review of Systems Review of Systems: Constitutional: No Chills, No Night Sweats, No Fatigue, No Malaise. Endorses fever ENT/Mouth: No Hearing Changes, No Ear Pain, No Nasal Congestion, No Sinus Pain, No Hoarseness, No sore throat, No Rhinorrhea, No Swallowing Difficulty Eyes: No Eye Pain, No Redness, No Vision Changes Cardiovascular: No Chest Pain, No Palpitations, No Dyspnea on Exertion, No Orthopnea, No Claudication, No Edema Respiratory: No Cough, No Sputum, No Wheezing, No Shortness of Breath Gastrointestinal: Endorses nausea, vomiting, abdominal pain. Denies constipation, diarrhea Genitourinary: No Dysuria, No Urinary Frequency, No Hematuria, No Urinary Incontinence, No Urgency Musculoskeletal: No Arthralgias, No Myalgias, No Joint Swelling, No Joint Stiffness, No Back Pain Skin: No Skin Lesions, No Pruritis, No Hair Changes Neuro: No Weakness, No Numbness, No Paresthesias, No Loss of Consciousness, No Syncope, No Dizziness, No Headache Psych: No Anxiety/Panic, No Depression, No Insomnia Heme: No Bruising, No Bleeding Lymph: No Adenopathy Endocrine: No Polyuria, No Polydipsia, No Temperature Intolerance [facility] Past Medical History Medical History Arthritis Cerebral palsy Cervical cancer DVT (deep vein thrombosis) in Environmental allergies GERD without esophagitis Hyperlipidemia Migraine headache Patellar tendonitis Renal calculus Seizure Stomach ulcer Wears glasses Surgical History Surgical History H/O LEEP History of cystoscopy History of lithotripsy (~03/2022) History of lithotripsy [place] teeth extracted (~1995) Family History Family History Grandparent Cerebrovascular accident Family history of heart disease in male family member before age 55 Mother Cerebrovascular accident Father Alzheimer disease Social History Social History Social History: Surrogate medical decision maker: Renan Pierre, significant other. Code status: Full code. Smoking status: Never smoker Second hand tobacco smoke exposure: No Alcohol intake: never Drinks per week: 1 Alcohol use details: PT STATES WAS ABOUT 1 DRINK A WEEK - STATES LAST DRINK WAS 04/18/22 AND IS QUITING DRINKING FOR GOOD Substance use: never Substance use type: does not use Lack of Transportation: No Lack of Food: Never True Current Housing: I Have Housing Concerned About Future Housing: No Difficulty Paying Gas/Electric Bills: No Difficulty Paying for Meds: No Curre
--- NOTE | 2022-10-17 00:03 | ADMGEN ---
This patient, Esther Duarte, was admitted to [facility] Surg Room 324-02. Patient/family oriented to hospital policies and general routines including ID bracelet, bed and alarms, visiting hours, pain management, procedures, bathroom and other care routines, personal items, smoking policy, room service/diet, and visiting hours. Information on how to activate the Rapid Response Team has been discussed. Patient/Family are encouraged to report perceived risks to care and to ask questions if they do not understand what they are told or what they should do.
[2022-10-17 00:06] VITALS: BP 132/78; PULSE 94; RESP 20; TEMP 36.4; O2SAT 96; BMI 25.9
[2022-10-17] MEDS: SODIUM CHLORIDE 0.9% IV 1,000 ML 125 ML IV CONT ×3 (00:55→22:35)
[2022-10-17 03:06] VITALS: PULSE 94; RESP 20; O2SAT 96
[2022-10-17 05:58] VITALS: BP 118/75; PULSE 87; RESP 18; TEMP 36.4; O2SAT 96
[2022-10-17 07:21] LABS: Basophils Absolute Auto 0.1 K/mm3 (0.0-0.1); Basophils Percent Auto 0.3 % (0.2-1.2); Eosinophils Absolute Auto 0.9 K/mm3 (0-0.3); Eosinophils Percent Auto 5.2 % (0-4.4); Hematocrit 34.8 % (37.0-47.0); Hemoglobin 11.1 g/dL (12.0-15.0); Immature Granulocyte Percent A 0.6 % (0-0.5); Lymphocytes Absolute Auto 1.67 K/mm3 (0.9-3.2); Lymphocytes Percent Auto 9.6 % (18.3-44.2); Mean Corpuscular HGB Conc 31.9 g/dl (32-36); Mean Corpuscular Hemoglobin 28.3 pg (26-34); Mean Corpuscular Volume 88.8 fl (80-100); Mean Platelet Volume 10.5 fl (7.4-10.4); Monocytes Absolute Auto 1.9 K/mm3 (0.1-0.6); Monocytes Percent Auto 10.7 % (2.6-8.5); Neutrophils Absolute Auto 12.8 K/mm3 (1.3-6.7); Neutrophils Percent Auto 73.6 % (45.5-73.1); Platelet Count Result 297 k/mm3 (150-375); Red Blood Count 3.92 M/mm3 (4.2-5.4); Red Cell Distribution Width 13.4 % (11.5-14.5); White Blood Count 17.4 K/mm3 (4.5-10.0)
[2022-10-17 07:35] LABS: Alanine Aminotransferase 41 U/L (6-35); Albumin Level 3.7 g/dL (3.5-5.1); Alkaline Phosphatase 111 U/L (38-126); Anion Gap 10 mmol/L (8-16); Aspartate Amino Transferase 36 U/L (14-36); Bilirubin,Total 0.6 mg/dL (0.2-1.3); Blood Urea Nitrogen 9 mg/dL (7-17); Calcium 8.2 mg/dL (8.4-10.2); Carbon Dioxide 24 mmol/L (22-30); Chloride 102 mmol/L (98-107); Estimated CRCL calculation 59 ml/min; Estimated Glomerular Filt Rate > 60; Glucose 111 mg/dL (65-110); Potassium 3.5 mmol/L (3.4-5.0); Sodium 136 mmol/L (137-145)
[2022-10-17] MEDS: MORPHINE SULFATE (*CRX) 4 MG/ML INJ IV PUSH ×3 (08:39→22:34)
--- NOTE | 2022-10-17 11:30 | PM.IMPN ---
Progress Note: A&P Assessment and Plan (1) Sepsis: Code(s): A41.9 - Sepsis, unspecified organism Status: Acute Assessment and Plan: Meets sepsis criteria with leukocytosis (17.4), fever, tachycardia, tachypnea Source of infection appears to be renal in nature Blood cultures pending Urine culture pending Fluids given and continued Creatinine slightly elevated from baseline Continue ceftriaxone Continue to trend labs (2) UTI (urinary tract infection): Code(s): N39.0 - Urinary tract infection, site not specified Status: Acute Assessment and Plan: UA does appear to be infectious Continue ceftriaxone at this time Culture is pending Adjust antibiotics to sensitivities (3) Calculus of proximal right ureter: Code(s): N20.1 - Calculus of ureter Status: Acute Assessment and Plan: patient has known kidney stones, status post stent placed 10/03/2022 Dr. Bailey, subsequent laser lithotripsy 10/12/2022 Dr. Brandon Jerry shows stent in place with a 4mm stone consult Urology thank you for your help Continue Rocephin IV fluids: Normal saline 125 cc/hour leukocytosis and fevers will continue IV antibiotics, trend lab work. Blood cultures urine culture pending pain control: P.r.n. morphine (4) Migraine headache: Qualifiers: Intractability: intractable Migraine type: without aura Status migrainosus presence: without status migrainosus Qualified Code(s): G43.019 - Migraine without aura, intractable, without status migrainosus Code(s): G43.909 - Migraine, unspecified, not intractable, without status migrainosus Status: Chronic Assessment and Plan: Continue PRN Sumatriptan Adjust therapy as indicated (5) Cerebral palsy: Qualifiers: Cerebral palsy type: unspecified type Qualified Code(s): G80.9 - Cerebral palsy, unspecified Code(s): G80.9 - Cerebral palsy, unspecified Status: Acute Assessment and Plan: Unknown type Stable (6) Seizure disorder: Code(s): G40.909 - Epilepsy, unspecified, not intractable, without status epilepticus Status: Acute Assessment and Plan: Pt felt like she was going to have a seizure Ativan 0.5 IV given once Seem stable She is not on any home medications for this Time Spent With Patient Time with patient: Greater than 35 minutes Subjective Date/time seen: 10/17/22 1130 Interval history: 10/17/22 1130 Patient was sitting in bed. She stated that she was nauseated after drinking her Ensure. She stated that she has been walking to the door and been able to do well with that. She also states that her stomach just really not feeling great. She denies any chest pain, shortness a breath, flank pain, diarrhea, constipation. I did get a call from the nurse who stated that the patient felt she was going to have a seizure. Did care for her a 1 time dose of Ativan IV. 10/16/22? 23:59 Patient is a 51-year-old female with past medical history cerebral palsy, cervical cancer, GERD, migraines, peptic ulcers, kidney stones status post recent cystoscopy who presents the ED with complaints of fever, nausea and vomiting.? Patient has had ongoing kidney stone issues since 09/19/2022 with numerous kidney stones right-sided.? She was hospitalized from 09/19 - 09/21, 10/03-10/04 with right ureteral stent placed by Dr. Bailey 10/03, 10/13-10/14 undergoing cystoscopy right retrograde pyelogram, right ureteroscopy laser of ureteral and renal calculi, right ureteral stent placement by Dr. Taylor.? She now presents with nausea, vomiting, fevers abdominal pain. In the ED:? Patient T-max 101.8? at home.? She is given distal Rocephin for leukocytosis WBC 17.9.? Abdominal x-ray shows right internal ureteral stent 4 mm stone adjacent to the proximal stent. Dr. Story urology was notified recommending
--- NOTE | 2022-10-17 11:30 | P.PNIM_ITS ---
Progress Note: A&P Assessment and Plan (1) Sepsis: Code(s): A41.9 - Sepsis, unspecified organism Status: Acute Assessment and Plan: * Meets sepsis criteria with leukocytosis (17.4), fever, tachycardia, tachypnea * Source of infection appears to be renal in nature * Blood cultures pending * Urine culture pending * Fluids given and continued * Creatinine slightly elevated from baseline * Continue ceftriaxone * Continue to trend labs (2) UTI (urinary tract infection): Code(s): N39.0 - Urinary tract infection, site not specified Status: Acute Assessment and Plan: * UA does appear to be infectious * Continue ceftriaxone at this time * Culture is pending * Adjust antibiotics to sensitivities (3) Calculus of proximal right ureter: Code(s): N20.1 - Calculus of ureter Status: Acute Assessment and Plan: * patient has known kidney stones, status post stent placed 10/03/2022 Dr. Bailey, subsequent laser lithotripsy 10/12/2022 Dr. Taylor * Xray shows stent in place with a 4mm stone * consult Urology thank you for your help * Continue Rocephin * IV fluids: Normal saline 125 cc/hour * leukocytosis and fevers will continue IV antibiotics, trend lab work. * Blood cultures urine culture pending * pain control: P.r.n. morphine (4) Migraine headache: Qualifiers: Intractability: intractable Migraine type: without aura Status migrainosus presence: without status migrainosus Qualified Code(s): G43.019 - Migraine without aura, intractable, without status migrainosus Code(s): G43.909 - Migraine, unspecified, not intractable, without status migrainosus Status: Chronic Assessment and Plan: * Continue PRN Sumatriptan * Adjust therapy as indicated (5) Cerebral palsy: Qualifiers: Cerebral palsy type: unspecified type Qualified Code(s): G80.9 - Cerebral palsy, unspecified Code(s): G80.9 - Cerebral palsy, unspecified Status: Acute Assessment and Plan: * Unknown type * Stable (6) Seizure disorder: Code(s): G40.909 - Epilepsy, unspecified, not intractable, without status epilepticus Status: Acute Assessment and Plan: * Pt felt like she was going to have a seizure * Ativan 0.5 IV given once * Seem stable * She is not on any home medications for this Time Spent With Patient Time with patient: Greater than 35 minutes Subjective Date/time seen: 10/17/22 1130 Interval history: 10/17/22 113 Patient was sitting in bed. She stated that she was nauseated after drinking her Ensure. She stated that she has been walking to the door and been able to do well with that. She also states that her stomach just really not feeling great. She denies any chest pain, shortness a breath, flank pain, diarrhea, constipation. I did get a call from the nurse who stated that the patient felt she was going to have a seizure. Did care for her a 1 time dose of Ativan IV. 10/16/22? 23:59 Patient is a 51-year-old female with past medical history cerebral palsy, cervical cancer, GERD, migraines, peptic ulcers, kidney stones status post recent cystoscopy who presents the ED with complaints of fever, nausea and vomiting.? Patient has had ongoing kidney stone issues since 09/19/2022 with numerous kidney stones right-sided.? She was hospitalized from 09/19 - 09/21, 10/03-10/04 w
[2022-10-17] MEDS: LORazepam INJ (*CRX) 2 MG/ML VIAL 0.5 MG IV PUSH (12:23)
[2022-10-17] MEDS: ONDANSETRON INJ 4 MG/2 ML VIAL IV PUSH (12:24)
--- NOTE | 2022-10-17 12:39 | WPDURCON ---
Assessment and Plan Assessment and plan (1) Calculus of proximal right ureter: Code(s): N20.1 - Calculus of ureter Status: Acute (2) UTI (urinary tract infection): Code(s): N39.0 - Urinary tract infection, site not specified Status: Acute Plan 51-year-old female postop day 3. From right ureteroscopy, laser lithotripsy, stone extraction, stent exchange. Admitted for potential urinary tract infection with sepsis. KUB showing ureteral stent in place with small fragment adjacent to the stent. - continue IV antibiotics. Await final urine cultures - likely plan follow-up as scheduled with repeat KUB to assess need for additional stone intervention versus stent removal. Urology Consult Note HPI Date Seen: 10/17/22 Requesting Physician: Kendrick Miranda DO Primary Care Provider: Ayaz Jimenez MD Consult Narrative Narrative: Esther Duarte is a 51 year old female with a history nephrolithiasis. She underwent stent placement 10/03/2022 Dr. Bailey, subsequent laser lithotripsy 10/12/2022 Dr. Taylor. patient presents to the ER last night with complaints of fever. She was found to have elevated white blood cell count And urine concerning for infection. Patient was admitted to the hospital for evaluation. [facility] Past Medical History Medical History (Updated 10/17/22 @ 09:08 by RADHA Ortega) Abnormal urinalysis Arthritis BMI 27.0-27.9,adult Cerebral palsy Cervical cancer DVT (deep vein thrombosis) in Elevated LFTs Environmental allergies External hemorrhoid GERD without esophagitis Hydroureteronephrosis Hyperlipidemia Kidney stone on right side Migraine headache Obstruction of right ureteropelvic junction due to stone Patellar tendonitis Renal calculus Right ureteral stone Seizure disorder Stomach ulcer Urinary tract infection Wears glasses Surgical History Surgical History H/O LEEP History of cystoscopy History of lithotripsy (~03/2022) History of lithotripsy Julian teeth extracted (~1995) Family History Family History Grandparent Cerebrovascular accident Family history of heart disease in male family member before age 55 Mother Cerebrovascular accident Father Alzheimer disease Social History Social History Social History: Surrogate medical decision maker: Renan Pierre, significant other. Code status: Full code. Smoking status: Never smoker Second hand tobacco smoke exposure: No Alcohol intake: former Drinks per week: 1 Alcohol use details: PT STATES WAS ABOUT 1 DRINK A WEEK - STATES LAST DRINK WAS 04/18/22 AND IS QUITING DRINKING FOR GOOD Substance use: never Substance use type: does not use Lack of Transportation: No Lack of Food: Never True Current Housing: I Have Housing Concerned About Future Housing: No Difficulty Paying Gas/Electric Bills: No Difficulty Paying for Meds: No Currently Unemployed: No Education: Grade School Difficulty w/ Childcare or Family Care: No Additional living arrangements comments: PT LIVES WITH SIGNIFICANT OTHER Additional occupation/education comments: Disabled Gender identity (if verbalized by the patient): Female Spiritual care concerns: No Meds Home Medications and Allergies Home Medications Medication Instructions Recorded Confirmed Type cyclobenzaprine 10 mg tablet 10 mg PO TID PRN Muscle Pain 04/08/22 10/17/22 History cetirizine 10 mg tablet (Allergy 10 mg PO DAILY PRN Congestion #90 09/01/22 10/17/22 Rx Relief (cetirizine)) tabs aspirin 81 mg tablet 81 mg PO DAILY 09/19/22 10/17/22 History sumatriptan succinate 50 mg tablet 50 mg PO PRN PRN MIGRAINE 09/20/22 10/17/22 History Allergies Allergy/AdvReac Type Severity Reaction Status Date / Time NSAIDS
[2022-10-17 14:00] VITALS: BP 124/67; PULSE 94; RESP 14; TEMP 36.5; O2SAT 100
[2022-10-17 20:00] VITALS: PULSE 89; RESP 14; O2SAT 96
[2022-10-17 21:30] VITALS: BP 119/76; PULSE 89; RESP 14; TEMP 37; O2SAT 96
[2022-10-17] MEDS: CYCLOBENZAPRINE HCL 10 MG TABLET PO (23:46)
[2022-10-18] MEDS: MORPHINE SULFATE (*CRX) 4 MG/ML INJ IV PUSH ×4 (01:37→21:15)
[2022-10-18 05:49] LABS: Basophils Absolute Auto 0.1 K/mm3 (0.0-0.1); Basophils Percent Auto 0.4 % (0.2-1.2); Eosinophils Percent Auto 7.8 % (0-4.4); Hematocrit 32.9 % (37.0-47.0); Hemoglobin 10.4 g/dL (12.0-15.0); Immature Granulocyte Absolute 0.06 K/mm3 (0.00-0.031); Immature Granulocyte Percent A 0.5 % (0-0.5); Lymphocytes Absolute Auto 1.99 K/mm3 (0.9-3.2); Lymphocytes Percent Auto 15.9 % (18.3-44.2); Mean Corpuscular HGB Conc 31.6 g/dl (32-36); Mean Corpuscular Hemoglobin 28.2 pg (26-34); Mean Corpuscular Volume 89.2 fl (80-100); Mean Platelet Volume 10.4 fl (7.4-10.4); Monocytes Absolute Auto 1.5 K/mm3 (0.1-0.6); Monocytes Percent Auto 11.6 % (2.6-8.5); Neutrophils Percent Auto 63.8 % (45.5-73.1); Platelet Count Result 312 k/mm3 (150-375); Red Blood Count 3.69 M/mm3 (4.2-5.4); Red Cell Distribution Width 13.3 % (11.5-14.5); White Blood Count 12.5 K/mm3 (4.5-10.0)
[2022-10-18 06:00] VITALS: BP 129/81; PULSE 92; RESP 14; TEMP 36.6; O2SAT 100
[2022-10-18 06:03] LABS: Alanine Aminotransferase 45 U/L (6-35); Albumin Level 3.3 g/dL (3.5-5.1); Alkaline Phosphatase 106 U/L (38-126); Anion Gap 8 mmol/L (8-16); Aspartate Amino Transferase 69 U/L (14-36); Bilirubin,Total 0.4 mg/dL (0.2-1.3); Blood Urea Nitrogen 8 mg/dL (7-17); Calcium 7.6 mg/dL (8.4-10.2); Carbon Dioxide 25 mmol/L (22-30); Chloride 101 mmol/L (98-107); Estimated CRCL calculation 48 ml/min; Estimated Glomerular Filt Rate 59; Glucose 96 mg/dL (65-110); Magnesium 2.2 mg/dL (1.6-2.3); Potassium 3.4 mmol/L (3.4-5.0); Sodium 134 mmol/L (137-145)
[2022-10-18] MEDS: SODIUM CHLORIDE 0.9% IV 1,000 ML 125 ML IV CONT (10:09)
--- NOTE | 2022-10-18 10:15 | PM.IMPN ---
Progress Note: A&P Assessment and Plan (1) Sepsis: Code(s): A41.9 - Sepsis, unspecified organism Status: Acute Assessment and Plan: Meets sepsis criteria with leukocytosis (17.4), fever, tachycardia, tachypnea Source of infection appears to be renal in nature Blood cultures pending Urine culture still pending Fluids given and continued Creatinine slightly elevated from baseline Continue ceftriaxone Continue to trend labs (2) UTI (urinary tract infection): Code(s): N39.0 - Urinary tract infection, site not specified Status: Acute Assessment and Plan: UA does appear to be infectious Continue ceftriaxone at this time Culture is pending Adjust antibiotics to sensitivities (3) Calculus of proximal right ureter: Code(s): N20.1 - Calculus of ureter Status: Acute Assessment and Plan: patient has known kidney stones, status post stent placed 10/03/2022 Dr. Bailey, subsequent laser lithotripsy 10/12/2022 Dr. Brandon Jerry shows stent in place with a 4mm stone consult Urology thank you for your help Continue Rocephin IV fluids: Normal saline 125 cc/hour leukocytosis and fevers will continue IV antibiotics, trend lab work. Blood cultures urine culture pending pain control: P.r.n. morphine (4) Migraine headache: Qualifiers: Migraine type: without aura Status migrainosus presence: without status migrainosus Intractability: intractable Qualified Code(s): G43.019 - Migraine without aura, intractable, without status migrainosus Code(s): G43.909 - Migraine, unspecified, not intractable, without status migrainosus Status: Chronic Assessment and Plan: Continue PRN Sumatriptan Adjust therapy as indicated (5) Cerebral palsy: Qualifiers: Cerebral palsy type: unspecified type Qualified Code(s): G80.9 - Cerebral palsy, unspecified Code(s): G80.9 - Cerebral palsy, unspecified Status: Acute Assessment and Plan: Unknown type Stable (6) Seizure disorder: Code(s): G40.909 - Epilepsy, unspecified, not intractable, without status epilepticus Status: Acute Assessment and Plan: Pt felt like she was going to have a seizure Ativan 0.5 IV given once Seem stable She is not on any home medications for this Time Spent With Patient Time with patient: Greater than 35 minutes Subjective Date/time seen: 10/18/22 1015 Interval history: 10/18/22 1015 Patient stated that she is doing okay today. She does have some belly pain however it is a 4/10. She is really concerned because she would like something to eat and she would like KUB. She denies any chest pain, shortness a breath, nausea, vomiting, diarrhea or constipation. She stated that she is having a burning sensation in the right kidney area. 10/17/22 1130 Patient was sitting in bed. She stated that she was nauseated after drinking her Ensure. She stated that she has been walking to the door and been able to do well with that. She also states that her stomach just really not feeling great. She denies any chest pain, shortness a breath, flank pain, diarrhea, constipation. I did get a call from the nurse who stated that the patient felt she was going to have a seizure. Did care for her a 1 time dose of Ativan IV. 10/16/22? 23:59 Patient is a 51-year-old female with past medical history cerebral palsy, cervical cancer, GERD, migraines, peptic ulcers, kidney stones status post recent cystoscopy who presents the ED with complaints of fever, nausea and vomiting.? Patient has had ongoing kidney stone issues since 09/19/2022 with numerous kidney stones right-sided.? She was hospitalized from 09/19 - 09/21, 10/03-10/04 with right ureteral stent placed by Dr. Bailey 10/03, 10/13-10/14 undergoing cystoscopy right retrograde pyelogram, right ureteroscopy laser of ur
--- NOTE | 2022-10-18 10:15 | P.PNIM_ITS ---
Progress Note: A&P Assessment and Plan (1) Sepsis: Code(s): A41.9 - Sepsis, unspecified organism Status: Acute Assessment and Plan: * Meets sepsis criteria with leukocytosis (17.4), fever, tachycardia, tachypnea * Source of infection appears to be renal in nature * Blood cultures pending * Urine culture still pending * Fluids given and continued * Creatinine slightly elevated from baseline * Continue ceftriaxone * Continue to trend labs (2) UTI (urinary tract infection): Code(s): N39.0 - Urinary tract infection, site not specified Status: Acute Assessment and Plan: * UA does appear to be infectious * Continue ceftriaxone at this time * Culture is pending * Adjust antibiotics to sensitivities (3) Calculus of proximal right ureter: Code(s): N20.1 - Calculus of ureter Status: Acute Assessment and Plan: * patient has known kidney stones, status post stent placed 10/03/2022 Dr. Bailey, subsequent laser lithotripsy 10/12/2022 Dr. Taylor * Xray shows stent in place with a 4mm stone * consult Urology thank you for your help * Continue Rocephin * IV fluids: Normal saline 125 cc/hour * leukocytosis and fevers will continue IV antibiotics, trend lab work. * Blood cultures urine culture pending * pain control: P.r.n. morphine (4) Migraine headache: Qualifiers: Migraine type: without aura Status migrainosus presence: without status migrainosus Intractability: intractable Qualified Code(s): G43.019 - Migraine without aura, intractable, without status migrainosus Code(s): G43.909 - Migraine, unspecified, not intractable, without status migrainosus Status: Chronic Assessment and Plan: * Continue PRN Sumatriptan * Adjust therapy as indicated (5) Cerebral palsy: Qualifiers: Cerebral palsy type: unspecified type Qualified Code(s): G80.9 - Cerebral palsy, unspecified Code(s): G80.9 - Cerebral palsy, unspecified Status: Acute Assessment and Plan: * Unknown type * Stable (6) Seizure disorder: Code(s): G40.909 - Epilepsy, unspecified, not intractable, without status epilepticus Status: Acute Assessment and Plan: * Pt felt like she was going to have a seizure * Ativan 0.5 IV given once * Seem stable * She is not on any home medications for this Time Spent With Patient Time with patient: Greater than 35 minutes Subjective Date/time seen: 10/18/22 1015 Interval history: 10/18/22 1015 Patient stated that she is doing okay today. She does have some belly pain however it is a 4/10. She is really concerned because she would like something to eat and she would like KUB. She denies any chest pain, shortness a breath, nausea, vomiting, diarrhea or constipation. She stated that she is having a burning sensation in the right kidney area. 10/17/22 1130 Patient was sitting in bed. She stated that she was nauseated after drinking her Ensure. She stated that she has been walking to the door and been able to do well with that. She also states that her stomach just really not feeling great. She denies any chest pain, shortness a breath, flank pain, diarrhea, constipation. I did get a call from the nurse who stated that the patient felt she was going to have a seizure. Did care for her a 1 time dose of Ativan IV. 10/16/22? 23:59
--- NOTE | 2022-10-18 11:31 | WPDUROPN2 ---
Progress Note: A&P Assessment and Plan (1) UTI (urinary tract infection): Code(s): N39.0 - Urinary tract infection, site not specified Status: Acute (2) Sepsis: Code(s): A41.9 - Sepsis, unspecified organism Status: Acute (3) Calculus of proximal right ureter: Code(s): N20.1 - Calculus of ureter Status: Acute Plan 51-year-old female POD#4 right ureteroscopy, laser lithotripsy, stone extraction, stent exchange.? Admitted for potential urinary tract infection with sepsis.? KUB showing ureteral stent in place with small fragment adjacent to the stent. -WBC count improving this morning. -? continue IV antibiotics.? Await final urine cultures - ? plan follow-up as scheduled with Dr. Taylor to assess need for additional stone intervention versus stent removal. Subjective Subjective Date/Time Seen: 10/18/22 11:31 Patient states she is better today Exam Narrative: Patient is awake and alert. She is in no acute distress her breathing is unlabored. Objective Data Vital Signs Vital Signs: Vital Signs - 24 hr 10/17/22 14:00 10/17/22 21:30 10/17/22 20:00 Temperature 36.5 C 37.0 C Pulse Rate 94 89 89 Respiratory Rate 14 14 14 Blood Pressure 124/67 119/76 Pulse Oximetry 100 96 96 Oxygen Delivery Room Air 10/18/22 06:00 10/18/22 08:00 Temperature 36.6 C Pulse Rate 92 Respiratory Rate 14 Blood Pressure 129/81 Pulse Oximetry 100 Oxygen Delivery Room Air Intake/Output Intake/Output: Intake & Output 10/15/22 10/16/22 10/17/22 10/18/22 23:59 23:59 23:59 23:59 Intake Total 1050 2500 1300 Output Total 900 500 Balance 1050 1600 800 Meds/Results Medications: Active Medications Generic Name Dose Route Start Last Admin Trade Name Freq PRN Reason Stop Dose Admin Cyclobenzaprine HCl 10 mg 10/17/22 09:02 10/17/22 23:46 Cyclobenzaprine Hcl 10 Mg Tablet PO 10 mg TID PRN Administration Muscle Pain Sodium Chloride 1,000 mls @ 125 mls/hr 10/16/22 22:50 10/18/22 10:09 Normal Saline Iv IV CONT 125 mls/hr .Q8H DAWSON Administration Ceftriaxone Sodium/Dextrose 1 gm in 50 mls @ 100 mls/hr 10/17/22 23:00 10/17/22 23:48 Rocephin 1 Gm/D5w 50 Ml IVPB Infused Q24H DAWSON Infusion Loratadine 10 mg 10/17/22 09:35 Loratadine 10 Mg Tablet PO DAILY PRN Congestion Morphine Sulfate 4 mg 10/16/22 22:49 10/18/22 10:09 Morphine Sulfate (*Crx) 4 Mg/Ml Inj IV PUSH 4 mg Q2H PRN Administration Pain Rated 7-10 Ondansetron HCl 4 mg 10/16/22 22:49 10/17/22 12:24 Ondansetron Inj 4 Mg/2 Ml Vial IV PUSH 4 mg Q4H PRN Administration Nausea Sumatriptan Succinate 50 mg 10/17/22 09:02 Sumatriptan Succinate 25 Mg Tablet PO PRN PRN Migraine Headache Labs Labs: Laboratory Results - last 24 hr 10/18/22 10/18/22 05:37 05:38 WBC 12.5 H RBC 3.69 L Hgb 10.4 L Hct 32.9 L MCV 89.2 MCH 28.2 MCHC 31.6 L RDW 13.3 Plt Count 312 MPV 10.4 Immature Gran % (Auto) 0.5 Neut % (Auto) 63.8 Lymph % (Auto) 15.9 L [place] % (Auto) 11.6 H Eos % (Auto) 7.8 H Baso % (Auto) 0.4 Lymph # (Auto) 1.99 [place] # (Auto) 1.5 H Eos # (Auto) 1.0 H Baso # (Auto) 0.1 Abs Immat Gran (auto) 0.06 H Absolute Neuts (auto) 8.0 H Absolute Nucleated RBC 0.0 Nucleated RBC % 0.0 Sodium 134 L Potassium 3.4 Chloride 101 Carbon Dioxide 25 Anion Gap 8 BUN 8 Creatinine 1.00 Estim Creat Clear Calc 48 Estimated GFR 59 Glucose 96 Calcium 7.6 L Magnesium 2.2 Total Bilirubin 0.4 AST 69 H ALT 45 H Alkaline Phosphatase 106 Total Protein 7.0 Albumin 3.3 L
[2022-10-18 14:00] VITALS: BP 131/72; PULSE 93; RESP 16; TEMP 36.4; O2SAT 97
[2022-10-18] MEDS: CYCLOBENZAPRINE HCL 10 MG TABLET PO (16:52)
[2022-10-18 21:22] VITALS: BP 114/68; PULSE 95; RESP 16; TEMP 36.6; O2SAT 98
[2022-10-19 06:00] VITALS: BP 122/73; PULSE 92; RESP 18; TEMP 36.5; O2SAT 98
[2022-10-19 06:18] LABS: Alanine Aminotransferase 57 U/L (6-35); Albumin Level 3.1 g/dL (3.5-5.1); Alkaline Phosphatase 125 U/L (38-126); Anion Gap 9 mmol/L (8-16); Aspartate Amino Transferase 42 U/L (14-36); Bilirubin,Total 0.3 mg/dL (0.2-1.3); Blood Urea Nitrogen 8 mg/dL (7-17); Calcium 8.1 mg/dL (8.4-10.2); Carbon Dioxide 27 mmol/L (22-30); Chloride 101 mmol/L (98-107); Estimated CRCL calculation 48 ml/min; Estimated Glomerular Filt Rate 59; Glucose 96 mg/dL (65-110); Magnesium 2.1 mg/dL (1.6-2.3); Potassium 3.1 mmol/L (3.4-5.0); Sodium 137 mmol/L (137-145)
[2022-10-19 06:22] LABS: Basophils Percent Auto 0.3 % (0.2-1.2); Eosinophils Absolute Auto 0.9 K/mm3 (0-0.3); Eosinophils Percent Auto 7.7 % (0-4.4); Hematocrit 30.1 % (37.0-47.0); Hemoglobin 9.6 g/dL (12.0-15.0); Immature Granulocyte Absolute 0.05 K/mm3 (0.00-0.031); Immature Granulocyte Percent A 0.4 % (0-0.5); Lymphocytes Percent Auto 13.6 % (18.3-44.2); Mean Corpuscular HGB Conc 31.9 g/dl (32-36); Mean Corpuscular Hemoglobin 28.2 pg (26-34); Mean Corpuscular Volume 88.3 fl (80-100); Mean Platelet Volume 10.8 fl (7.4-10.4); Monocytes Absolute Auto 1.5 K/mm3 (0.1-0.6); Monocytes Percent Auto 12.4 % (2.6-8.5); Neutrophils Absolute Auto 7.7 K/mm3 (1.3-6.7); Neutrophils Percent Auto 65.6 % (45.5-73.1); Platelet Count Result 307 k/mm3 (150-375); Red Blood Count 3.41 M/mm3 (4.2-5.4); Red Cell Distribution Width 13.2 % (11.5-14.5); White Blood Count 11.8 K/mm3 (4.5-10.0)
--- NOTE | 2022-10-19 06:28 | WPDUROPN2 ---
Progress Note: A&P Assessment and Plan (1) Calculus of proximal right ureter: Code(s): N20.1 - Calculus of ureter Status: Acute Assessment and Plan: Urine culture: Contaminated Blood cultures: Pending Switch to oral antibiotics based on blood culture results and overall clinical picture well, tentatively, plan follow-up with stent removal in the office next week Plan Subjective Subjective Date/Time Seen: 10/19/22 06:28 Sleeping - comfortable Review of Systems Review of Systems: All systems reviewed & are unremarkable except as noted in HPI and below Exam Const: General: no acute distress Resp: Effort & Inspection: normal respiratory effort GI: Inspection: non-distended GI Palp: No abdominal tenderness and No Guarding due to palpation present (GI) Auscultation: normal bowel sounds Objective Data Vital Signs Vital Signs: Vital Signs - 24 hr 10/18/22 08:00 10/18/22 14:00 10/18/22 21:22 Temperature 97.6 F 97.8 F Pulse Rate 93 95 Respiratory Rate 16 16 Blood Pressure 131/72 114/68 Pulse Oximetry 97 98 Oxygen Delivery Room Air Intake/Output Intake/Output: Intake & Output 10/16/22 10/17/22 10/18/22 10/19/22 23:59 23:59 23:59 23:59 Intake Total 1050 2500 1770 Output Total 900 1350 Balance 1050 1600 420 Meds/Results Medications: Active Medications Generic Name Dose Route Start Last Admin Trade Name Freq PRN Reason Stop Dose Admin Cyclobenzaprine HCl 10 mg 10/17/22 09:02 10/18/22 16:52 Cyclobenzaprine Hcl 10 Mg Tablet PO 10 mg TID PRN Administration Muscle Pain Sodium Chloride 1,000 mls @ 125 mls/hr 10/16/22 22:50 10/18/22 16:27 Normal Saline Iv IV CONT Not Given .Q8H DAWSON Ceftriaxone Sodium/Dextrose 1 gm in 50 mls @ 100 mls/hr 10/17/22 23:00 10/19/22 05:13 Rocephin 1 Gm/D5w 50 Ml IVPB 100 mls/hr Q24H DAWSON Infusion Loratadine 10 mg 10/17/22 09:35 Loratadine 10 Mg Tablet PO DAILY PRN Congestion Morphine Sulfate 4 mg 10/16/22 22:49 10/18/22 21:15 Morphine Sulfate (*Crx) 4 Mg/Ml Inj IV PUSH 4 mg Q2H PRN Administration Pain Rated 7-10 Ondansetron HCl 4 mg 10/16/22 22:49 10/17/22 12:24 Ondansetron Inj 4 Mg/2 Ml Vial IV PUSH 4 mg Q4H PRN Administration Nausea Sumatriptan Succinate 50 mg 10/17/22 09:02 Sumatriptan Succinate 25 Mg Tablet PO PRN PRN Migraine Headache Radiology Results: ITS Impressions Abdomen X-Ray 10/18/22 17:41 IMPRESSION: Stable right nephrolithiasis. Gallbladder hydrops. No radiographic evidence of ileus or obstruction. Labs Labs: Laboratory Results - last 24 hr 10/19/22 05:33 Sodium 137 Potassium 3.1 L Chloride 101 Carbon Dioxide 27 Anion Gap 9 BUN 8 Creatinine 1.00 Estim Creat Clear Calc 48 Estimated GFR 59 Glucose 96 Calcium 8.1 L Magnesium 2.1 Total Bilirubin 0.3 AST 42 H ALT 57 H Alkaline Phosphatase 125 Total Protein 7.0 Albumin 3.1 L
--- NOTE | 2022-10-19 09:15 | PM.IMPN ---
Progress Note: A&P Assessment and Plan (1) Sepsis: Code(s): A41.9 - Sepsis, unspecified organism Status: Acute Assessment and Plan: Meets sepsis criteria with leukocytosis (17.4), fever, tachycardia, tachypnea Source of infection appears to be renal in nature Blood cultures pending Urine culture contaminated, recollect Fluids can be stopped Creatinine back to baseline Continue ceftriaxone Continue to trend labs (2) UTI (urinary tract infection): Code(s): N39.0 - Urinary tract infection, site not specified Status: Acute Assessment and Plan: UA does appear to be infectious Continue ceftriaxone at this time Culture contaminated repeat UA Adjust antibiotics to sensitivities (3) Calculus of proximal right ureter: Code(s): N20.1 - Calculus of ureter Status: Acute Assessment and Plan: patient has known kidney stones, status post stent placed 10/03/2022 Dr. Bailey, subsequent laser lithotripsy 10/12/2022 Dr. Brandon Kohliay shows stent in place with a 4mm stone consult Urology thank you for your help Continue Rocephin IV fluids: Normal saline 125 cc/hour, can be DC'd at this time leukocytosis and fevers seems to be resolved Blood cultures urine culture pending pain control: P.r.n. morphine (4) Migraine headache: Qualifiers: Migraine type: without aura Status migrainosus presence: without status migrainosus Intractability: intractable Qualified Code(s): G43.019 - Migraine without aura, intractable, without status migrainosus Code(s): G43.909 - Migraine, unspecified, not intractable, without status migrainosus Status: Chronic Assessment and Plan: Continue PRN Sumatriptan Adjust therapy as indicated (5) Cerebral palsy: Qualifiers: Cerebral palsy type: unspecified type Qualified Code(s): G80.9 - Cerebral palsy, unspecified Code(s): G80.9 - Cerebral palsy, unspecified Status: Acute Assessment and Plan: Unknown type Stable (6) Seizure disorder: Code(s): G40.909 - Epilepsy, unspecified, not intractable, without status epilepticus Status: Acute Assessment and Plan: Pt felt like she was going to have a seizure Ativan 0.5 IV given once Seem stable She is not on any home medications for this (7) Anemia: Code(s): D64.9 - Anemia, unspecified Status: Acute Assessment and Plan: H/H is trending down currently 9.6/30.1 Continue to trend Anemia labs in process Appears to be on her cycle Could also be from iron deficiency Type unknown at this time Transfuse as indicated Time Spent With Patient Time with patient: Greater than 35 minutes Subjective Date/time seen: 10/19/22914 Interval history: 10/19/22914 patient is very emotional today. Patient stated that she is having some left-sided lower quadrant pain along with left-sided flank pain. She is also having some notable bleeding however states that could not be or cycle as it ended 2 days ago. UA did come back contaminated will repeat at this time. KUB did show the right-sided stones. Will repeat KUB today. She denies any chest pain, shortness a breath, diarrhea or constipation. Patient did have a bowel movement her depends and had to be cleaned up. Was able to see someone notable bleeding on pad however seems like it is coming from her vagina. Bowel movement did not appear to have any blood in it. was in the room and stated that the patient was dry heaving this morning. 10/18/22 1015 Patient stated that she is doing okay today. She does have some belly pain however it is a 4/10. She is really concerned because she would like something to eat and she would like KUB. She denies any chest pain, shortness a breath, nausea, vomiting, diarrhea or constipation. She stated that she i
--- NOTE | 2022-10-19 09:15 | P.PNIM_ITS ---
Progress Note: A&P Assessment and Plan (1) Sepsis: Code(s): A41.9 - Sepsis, unspecified organism Status: Acute Assessment and Plan: * Meets sepsis criteria with leukocytosis (17.4), fever, tachycardia, tachypnea * Source of infection appears to be renal in nature * Blood cultures pending * Urine culture contaminated, recollect * Fluids can be stopped * Creatinine back to baseline * Continue ceftriaxone * Continue to trend labs (2) UTI (urinary tract infection): Code(s): N39.0 - Urinary tract infection, site not specified Status: Acute Assessment and Plan: * UA does appear to be infectious * Continue ceftriaxone at this time * Culture contaminated * repeat UA * Adjust antibiotics to sensitivities (3) Calculus of proximal right ureter: Code(s): N20.1 - Calculus of ureter Status: Acute Assessment and Plan: * patient has known kidney stones, status post stent placed 10/03/2022 Dr. Bailey, subsequent laser lithotripsy 10/12/2022 Dr. Taylor * Xray shows stent in place with a 4mm stone * consult Urology thank you for your help * Continue Rocephin * IV fluids: Normal saline 125 cc/hour, can be DC'd at this time * leukocytosis and fevers seems to be resolved * Blood cultures urine culture pending * pain control: P.r.n. morphine (4) Migraine headache: Qualifiers: Migraine type: without aura Status migrainosus presence: without status migrainosus Intractability: intractable Qualified Code(s): G43.019 - Migraine without aura, intractable, without status migrainosus Code(s): G43.909 - Migraine, unspecified, not intractable, without status migrainosus Status: Chronic Assessment and Plan: * Continue PRN Sumatriptan * Adjust therapy as indicated (5) Cerebral palsy: Qualifiers: Cerebral palsy type: unspecified type Qualified Code(s): G80.9 - Cerebral palsy, unspecified Code(s): G80.9 - Cerebral palsy, unspecified Status: Acute Assessment and Plan: * Unknown type * Stable (6) Seizure disorder: Code(s): G40.909 - Epilepsy, unspecified, not intractable, without status epilepticus Status: Acute Assessment and Plan: * Pt felt like she was going to have a seizure * Ativan 0.5 IV given once * Seem stable * She is not on any home medications for this (7) Anemia: Code(s): D64.9 - Anemia, unspecified Status: Acute Assessment and Plan: * H/H is trending down currently 9.6/30.1 * Continue to trend * Anemia labs in process * Appears to be on her cycle * Could also be from iron deficiency * Type unknown at this time * Transfuse as indicated Time Spent With Patient Time with patient: Greater than 35 minutes Subjective Date/time seen: 10/19/22914 Interval history: 10/19/22914 patient is very emotional today. Patient stated that she is having some left- sided lower quadrant pain along with left-sided flank pain. She is also having some notable bleeding however states that could not be or cycle as it ended 2 days ago. UA did come back contaminated will repeat at this time. KUB did show the right-sided stones. Will repeat KUB today. She denies any chest pain, shortness a breath, diarrhea or constipation. Patient did have a bowel movement her depends and had
[2022-10-19] MEDS: MORPHINE SULFATE (*CRX) 4 MG/ML INJ IV PUSH ×3 (09:22→16:28)
[2022-10-19 11:17] LABS: Iron 20 ug/dL (37-170)
[2022-10-19 11:30] LABS: Percent Iron Saturation 10 % (20-50)
[2022-10-19] MEDS: POTASSIUM CHLORIDE 20 MEQ TABLET 40 MEQ PO (11:38)
[2022-10-19 14:00] VITALS: BP 133/80; PULSE 90; RESP 18; TEMP 37.1; O2SAT 97
[2022-10-19 14:06] LABS: Transferrin 125 mg/dL (206-381)
[2022-10-19] MEDS: SODIUM CHLORIDE 0.9% IV 1,000 ML 125 ML IV CONT (19:53)
[2022-10-19 20:00] VITALS: O2SAT 97
[2022-10-19 20:42] LABS: Appearance Urine Slightly Cloudy (Clear); Bilirubin Urine Negative (Negative); Blood Urine 3+ (Negative); Color Urine Yellow (Yellow); Glucose Urine UA Negative (Negative); Ketones Urine 2+ mg/dL (Negative); Leukocyte Esterase Ur 2+ LEU/UL (Negative); Nitrate Urine Negative (Negative); Protein Urine 1+ mg/dL (Negative); Urobilinogen Urine 0.2 mg/dL (<2.0)
[2022-10-19 20:47] LABS: Bacteria Urine Trace /hpf; RBC Urine >75 /hpf (0-2); Squamous Epithelial Cell Urine Few /hpf (Few); WBC Urine >75 /hpf
[2022-10-19 20:48] LABS: Add Urine Microscopic? YES
[2022-10-19 21:21] LABS: Folic Acid 9.2 ng/mL (2.76->20)
[2022-10-19] MEDS: ONDANSETRON INJ 4 MG/2 ML VIAL IV PUSH (21:39)
[2022-10-19 21:45] VITALS: BP 122/72; PULSE 99; RESP 18; TEMP 36.9; O2SAT 95
[2022-10-20] MEDS: SODIUM CHLORIDE 0.9% IV 1,000 ML 125 ML IV CONT (05:09)
[2022-10-20 06:00] VITALS: BP 127/71; PULSE 84; RESP 18; TEMP 36.8; O2SAT 98
[2022-10-20 06:22] LABS: Basophils Absolute Auto 0.1 K/mm3 (0.0-0.1); Basophils Percent Auto 0.4 % (0.2-1.2); Eosinophils Absolute Auto 0.9 K/mm3 (0-0.3); Eosinophils Percent Auto 6.3 % (0-4.4); Hematocrit 30.4 % (37.0-47.0); Hemoglobin 9.6 g/dL (12.0-15.0); Immature Granulocyte Absolute 0.07 K/mm3 (0.00-0.031); Immature Granulocyte Percent A 0.5 % (0-0.5); Lymphocytes Percent Auto 11.6 % (18.3-44.2); Mean Corpuscular HGB Conc 31.6 g/dl (32-36); Mean Corpuscular Hemoglobin 27.7 pg (26-34); Mean Corpuscular Volume 87.6 fl (80-100); Mean Platelet Volume 10.3 fl (7.4-10.4); Monocytes Absolute Auto 1.6 K/mm3 (0.1-0.6); Monocytes Percent Auto 11.6 % (2.6-8.5); Neutrophils Absolute Auto 9.6 K/mm3 (1.3-6.7); Neutrophils Percent Auto 69.6 % (45.5-73.1); Platelet Count Result 332 k/mm3 (150-375); Red Blood Count 3.47 M/mm3 (4.2-5.4); Red Cell Distribution Width 13.3 % (11.5-14.5); White Blood Count 13.8 K/mm3 (4.5-10.0)
[2022-10-20 06:41] LABS: Alanine Aminotransferase 63 U/L (6-35); Albumin Level 3.2 g/dL (3.5-5.1); Alkaline Phosphatase 122 U/L (38-126); Anion Gap 10 mmol/L (8-16); Aspartate Amino Transferase 42 U/L (14-36); Bilirubin,Total 0.3 mg/dL (0.2-1.3); Blood Urea Nitrogen 8 mg/dL (7-17); Calcium 7.9 mg/dL (8.4-10.2); Carbon Dioxide 25 mmol/L (22-30); Chloride 100 mmol/L (98-107); Estimated CRCL calculation 48 ml/min; Estimated Glomerular Filt Rate 59; Glucose 106 mg/dL (65-110); Magnesium 2.1 mg/dL (1.6-2.3); Potassium 3.2 mmol/L (3.4-5.0); Sodium 135 mmol/L (137-145)
[2022-10-20] MEDS: POTASSIUM CHLORIDE 20 MEQ TABLET 80 MEQ PO (08:31)
[2022-10-20] MEDS: DOCUSATE SODIUM 100 MG CAPSULE PO ×2 (08:31→21:13)
[2022-10-20] MEDS: FERROUS SULFATE 324 MG TABLET PO ×2 (08:31→17:08)
[2022-10-20] MEDS: MORPHINE SULFATE (*CRX) 4 MG/ML INJ IV PUSH ×2 (09:56→15:45)
--- NOTE | 2022-10-20 10:15 | PM.IMPN ---
Progress Note: A&P Assessment and Plan (1) Sepsis: Code(s): A41.9 - Sepsis, unspecified organism Status: Acute Assessment and Plan: Meets sepsis criteria with leukocytosis (17.4), fever, tachycardia, tachypnea Source of infection appears to be renal in nature Blood cultures NGTD Urine culture contaminated Recollected UA also appears infectious Fluids can be stopped Creatinine back to baseline Continue ceftriaxone until cultures are resulted Continue to trend labs (2) UTI (urinary tract infection): Code(s): N39.0 - Urinary tract infection, site not specified Status: Acute Assessment and Plan: UA does appear to be infectious again Continue ceftriaxone at this time Culture contaminated Adjust antibiotics to sensitivities (3) Calculus of proximal right ureter: Code(s): N20.1 - Calculus of ureter Status: Acute Assessment and Plan: patient has known kidney stones, status post stent placed 10/03/2022 Dr. Bailey, subsequent laser lithotripsy 10/12/2022 Dr. Taylor Xray shows stent in place with a 4mm stone consult Urology thank you for your help Continue Rocephin IV fluids: Normal saline 125 cc/hour, can be DC'd at this time leukocytosis is trending up fever resolved Blood cultures pending urine culture pending pain control: P.r.n. morphine (4) Migraine headache: Qualifiers: Migraine type: without aura Status migrainosus presence: without status migrainosus Intractability: intractable Qualified Code(s): G43.019 - Migraine without aura, intractable, without status migrainosus Code(s): G43.909 - Migraine, unspecified, not intractable, without status migrainosus Status: Chronic Assessment and Plan: Continue PRN Sumatriptan Adjust therapy as indicated (5) Cerebral palsy: Qualifiers: Cerebral palsy type: unspecified type Qualified Code(s): G80.9 - Cerebral palsy, unspecified Code(s): G80.9 - Cerebral palsy, unspecified Status: Acute Assessment and Plan: Unknown type Stable (6) Seizure disorder: Code(s): G40.909 - Epilepsy, unspecified, not intractable, without status epilepticus Status: Acute Assessment and Plan: Pt felt like she was going to have a seizure Ativan 0.5 IV given once Seem stable She is not on any home medications for this (7) Anemia: Code(s): D64.9 - Anemia, unspecified Status: Acute Assessment and Plan: H/H is trending down currently 9.6/30.4 Continue to trend Anemia labs in process Appears to be on her cycle Start iron supplementation appears to be any iron deficiency anemia Transfuse as indicated Plan add bentyl for cramping pain Time Spent With Patient Time with patient: Greater than 35 minutes Subjective Date/time seen: 10/20/22 10:15 Interval history: 10/20/22 1015 Patient was lying flat in the bed. Patient stated that she was having pain in her right upper quadrant and stated that she feels like her kidney stone is there. She also stated that her pain was a 3/10. She would like as shower. She also stated that she vomited her whole breakfast up however the nurse reports that she had a little bit of water, after she took her pills. She denies any chest pain, shortness a breath, dizziness, lightheadedness, weakness or fatigue. I did talk to the patient about possible discharge soon after the culture comes back. Patient stated that she would like to be discharged for Thanksgiving but knows she will be back straight than after. Reiterated to her that this is not the goal and we will put her on a regimen to keep her at home. 10/19/22 0915 patient is very emotional today. Patient stated that she is having some left-sided lower quadrant pain along with left-sided flank pain. She is also having some notable b
--- NOTE | 2022-10-20 10:15 | P.PNIM_ITS ---
Progress Note: A&P Assessment and Plan (1) Sepsis: Code(s): A41.9 - Sepsis, unspecified organism Status: Acute Assessment and Plan: * Meets sepsis criteria with leukocytosis (17.4), fever, tachycardia, tachypnea * Source of infection appears to be renal in nature * Blood cultures NGTD * Urine culture contaminated * Recollected UA also appears infectious * Fluids can be stopped * Creatinine back to baseline * Continue ceftriaxone until cultures are resulted * Continue to trend labs (2) UTI (urinary tract infection): Code(s): N39.0 - Urinary tract infection, site not specified Status: Acute Assessment and Plan: * UA does appear to be infectious again * Continue ceftriaxone at this time * Culture contaminated * Adjust antibiotics to sensitivities (3) Calculus of proximal right ureter: Code(s): N20.1 - Calculus of ureter Status: Acute Assessment and Plan: * patient has known kidney stones, status post stent placed 10/03/2022 Dr. Bailey, subsequent laser lithotripsy 10/12/2022 Dr. Taylor * Xray shows stent in place with a 4mm stone * consult Urology thank you for your help * Continue Rocephin * IV fluids: Normal saline 125 cc/hour, can be DC'd at this time * leukocytosis is trending up * fever resolved * Blood cultures pending * urine culture pending * pain control: P.r.n. morphine (4) Migraine headache: Qualifiers: Migraine type: without aura Status migrainosus presence: without status migrainosus Intractability: intractable Qualified Code(s): G43.019 - Migraine without aura, intractable, without status migrainosus Code(s): G43.909 - Migraine, unspecified, not intractable, without status migrainosus Status: Chronic Assessment and Plan: * Continue PRN Sumatriptan * Adjust therapy as indicated (5) Cerebral palsy: Qualifiers: Cerebral palsy type: unspecified type Qualified Code(s): G80.9 - Cerebral palsy, unspecified Code(s): G80.9 - Cerebral palsy, unspecified Status: Acute Assessment and Plan: * Unknown type * Stable (6) Seizure disorder: Code(s): G40.909 - Epilepsy, unspecified, not intractable, without status epilepticus Status: Acute Assessment and Plan: * Pt felt like she was going to have a seizure * Ativan 0.5 IV given once * Seem stable * She is not on any home medications for this (7) Anemia: Code(s): D64.9 - Anemia, unspecified Status: Acute Assessment and Plan: * H/H is trending down currently 9.6/30.4 * Continue to trend * Anemia labs in process * Appears to be on her cycle * Start iron supplementation * appears to be any iron deficiency anemia * Transfuse as indicated Plan add bentyl for cramping pain Time Spent With Patient Time with patient: Greater than 35 minutes Subjective Date/time seen: 10/20/22 10:15 Interval history: 10/20/22 1015 Patient was lying flat in the bed. Patient stated that she was having pain in her right upper quadrant and stated that she feels like her kidney stone is there. She also stated that her pain was a 3/10. She would like as shower. She also stated that she vomited her whole breakfast up however the nurse reports that she had a little bit of water, after she took her pills.
[2022-10-20] MEDS: DICYCLOMINE HCL 10 MG CAPSULE 20 MG PO (12:39)
[2022-10-20 14:00] VITALS: BP 120/66; PULSE 86; RESP 18; TEMP 36.8; O2SAT 99
[2022-10-20] MEDS: CYCLOBENZAPRINE HCL 10 MG TABLET PO (21:13)
[2022-10-20 21:42] VITALS: BP 128/80; PULSE 87; RESP 18; TEMP 37.3; O2SAT 98
[2022-10-21 06:00] VITALS: BP 112/79; PULSE 91; RESP 18; TEMP 36.5; O2SAT 99
[2022-10-21 07:26] LABS: Basophils Absolute Auto 0.1 K/mm3 (0.0-0.1); Basophils Percent Auto 0.4 % (0.2-1.2); Eosinophils Absolute Auto 1.1 K/mm3 (0-0.3); Eosinophils Percent Auto 7.7 % (0-4.4); Hematocrit 32.6 % (37.0-47.0); Hemoglobin 10.6 g/dL (12.0-15.0); Immature Granulocyte Absolute 0.09 K/mm3 (0.00-0.031); Immature Granulocyte Percent A 0.6 % (0-0.5); Lymphocytes Absolute Auto 1.68 K/mm3 (0.9-3.2); Lymphocytes Percent Auto 11.4 % (18.3-44.2); Mean Corpuscular HGB Conc 32.5 g/dl (32-36); Mean Corpuscular Hemoglobin 27.9 pg (26-34); Mean Corpuscular Volume 85.8 fl (80-100); Mean Platelet Volume 10.4 fl (7.4-10.4); Monocytes Absolute Auto 1.4 K/mm3 (0.1-0.6); Monocytes Percent Auto 9.7 % (2.6-8.5); Neutrophils Absolute Auto 10.3 K/mm3 (1.3-6.7); Neutrophils Percent Auto 70.2 % (45.5-73.1); Platelet Count Result 430 k/mm3 (150-375); Red Cell Distribution Width 13.2 % (11.5-14.5); White Blood Count 14.7 K/mm3 (4.5-10.0)
[2022-10-21 07:36] LABS: Alanine Aminotransferase 56 U/L (6-35); Albumin Level 3.6 g/dL (3.5-5.1); Alkaline Phosphatase 136 U/L (38-126); Anion Gap 10 mmol/L (8-16); Aspartate Amino Transferase 40 U/L (14-36); Bilirubin,Total 0.4 mg/dL (0.2-1.3); Blood Urea Nitrogen 8 mg/dL (7-17); Calcium 8.5 mg/dL (8.4-10.2); Carbon Dioxide 28 mmol/L (22-30); Chloride 99 mmol/L (98-107); Estimated CRCL calculation 52 ml/min; Estimated Glomerular Filt Rate > 60; Glucose 141 mg/dL (65-110); Magnesium 2.3 mg/dL (1.6-2.3); Sodium 137 mmol/L (137-145)
[2022-10-21] MEDS: FERROUS SULFATE 324 MG TABLET PO ×2 (08:49→16:36)
[2022-10-21] MEDS: polyethylene glycoL 3350 17 GM POWD.PACK PO (08:49)
[2022-10-21] MEDS: DOCUSATE SODIUM 100 MG CAPSULE PO ×2 (08:49→20:23)
--- NOTE | 2022-10-21 09:15 | P.PNIM_ITS ---
Progress Note: A&P Assessment and Plan (1) Sepsis: Code(s): A41.9 - Sepsis, unspecified organism Status: Acute Assessment and Plan: * Meets sepsis criteria with leukocytosis (17.4), fever, tachycardia, tachypnea * Source of infection appears to be renal in nature * Blood cultures NGTD * Urine culture contaminated * Recollected UA also appears infectious * Fluids can be stopped * Creatinine back to baseline * Continue ceftriaxone until cultures are resulted * Continue to trend labs (2) UTI (urinary tract infection): Code(s): N39.0 - Urinary tract infection, site not specified Status: Acute Assessment and Plan: * 2nd UA does appear to be infectious * Continue ceftriaxone at this time * first Culture contaminated * Adjust antibiotics to sensitivities (3) Calculus of proximal right ureter: Code(s): N20.1 - Calculus of ureter Status: Acute Assessment and Plan: * patient has known kidney stones, status post stent placed 10/03/2022 Dr. Bailey, subsequent laser lithotripsy 10/12/2022 Dr. Taylor * Xray shows stent in place with a 4mm stone * consult Urology thank you for your help * Continue Rocephin, however, WBC is still rising * leukocytosis is continuing trending up, currently 14.7 * fever resolved * Blood cultures pending * urine culture pending * pain control: P.r.n. morphine (4) Migraine headache: Qualifiers: Intractability: intractable Migraine type: without aura Status migrainosus presence: without status migrainosus Qualified Code(s): G43.019 - Migraine without aura, intractable, without status migrainosus Code(s): G43.909 - Migraine, unspecified, not intractable, without status migrainosus Status: Chronic Assessment and Plan: * Continue PRN Sumatriptan * Adjust therapy as indicated (5) Cerebral palsy: Qualifiers: Cerebral palsy type: unspecified type Qualified Code(s): G80.9 - Cerebral palsy, unspecified Code(s): G80.9 - Cerebral palsy, unspecified Status: Acute Assessment and Plan: * Unknown type * Stable (6) Seizure disorder: Code(s): G40.909 - Epilepsy, unspecified, not intractable, without status epilepticus Status: Acute Assessment and Plan: * Pt felt like she was going to have a seizure * Ativan 0.5 IV given once * Seem stable * She is not on any home medications for this (7) Anemia: Code(s): D64.9 - Anemia, unspecified Status: Acute Assessment and Plan: * H/H is trending down currently 10.6/32.6 * Continue to trend * Anemia labs show iron deficiency * Appears to be on her cycle * Start iron supplementation * appears to be any iron deficiency anemia * Transfuse as indicated Plan add bentyl for cramping pain Time Spent With Patient Time with patient: Greater than 35 minutes Subjective Date/time seen: 10/21/22914 Interval history: 10/21/22914 Patient was lying in bed. She is complaining of sweats and fevers. She is also complaining of major constipation and states that she has not had a bowel movement since last week. Did offer her suppository however she refused that. White count keeps going up. She is complaining of abdominal pain mostly on the left side today. She also has CVA tenderness on the right.
--- NOTE | 2022-10-21 09:15 | PM.IMPN ---
Progress Note: A&P Assessment and Plan (1) Sepsis: Code(s): A41.9 - Sepsis, unspecified organism Status: Acute Assessment and Plan: Meets sepsis criteria with leukocytosis (17.4), fever, tachycardia, tachypnea Source of infection appears to be renal in nature Blood cultures NGTD Urine culture contaminated Recollected UA also appears infectious Fluids can be stopped Creatinine back to baseline Continue ceftriaxone until cultures are resulted Continue to trend labs (2) UTI (urinary tract infection): Code(s): N39.0 - Urinary tract infection, site not specified Status: Acute Assessment and Plan: 2nd UA does appear to be infectious Continue ceftriaxone at this time first Culture contaminated Adjust antibiotics to sensitivities (3) Calculus of proximal right ureter: Code(s): N20.1 - Calculus of ureter Status: Acute Assessment and Plan: patient has known kidney stones, status post stent placed 10/03/2022 Dr. Bailey, subsequent laser lithotripsy 10/12/2022 Dr. Taylor Xray shows stent in place with a 4mm stone consult Urology thank you for your help Continue Rocephin, however, WBC is still rising leukocytosis is continuing trending up, currently 14.7 fever resolved Blood cultures pending urine culture pending pain control: P.r.n. morphine (4) Migraine headache: Qualifiers: Intractability: intractable Migraine type: without aura Status migrainosus presence: without status migrainosus Qualified Code(s): G43.019 - Migraine without aura, intractable, without status migrainosus Code(s): G43.909 - Migraine, unspecified, not intractable, without status migrainosus Status: Chronic Assessment and Plan: Continue PRN Sumatriptan Adjust therapy as indicated (5) Cerebral palsy: Qualifiers: Cerebral palsy type: unspecified type Qualified Code(s): G80.9 - Cerebral palsy, unspecified Code(s): G80.9 - Cerebral palsy, unspecified Status: Acute Assessment and Plan: Unknown type Stable (6) Seizure disorder: Code(s): G40.909 - Epilepsy, unspecified, not intractable, without status epilepticus Status: Acute Assessment and Plan: Pt felt like she was going to have a seizure Ativan 0.5 IV given once Seem stable She is not on any home medications for this (7) Anemia: Code(s): D64.9 - Anemia, unspecified Status: Acute Assessment and Plan: H/H is trending down currently 10.6/32.6 Continue to trend Anemia labs show iron deficiency Appears to be on her cycle Start iron supplementation appears to be any iron deficiency anemia Transfuse as indicated Plan add bentyl for cramping pain Time Spent With Patient Time with patient: Greater than 35 minutes Subjective Date/time seen: 10/21/22914 Interval history: 10/21/22914 Patient was lying in bed. She is complaining of sweats and fevers. She is also complaining of major constipation and states that she has not had a bowel movement since last week. Did offer her suppository however she refused that. White count keeps going up. She is complaining of abdominal pain mostly on the left side today. She also has CVA tenderness on the right. urine cultures still pending. She denied any chest pain, shortness a breath, nausea, vomiting, diarrhea, chills. 10/20/22 1015 Patient was lying flat in the bed. Patient stated that she was having pain in her right upper quadrant and stated that she feels like her kidney stone is there. She also stated that her pain was a 3/10. She would like as shower. She also stated that she vomited her whole breakfast up however the nurse reports that she had a little bit of water, after she took her pills. She denies any chest pain, shortness a breath, dizziness, lightheadedness, w
[2022-10-21] MEDS: ONDANSETRON INJ 4 MG/2 ML VIAL IV PUSH (11:08)
[2022-10-21] MEDS: SUMAtriptan SUCCINATE 25 MG TABLET 50 MG PO (11:47)
[2022-10-21] MEDS: MORPHINE SULFATE (*CRX) 4 MG/ML INJ IV PUSH ×2 (12:54→20:20)
[2022-10-21 14:00] VITALS: BP 119/75; PULSE 91; RESP 18; TEMP 36.9; O2SAT 96
[2022-10-21] MEDS: METOCLOPRAMIDE HCL INJ 10 MG/2 ML VIAL IV PUSH (20:21)
[2022-10-21] MEDS: CYCLOBENZAPRINE HCL 10 MG TABLET PO (20:23)
[2022-10-21] MEDS: SULFAMETHOXAZOLE/TRIMETHOPRIM 800/160 MG DS TABLET 1 TAB PO (20:26)
[2022-10-21] MEDS: DICYCLOMINE HCL 10 MG CAPSULE 20 MG PO (20:30)
[2022-10-21 21:34] VITALS: BP 122/68; PULSE 85; RESP 18; O2SAT 100
[2022-10-22 06:00] VITALS: BP 106/66; PULSE 84; RESP 18; TEMP 36.3; O2SAT 100
[2022-10-22 06:05] LABS: Basophils Absolute Auto 0.1 K/mm3 (0.0-0.1); Basophils Percent Auto 0.4 % (0.2-1.2); Hematocrit 32.7 % (37.0-47.0); Hemoglobin 10.4 g/dL (12.0-15.0); Immature Granulocyte Absolute 0.06 K/mm3 (0.00-0.031); Immature Granulocyte Percent A 0.5 % (0-0.5); Lymphocytes Absolute Auto 1.94 K/mm3 (0.9-3.2); Mean Corpuscular HGB Conc 31.8 g/dl (32-36); Mean Corpuscular Hemoglobin 27.8 pg (26-34); Mean Corpuscular Volume 87.4 fl (80-100); Mean Platelet Volume 10.7 fl (7.4-10.4); Monocytes Absolute Auto 1.2 K/mm3 (0.1-0.6); Monocytes Percent Auto 9.8 % (2.6-8.5); Neutrophils Absolute Auto 7.9 K/mm3 (1.3-6.7); Neutrophils Percent Auto 65.3 % (45.5-73.1); Platelet Count Result 450 k/mm3 (150-375); Red Blood Count 3.74 M/mm3 (4.2-5.4); Red Cell Distribution Width 13.3 % (11.5-14.5); White Blood Count 12.1 K/mm3 (4.5-10.0)
[2022-10-22] MEDS: polyethylene glycoL 3350 17 GM POWD.PACK PO (08:44)
[2022-10-22] MEDS: DOCUSATE SODIUM 100 MG CAPSULE PO (08:45)
[2022-10-22] MEDS: DICYCLOMINE HCL 10 MG CAPSULE 20 MG PO (08:45)
[2022-10-22] MEDS: FERROUS SULFATE 324 MG TABLET PO (08:45)
[2022-10-22] MEDS: SULFAMETHOXAZOLE/TRIMETHOPRIM 800/160 MG DS TABLET 1 TAB PO (08:45)
[2022-10-22 08:46] LABS: Alanine Aminotransferase 51 U/L (6-35); Albumin Level 3.6 g/dL (3.5-5.1); Alkaline Phosphatase 103 U/L (38-126); Anion Gap 9 mmol/L (8-16); Aspartate Amino Transferase 44 U/L (14-36); Bilirubin,Total 0.6 mg/dL (0.2-1.3); Blood Urea Nitrogen 10 mg/dL (7-17); Calcium 8.5 mg/dL (8.4-10.2); Carbon Dioxide 28 mmol/L (22-30); Chloride 97 mmol/L (98-107); Estimated CRCL calculation 48 ml/min; Estimated Glomerular Filt Rate 59; Glucose 104 mg/dL (65-110); Magnesium 2.3 mg/dL (1.6-2.3); Potassium 4.4 mmol/L (3.4-5.0); Sodium 134 mmol/L (137-145)
--- NOTE | 2022-10-22 09:00 | P.DS_ITS ---
DS: Admitting Diagnosis Discharge Date 10/22/22 0900 Admitting Diagnosis right renal stone, UTI , Sepsis DS: Discharge Diagnosis Discharge Diagnosis (1) Sepsis: Code(s): A41.9 - Sepsis, unspecified organism Status: Acute Assessment and Plan: * Meets sepsis criteria with leukocytosis (17.4), fever, tachycardia, tachypnea * Source of infection appears to be renal in nature * Blood cultures NGTD * Urine culture contaminated * Recollected UA also appears infectious * Fluids can be stopped * Creatinine back to baseline * Continue ceftriaxone until cultures are resulted * Continue to trend labs (2) UTI (urinary tract infection): Code(s): N39.0 - Urinary tract infection, site not specified Status: Acute Assessment and Plan: * 2nd UA does appear to be infectious * Continue ceftriaxone at this time * first Culture contaminated * Adjust antibiotics to sensitivities (3) Calculus of proximal right ureter: Code(s): N20.1 - Calculus of ureter Status: Acute Assessment and Plan: * patient has known kidney stones, status post stent placed 10/03/2022 Dr. Bailey, subsequent laser lithotripsy 10/12/2022 Dr. Taylor * Xray shows stent in place with a 4mm stone * consult Urology thank you for your help * Continue Rocephin, however, WBC is still rising * leukocytosis is continuing trending up, currently 14.7 * fever resolved * Blood cultures pending * urine culture pending * pain control: P.r.n. morphine (4) Migraine headache: Qualifiers: Intractability: intractable Migraine type: without aura Status migrainosus presence: without status migrainosus Qualified Code(s): G43.019 - Migraine without aura, intractable, without status migrainosus Code(s): G43.909 - Migraine, unspecified, not intractable, without status migrainosus Status: Chronic Assessment and Plan: * Continue PRN Sumatriptan * Adjust therapy as indicated (5) Cerebral palsy: Qualifiers: Cerebral palsy type: unspecified type Qualified Code(s): G80.9 - Cerebral palsy, unspecified Code(s): G80.9 - Cerebral palsy, unspecified Status: Acute Assessment and Plan: * Unknown type * Stable (6) Seizure disorder: Code(s): G40.909 - Epilepsy, unspecified, not intractable, without status epilepticus Status: Acute Assessment and Plan: * Pt felt like she was going to have a seizure * Ativan 0.5 IV given once * Seem stable * She is not on any home medications for this (7) Anemia: Code(s): D64.9 - Anemia, unspecified Status: Acute Assessment and Plan: * H/H is trending down currently 10.6/32.6 * Continue to trend * Anemia labs show iron deficiency * Appears to be on her cycle * Start iron supplementation * appears to be any iron deficiency anemia * Transfuse as indicated Plan add bentyl for cramping pain DS: Summary Hospital Course Hospital Course: Patient is a 51-year-old female with a past medical history cerebral palsy, cervical cancer, GERD, migraines, pud, kidney stones who presented the ED with fever, nausea and vomiting. Patient has a kidney stone that was noted recently in the month. Patient has had multiple hospitalizations for renal stones. Stent was placed by Dr. Bailey on 10/03 and crystal
--- NOTE | 2022-10-22 09:00 | PM.DS ---
DS: Admitting Diagnosis Discharge Date 10/22/22 0900 Admitting Diagnosis right renal stone, UTI , Sepsis DS: Discharge Diagnosis Discharge Diagnosis (1) Sepsis: Code(s): A41.9 - Sepsis, unspecified organism Status: Acute Assessment and Plan: Meets sepsis criteria with leukocytosis (17.4), fever, tachycardia, tachypnea Source of infection appears to be renal in nature Blood cultures NGTD Urine culture contaminated Recollected UA also appears infectious Fluids can be stopped Creatinine back to baseline Continue ceftriaxone until cultures are resulted Continue to trend labs (2) UTI (urinary tract infection): Code(s): N39.0 - Urinary tract infection, site not specified Status: Acute Assessment and Plan: 2nd UA does appear to be infectious Continue ceftriaxone at this time first Culture contaminated Adjust antibiotics to sensitivities (3) Calculus of proximal right ureter: Code(s): N20.1 - Calculus of ureter Status: Acute Assessment and Plan: patient has known kidney stones, status post stent placed 10/03/2022 Dr. Bailey, subsequent laser lithotripsy 10/12/2022 Dr. Brandon Kohliay shows stent in place with a 4mm stone consult Urology thank you for your help Continue Rocephin, however, WBC is still rising leukocytosis is continuing trending up, currently 14.7 fever resolved Blood cultures pending urine culture pending pain control: P.r.n. morphine (4) Migraine headache: Qualifiers: Intractability: intractable Migraine type: without aura Status migrainosus presence: without status migrainosus Qualified Code(s): G43.019 - Migraine without aura, intractable, without status migrainosus Code(s): G43.909 - Migraine, unspecified, not intractable, without status migrainosus Status: Chronic Assessment and Plan: Continue PRN Sumatriptan Adjust therapy as indicated (5) Cerebral palsy: Qualifiers: Cerebral palsy type: unspecified type Qualified Code(s): G80.9 - Cerebral palsy, unspecified Code(s): G80.9 - Cerebral palsy, unspecified Status: Acute Assessment and Plan: Unknown type Stable (6) Seizure disorder: Code(s): G40.909 - Epilepsy, unspecified, not intractable, without status epilepticus Status: Acute Assessment and Plan: Pt felt like she was going to have a seizure Ativan 0.5 IV given once Seem stable She is not on any home medications for this (7) Anemia: Code(s): D64.9 - Anemia, unspecified Status: Acute Assessment and Plan: H/H is trending down currently 10.6/32.6 Continue to trend Anemia labs show iron deficiency Appears to be on her cycle Start iron supplementation appears to be any iron deficiency anemia Transfuse as indicated Plan add bentyl for cramping pain DS: Summary Hospital Course Hospital Course: Patient is a 51-year-old female with a past medical history cerebral palsy, cervical cancer, GERD, migraines, pud, kidney stones who presented the ED with fever, nausea and vomiting. Patient has a kidney stone that was noted recently in the month. Patient has had multiple hospitalizations for renal stones. Stent was placed by Dr. Bailey on 10/03 and patient underwent a lithotripsy on 10/12/2022. Upon arrival was noted that patient did have a 4 mm stone and UA did appear infectious. Patient was placed on ceftriaxone however white count continued to go up. Patient did meet sepsis criteria upon arrival with leukocytosis, fever tachycardia and tachypnea. Patient was given IV fluids for resuscitation. UA was repeated however did come back again contaminated. at that time antibiotics were changed to Bactrim p.o.. White count is stable today at 12.1. Patient denies any complaints and states she feels extremely well. She denies any
== END 2022-10-22 10:05 | disposition home or self-care (01) | DRG 463 ==
LOC: ANHED 22:52 → ANH3MEDSUR 23:29
PROVIDERS: Emergency Medicine; Admitting Provider Student in an Organized Health Care Education/Training Program; Emergency Provider Emergency Medicine; PCP Family Medicine; Visit Provider Nurse Practitioner
DX: N39.0 Urinary tract infection, site not specified (principal); N20.1 Calculus of ureter; D50.9 Iron deficiency anemia, unspecified; E78.5 Hyperlipidemia, unspecified; G80.9 Cerebral palsy, unspecified; G40.909 Epilepsy, unspecified, not intractable, without status epilepticus; G43.019 Migraine without aura, intractable, without status migrainosus; K21.9 Gastro-esophageal reflux disease without esophagitis; M19.90 Unspecified osteoarthritis, unspecified site; Z87.442 Personal history of urinary calculi; Z85.41 Personal history of malignant neoplasm of cervix uteri; Z87.11 Personal history of peptic ulcer disease; Z86.718 Personal history of other venous thrombosis and embolism; Z20.822 Contact with and (suspected) exposure to COVID-19; Z96.0 Presence of urogenital implants; Z79.82 Long term (current) use of aspirin
CPT/HCPCS: 36415; 74018; 80053; 81001; 82607; 82728; 82746; 83540; 83550; 83690; 83735; 84466; 85025; 87040; 87086; 87088; 87636; 96361; 96365; 96367; 96374; 96375; 96376; 99285; A9270; G0378; G0379; J0696; J2060; J2270; J2405; J2765; J7030

== ENCOUNTER 2022-10-26 07:24 | Outpatient (CLI) | payer OTHER, SELFPAY ==
--- NOTE | ~2022-10-26 | XR_ITS ---
XR abdomen/kub 1V DATE: 10/26/2022 08:17 INDICATION: Ureteral calculus follow-up TECHNIQUE: 2 AP views of abdomen COMPARISON: 10/19/2022 KUB 10/13/2022 CT abdomen pelvis with IV contrast material FINDINGS: Faintly calcified calculi overlie the mid and lower aspect of the right kidney. No obvious ureteral calcified calculus. Right internal urinary stent is present in expected position, unchanged since 10/19/2022. No evidence of bowel obstruction. The psoas shadows are intact. No visceromegaly is detected. Included skeletal structures are unremarkable. IMPRESSION: Right internal urinary stent Right nephrolithiasis Little interval change is evident compared to 10/19/2022 Reviewed, dictated and finalized at [facility]. Reviewed, dictated and finalized at location B. 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
[2022-10-26 08:23] LABS: Basophils Absolute Auto 0.1 K/mm3 (0.0-0.1); Basophils Percent Auto 0.7 % (0.2-1.2); Eosinophils Percent Auto 9.2 % (0-4.4); Immature Granulocyte Absolute 0.03 K/mm3 (0.00-0.031); Immature Granulocyte Percent A 0.3 % (0-0.5); Lymphocytes Absolute Auto 2.05 K/mm3 (0.9-3.2); Lymphocytes Percent Auto 18.8 % (18.3-44.2); Mean Corpuscular HGB Conc 32.4 g/dl (32-36); Mean Corpuscular Hemoglobin 27.8 pg (26-34); Mean Corpuscular Volume 85.8 fl (80-100); Mean Platelet Volume 10.1 fl (7.4-10.4); Monocytes Percent Auto 9.1 % (2.6-8.5); Neutrophils Absolute Auto 6.8 K/mm3 (1.3-6.7); Neutrophils Percent Auto 61.9 % (45.5-73.1); Platelet Count Result 608 k/mm3 (150-375); Red Blood Count 4.31 M/mm3 (4.2-5.4); Red Cell Distribution Width 13.4 % (11.5-14.5); White Blood Count 10.9 K/mm3 (4.5-10.0)
[2022-10-26 08:34] LABS: Alanine Aminotransferase 66 U/L (6-35); Alkaline Phosphatase 102 U/L (38-126); Anion Gap 10 mmol/L (8-16); Aspartate Amino Transferase 57 U/L (14-36); Bilirubin,Total 0.2 mg/dL (0.2-1.3); Blood Urea Nitrogen 12 mg/dL (7-17); Calcium 9.1 mg/dL (8.4-10.2); Carbon Dioxide 27 mmol/L (22-30); Chloride 99 mmol/L (98-107); Estimated Glomerular Filt Rate 44; Glucose 101 mg/dL (65-110); Sodium 136 mmol/L (137-145)
== END 2022-10-26 07:25 | disposition home or self-care (01) ==
PROVIDERS: PCP Family Medicine; Referring Provider Physician Assistant; Visit Provider Family Medicine
DX: N39.0 Urinary tract infection, site not specified (principal); N20.1 Calculus of ureter; A41.9 Sepsis, unspecified organism; D64.9 Anemia, unspecified
CPT/HCPCS: 36415; 74018; 80053; 85025

== ENCOUNTER 2022-11-05 11:20 | Outpatient (CLI) | payer OTHER, SELFPAY ==
--- NOTE | ~2022-11-05 | CT_ITS ---
EXAMINATION: CT abdomen pelvis wo con DATE: 11/05/2022 12:00 INDICATION: Right ureteral stone TECHNIQUE: Computed tomography (CT) of the abdomen and pelvis was performed without intravenous contr ast. Automated exposure control and iterative reconstruction technique were employed. Exam dose: 176 .76 mGy-cm total exam DLP. COMPARISON: 11/05/2022 KUB 10/13/2022 CT abdomen pelvis with IV contrast material FINDINGS: The lung bases are clear of infiltrate or consolidation. Normal heart size. No pericardial or pleural effusion. Small sliding hiatal hernia. The gallbladder is contracted. The liver, spleen, pancreas and the bile ducts and pancreatic duct are unremarkable. Normal morphology of the adrenal glands. Multiple bilateral renal cysts are demonstrated to better advantage on 10/13/2022 examination with IV contrast material. There is interval placement of a right internal urinary stent since 10/13/2022, proximal pigtail in t he right renal pelvis, distal pigtail in the lateral aspect of the urinary bladder. There is evidence of an approximately 3 x 5.4 mm calculus adjacent to the stent at the very proximal right ureter. Multiple nonobstructing calculi are noted within the mid and lower right kidney within dilated calyces. Approximately 2.1 cm partially exophytic hypoattenuating lesion is noted at the lateral superior aspe ct of the right kidney. There is suggestion of a 2.9 cm hypoattenuating partially exophytic lesion of the lateral mid to upper right kidney. Smaller cysts were identified at these locations as recently as 10/13/2022. Consider labral infection or abscess formation, hematoma. There is perinephric fat str anding and surrounding fascial thickening of the right kidney, suggesting pyelonephritis. Urinary bladder is relatively evacuated and unremarkable. Uterus and adnexal areas are unremarkable. Normal caliber of the abdominal aorta. No abdominal or pelvic adenopathy or ascites. Normal appendix. Diverticulosis of the left and right colon; no CT evidence of diverticulitis. No bowel obstruction or free air is detected. Included skeletal structures are unremarkable. IMPRESSION: Interval placement of right internal urinary stent; there is persistent prominent right hydronephrosis and a calculus at the very proximal right ureter as well as multiple nonobstructing ri ght renal stones Interval enlargement of some hypoattenuating lesions of the kidneys since 10/13/2022. Consider absces s or hematoma Perinephric stranding and surrounding fascial thickening of the right kidney, suggesting possible bethel lonephritis Bilateral renal cysts Diverticulosis of the colon; no CT evidence of diverticulitis Small sliding hiatal hernia Reviewed, dictated and finalized at [facility]. Reviewed, dictated and finalized at location B. 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 Consider abscess or hematoma Perinephric stranding and surrounding fascial thickening of the right kidney, s uggesting possible pyelonephritis Bilateral renal cysts Diverticulosis of the colon; no CT evidence of diverticulitis Small sliding hiatal hernia
--- NOTE | ~2022-11-05 | XR_ITS ---
XR abdomen/kub 1V DATE: 11/05/2022 11:52 INDICATION: Right ureteral stone TECHNIQUE: AP view COMPARISON: 10/26/2022 KUB FINDINGS: Right internal urinary stent is unchanged in position since 10/26/2022. There are multiple small stones overlying the lower pole the right kidney Very small faintly calcified stones cannot be excluded along the proximal right stent area. Noncontra st CT abdomen pelvis examination would be more sensitive for detection and localization of urinary tr act calculi, particularly considering the relatively faint calcification and small size some of the s tones. The psoas shadows are intact. No evidence of bowel obstruction. Included skeletal structures are unre markable. 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 Reviewed, dictated and finalized at location B. ULTING SME IMPRESSION: Possible Steinstrasse at proximal right ureter at L3-4 area; noncon trast CT abdomen pelvis examination would be much more accurate sensitive for d etection of small faintly calcified stones Right internal urinary stent in expected position, unchanged since 10/26/2022 Right nephrolithiasis
== END 2022-11-05 11:21 | disposition home or self-care (01) ==
PROVIDERS: PCP Family Medicine; Visit Provider Urology
DX: N20.1 Calculus of ureter (principal)
CPT/HCPCS: 74018; 74176

== ENCOUNTER 2022-12-15 07:49 | Outpatient (CLI) | payer OTHER, SELFPAY ==
[2022-12-15 08:41] LABS: Basophils Absolute Auto 0.1 K/mm3 (0.0-0.1); Basophils Percent Auto 0.6 % (0.2-1.2); Eosinophils Absolute Auto 0.5 K/mm3 (0-0.3); Eosinophils Percent Auto 4.6 % (0-4.4); Hematocrit 37.8 % (37.0-47.0); Hemoglobin 11.7 g/dL (12.0-15.0); Immature Granulocyte Absolute 0.05 K/mm3 (0.00-0.031); Immature Granulocyte Percent A 0.4 % (0-0.5); Lymphocytes Absolute Auto 3.23 K/mm3 (0.9-3.2); Lymphocytes Percent Auto 28.3 % (18.3-44.2); Mean Corpuscular Volume 87.1 fl (80-100); Mean Platelet Volume 9.9 fl (7.4-10.4); Monocytes Absolute Auto 0.8 K/mm3 (0.1-0.6); Monocytes Percent Auto 7.3 % (2.6-8.5); Neutrophils Absolute Auto 6.7 K/mm3 (1.3-6.7); Neutrophils Percent Auto 58.8 % (45.5-73.1); Platelet Count Result 357 k/mm3 (150-375); Red Blood Count 4.34 M/mm3 (4.2-5.4); Red Cell Distribution Width 14.5 % (11.5-14.5); White Blood Count 11.4 K/mm3 (4.5-10.0)
[2022-12-15 09:02] LABS: Alanine Aminotransferase 19 U/L (6-35); Alkaline Phosphatase 73 U/L (38-126); Anion Gap 4 mmol/L (8-16); Aspartate Amino Transferase 21 U/L (14-36); Bilirubin,Total 0.2 mg/dL (0.2-1.3); Blood Urea Nitrogen 14 mg/dL (7-17); Calcium 8.4 mg/dL (8.4-10.2); Carbon Dioxide 31 mmol/L (22-30); Chloride 103 mmol/L (98-107); Estimated Glomerular Filt Rate > 60; Glucose 96 mg/dL (65-110); Potassium 3.5 mmol/L (3.4-5.0); Sodium 138 mmol/L (137-145)
== END 2022-12-15 07:50 | disposition home or self-care (01) ==
LOC: ANHLAB 07:50
PROVIDERS: PCP Family Medicine; Visit Provider Family Medicine
DX: D64.9 Anemia, unspecified (principal); D72.829 Elevated white blood cell count, unspecified; R74.8 Abnormal levels of other serum enzymes
CPT/HCPCS: 36415; 80053; 85025

== ENCOUNTER 2022-12-17 13:50 | Outpatient (CLI) | payer OTHER, SELFPAY ==
--- NOTE | ~2022-12-17 | US_ITS ---
EXAMINATION: US retroperitoneal comp DATE: 12/17/2022 14:34 INDICATION: Right ureteral stone. TECHNIQUE: Multiple ultrasound grayscale images of the kidneys were obtained. COMPARISON: CT abdomen and pelvis 11/05/2022 FINDINGS: The right kidney measures 11.4 x 4.6 x 5.4 cm. The left kidney measures 11.6 x 6.0 x 6.3 cm. The kidn eys demonstrate normal parenchymal echogenicity. There are cysts in the kidneys measuring up to 2.0 c m on the right. There is no hydronephrosis. The bladder is normal. IMPRESSION: 1. Normal kidney sizes. No hydronephrosis. Reviewed, dictated and finalized at location A. NER
== END 2022-12-17 13:51 | disposition home or self-care (01) ==
PROVIDERS: PCP Family Medicine; Visit Provider Urology
DX: N20.1 Calculus of ureter (principal)
CPT/HCPCS: 76770

== ENCOUNTER 2023-03-03 07:20 | Outpatient (CLI) | payer OTHER, SELFPAY ==
[2023-03-03 08:05] LABS: Basophils Absolute Auto 0.1 K/mm3 (0.0-0.1); Basophils Percent Auto 0.6 % (0.2-1.2); Eosinophils Absolute Auto 0.5 K/mm3 (0-0.3); Eosinophils Percent Auto 5.9 % (0-4.4); Hematocrit 42.8 % (37.0-47.0); Hemoglobin 13.6 g/dL (12.0-15.0); Immature Granulocyte Absolute 0.02 K/mm3 (0.00-0.031); Immature Granulocyte Percent A 0.2 % (0-0.5); Lymphocytes Absolute Auto 2.63 K/mm3 (0.9-3.2); Lymphocytes Percent Auto 29.7 % (18.3-44.2); Mean Corpuscular HGB Conc 31.8 g/dl (32-36); Mean Corpuscular Hemoglobin 28.4 pg (26-34); Mean Corpuscular Volume 89.4 fl (80-100); Mean Platelet Volume 9.8 fl (7.4-10.4); Monocytes Absolute Auto 0.7 K/mm3 (0.1-0.6); Monocytes Percent Auto 7.3 % (2.6-8.5); Neutrophils Percent Auto 56.3 % (45.5-73.1); Platelet Count Result 304 k/mm3 (150-375); Red Blood Count 4.79 M/mm3 (4.2-5.4); Red Cell Distribution Width 12.9 % (11.5-14.5); White Blood Count 8.9 K/mm3 (4.5-10.0)
[2023-03-03 08:09] LABS: Alanine Aminotransferase 16 U/L (6-35); Albumin Level 4.2 g/dL (3.5-5.1); Alkaline Phosphatase 64 U/L (38-126); Anion Gap 3 mmol/L (8-16); Aspartate Amino Transferase 19 U/L (14-36); Bilirubin,Total 0.4 mg/dL (0.2-1.3); Blood Urea Nitrogen 16 mg/dL (7-17); Calcium 8.6 mg/dL (8.4-10.2); Carbon Dioxide 34 mmol/L (22-30); Chloride 103 mmol/L (98-107); Cholesterol 219 mg/dL (0-200); Estimated Glomerular Filt Rate > 60; Glucose 97 mg/dL (65-110); HDL Direct 41 mg/dL; Potassium 4.1 mmol/L (3.4-5.0); Sodium 140 mmol/L (137-145); Triglycerides 134 mg/dL (<150)
[2023-03-03 08:19] LABS: LDL Cholesterol Direct 125 mg/dL
[2023-03-03 09:36] LABS: Vitamin D 25 Hydroxy 36.8 ng/mL
== END 2023-03-03 07:21 | disposition home or self-care (01) ==
LOC: ANHLAB 07:21
PROVIDERS: PCP Family Medicine; Visit Provider Nurse Practitioner Family
DX: Z00.00 Encounter for general adult medical examination without abnormal findings (principal); D64.9 Anemia, unspecified; E55.9 Vitamin D deficiency, unspecified; G40.909 Epilepsy, unspecified, not intractable, without status epilepticus; Z13.220 Encounter for screening for lipoid disorders
CPT/HCPCS: 36415; 80053; 80061; 82306; 84443; 85025

== ENCOUNTER 2023-06-07 15:20 | Emergency (ER) | payer OTHER, SELFPAY ==
--- NOTE | ~2023-06-07 | CT_ITS ---
EXAMINATION: CT abdomen pelvis wo con DATE: 06/07/2023 17:35 INDICATION: Left flank pain. TECHNIQUE: Computed tomography (CT) of the abdomen and pelvis was performed without intravenous contr ast. Automated exposure control and iterative reconstruction technique were employed. The dose-length product was 280.86 mGy-cm. COMPARISON: CT abdomen and pelvis 11/05/2022 FINDINGS: The visualized portions of the lung bases demonstrate mild atelectasis. No pleural effusion . The heart size is normal. No pericardial effusion. The liver, gallbladder, spleen, pancreas, and ad renal glands are normal. There is a 3 mm stone in right kidney. There is a 3 mm stone in proximal rig ht ureter. There is mild right hydronephrosis. Left kidney is normal. There is diverticulosis of the colon without evidence of diverticulitis. There are no dilated loops of bowel. The appendix is normal . There are no pathologically enlarged lymph nodes. There is no free intraperitoneal fluid. There is mild lumbar spondylosis. IMPRESSION: 1. 3 mm stone in proximal right ureter with mild right hydronephrosis. 2. Small nonobstructing right kidney stone. Reviewed, dictated and finalized at location E.
[2023-06-07 15:22] VITALS: BP 132/75; PULSE 98; RESP 20; TEMP 36.9; O2SAT 98
[2023-06-07 15:59] LABS: Basophils Percent Auto 0.4 % (0.2-1.2); Eosinophils Absolute Auto 0.4 K/mm3 (0-0.3); Eosinophils Percent Auto 3.9 % (0-4.4); Hematocrit 42.2 % (37.0-47.0); Hemoglobin 13.7 g/dL (12.0-15.0); Immature Granulocyte Absolute 0.03 K/mm3 (0.00-0.031); Immature Granulocyte Percent A 0.3 % (0-0.5); Lymphocytes Absolute Auto 2.24 K/mm3 (0.9-3.2); Mean Corpuscular HGB Conc 32.5 g/dl (32-36); Mean Corpuscular Hemoglobin 29.7 pg (26-34); Mean Corpuscular Volume 91.5 fl (80-100); Monocytes Absolute Auto 0.6 K/mm3 (0.1-0.6); Monocytes Percent Auto 6.9 % (2.6-8.5); Neutrophils Absolute Auto 5.7 K/mm3 (1.3-6.7); Neutrophils Percent Auto 63.5 % (45.5-73.1); Platelet Count Result 267 k/mm3 (150-375); Red Blood Count 4.61 M/mm3 (4.2-5.4); Red Cell Distribution Width 13.2 % (11.5-14.5)
[2023-06-07 16:21] LABS: Alanine Aminotransferase 20 U/L (6-35); Albumin Level 4.3 g/dL (3.5-5.1); Alkaline Phosphatase 61 U/L (38-126); Anion Gap 3 mmol/L (8-16); Aspartate Amino Transferase 21 U/L (14-36); Bilirubin,Total 0.4 mg/dL (0.2-1.3); Blood Urea Nitrogen 13 mg/dL (7-17); Calcium 9.4 mg/dL (8.4-10.2); Carbon Dioxide 34 mmol/L (22-30); Chloride 102 mmol/L (98-107); Estimated CRCL calculation 79 ml/min; Estimated Glomerular Filt Rate > 60; Glucose 116 mg/dL (65-110); Potassium 3.3 mmol/L (3.4-5.0); Sodium 139 mmol/L (137-145)
[2023-06-07 16:30] LABS: Appearance Urine Cloudy (Clear); Bacteria Urine 2+ /hpf; Bilirubin Urine Negative (Negative); Blood Urine 3+ (Negative); Calcium Oxalate Crystals Urine Present /hpf; Color Urine Dark Yellow (Yellow); Glucose Urine UA Negative (Negative); Hyaline Casts Urine Present /lpf; Ketones Urine Trace mg/dL (Negative); Leukocyte Esterase Ur Trace LEU/UL (Negative); Nitrate Urine Negative (Negative); Non Pathogenic Casts 0-2; Protein Urine 1+ mg/dL (Negative); RBC Urine 21-50 /hpf (0-2); Specific Grav Ur 1.028 (1.001-1.035); Squamous Epithelial Cell Urine Many /hpf (Few); pH Urine 5.5 (5.0-9.0)
[2023-06-07 16:32] LABS: Add Urine Microscopic? YES
[2023-06-07 16:40] LABS: Pregnancy On Board Control Positive; Urine Pregnancy Test Negative
--- NOTE | 2023-06-07 17:05 | ED.ABDPAIN ---
HPI - Abdominal Pain General Chief Complaint: Urogenital-Female Stated Complaint: flank pain Time Seen by Provider: 06/07/23 16:26 History of Present Illness HPI narrative: This is a 52-year-old female with past history of recurrent kidney stones, who presents to the emergency department complaining of left-sided flank pain for the past day consistent with stone. She describes the pain as dull and intermittently sharp, rated 4/10 at baseline including increasing to 8/10. There are no obvious aggravating or alleviating factors. She denies fevers or vomiting, though has some nausea. Related Data Home Medications Medication Instructions Recorded Confirmed cyclobenzaprine 10 mg tablet 10 mg PO TID PRN Muscle Pain 04/08/22 03/02/23 aspirin 81 mg tablet 81 mg PO DAILY PRN pain 03/02/23 03/02/23 Allergies Allergy/AdvReac Type Severity Reaction Status Date / Time NSAIDS (Non-Steroidal Allergy Severe SWELLING Verified 03/08/23 13:16 Anti-Inflamma IN LEGS venom-honey bee Allergy Swelling Verified 03/08/23 13:16 venom-wasp Allergy Swelling Verified 03/08/23 13:16 Cat Dander Allergy Severe chest Uncoded 03/08/23 13:16 congestion Molds and Smuts Allergy Severe chest Uncoded 03/08/23 13:16 congestion Review of Systems Review of Systems: CONSTITUTIONAL: Denies fever, chills, or sweats. CARDIOVASCULAR: Denies chest pain, palpitations, or edema. RESPIRATORY: Denies cough or dyspnea. GASTROINTESTINAL: Left flank pain, nausea denies vomiting, or diarrhea. GENITOURINARY: Denies dysuria or hematuria. SKIN: Denies rash or itching. MUSCULOSKELETAL: Denies back pain, joint pain, or myalgia. NEUROLOGIC: Denies headache, numbness, dizziness, or weakness. PSYCHIATRIC: Denies anxiety or depression. [facility] Past Medical History Medical History Abnormal urinalysis Arthritis BMI 27.0-27.9,adult Cerebral palsy Cervical cancer DVT (deep vein thrombosis) in Elevated LFTs Environmental allergies External hemorrhoid GERD without esophagitis Hydroureteronephrosis Hyperlipidemia Kidney stone on right side Migraine headache Obstruction of right ureteropelvic junction due to stone Patellar tendonitis Renal calculus Right ureteral stone Seizure disorder Stomach ulcer Urinary tract infection Wears glasses Surgical History Surgical History H/O LEEP History of cystoscopy History of lithotripsy (~03/2022) History of lithotripsy Merigold teeth extracted (~1995) Family History Family History Grandparent Cerebrovascular accident Family history of heart disease in male family member before age 55 Mother Cerebrovascular accident Father Alzheimer disease Social History Social History Social History: Surrogate medical decision maker: Renan Pierre, significant other. Code status: Full code. Smoking status: Never smoker Second hand tobacco smoke exposure: No Alcohol intake: former Drinks per week: 1 Alcohol use details: PT STATES WAS ABOUT 1 DRINK A WEEK - STATES LAST DRINK WAS 04/18/22 AND IS QUITING DRINKING FOR GOOD Substance use: never Substance use type: does not use Lack of Transportation: No Lack of Food: Never True Current Housing: I Have Housing Concerned About Future Housing: No Difficulty Paying Gas/Electric Bills: No Difficulty Paying for Meds: No Currently Unemployed: No Education: Associate Degree Difficulty w/ Childcare or Family Care: No Living arrangements: with friend(s) Additional living arrangements comments: PT LIVES WITH SIGNIFICANT OTHER Occupation/Education: other Additional occupation/education comments: Disabled Gender identity (if verbalized by the patient): Female Spiritual care concerns: No Exam Narrative: HEYDI
[2023-06-07] MEDS: ONDANSETRON INJ 4 MG/2 ML VIAL IV PUSH (17:13)
[2023-06-07] MEDS: MORPHINE SULFATE (*CRX) 4 MG/ML INJ IV PUSH (17:14)
[2023-06-07 18:19] VITALS: BP 133/85; PULSE 75; RESP 18; O2SAT 100
== END 2023-06-07 18:23 | disposition home or self-care (01) ==
PROVIDERS: Emergency Provider Preventive Medicine Aerospace Medicine; PCP Family Medicine
DX: N20.0 Calculus of kidney (principal); R10.9 Unspecified abdominal pain; E78.5 Hyperlipidemia, unspecified; Z86.718 Personal history of other venous thrombosis and embolism; Z85.41 Personal history of malignant neoplasm of cervix uteri
CPT/HCPCS: 36415; 74176; 80053; 81001; 81025; 85025; 87086; 87088; 96374; 96375; 99284; J2270; J2405

== ENCOUNTER 2023-06-10 16:01 | Outpatient (CLI) | payer OTHER, SELFPAY ==
[2023-06-10 17:17] LABS: Alanine Aminotransferase 22 U/L (6-35); Albumin Level 4.2 g/dL (3.5-5.1); Alkaline Phosphatase 60 U/L (38-126); Anion Gap 3 mmol/L (8-16); Aspartate Amino Transferase 56 U/L (14-36); Bilirubin,Total 0.4 mg/dL (0.2-1.3); Blood Urea Nitrogen 16 mg/dL (7-17); Calcium 9.3 mg/dL (8.4-10.2); Carbon Dioxide 36 mmol/L (22-30); Chloride 96 mmol/L (98-107); Estimated Glomerular Filt Rate > 60; Glucose 112 mg/dL (65-110); Potassium 3.4 mmol/L (3.4-5.0); Sodium 135 mmol/L (137-145)
== END 2023-06-10 16:02 | disposition home or self-care (01) ==
LOC: ANHGOSHLAB 16:02
PROVIDERS: PCP Family Medicine; Visit Provider Family Medicine
DX: E87.6 Hypokalemia (principal)
CPT/HCPCS: 36415; 80053

== ENCOUNTER 2023-06-10 16:44 | Outpatient (CLI) | payer OTHER, SELFPAY ==
--- NOTE | ~2023-06-10 | XR_ITS ---
EXAMINATION: XR abdomen/kub 1V DATE: 06/10/2023 16:56 INDICATION: Calculus of kidney. TECHNIQUE: A supine view of the abdomen was obtained. COMPARISON: Abdomen radiograph 11/05/2022, CT abdomen and pelvis 06/07/2023 FINDINGS: There are no dilated loops of bowel. There is a small volume of stool in the colon. IMPRESSION: 1. No visible urolithiasis. Reviewed, dictated and finalized at location E. IMPRESSION: 1. No visible urolithiasis.
== END 2023-06-10 16:45 | disposition home or self-care (01) ==
LOC: ANHIMG 16:45
PROVIDERS: PCP Family Medicine; Visit Provider Family Medicine
DX: N20.0 Calculus of kidney (principal)
CPT/HCPCS: 36415; 74018; 80053

== ENCOUNTER 2023-09-07 09:38 | Outpatient (CLI) | payer OTHER, SELFPAY ==
[2023-09-07 18:46] LABS: Alanine Aminotransferase 14 U/L (6-35); Albumin Level 4.2 g/dL (3.5-5.1); Alkaline Phosphatase 69 U/L (38-126); Anion Gap 5 mmol/L (8-16); Aspartate Amino Transferase 22 U/L (14-36); Bilirubin,Total 0.6 mg/dL (0.2-1.3); Blood Urea Nitrogen 18 mg/dL (7-17); Calcium 8.9 mg/dL (8.4-10.2); Carbon Dioxide 32 mmol/L (22-30); Chloride 101 mmol/L (98-107); Estimated Glomerular Filt Rate > 60; Glucose 83 mg/dL (65-110); Potassium 4.4 mmol/L (3.4-5.0); Sodium 138 mmol/L (137-145)
[2023-09-07 20:32] LABS: Hemoglobin A1C 5.3 % (<5.7)
== END 2023-09-07 09:39 | disposition home or self-care (01) ==
LOC: ANHGOSHLAB 09:39
PROVIDERS: PCP Family Medicine; Visit Provider Family Medicine
DX: R74.8 Abnormal levels of other serum enzymes (principal); R73.9 Hyperglycemia, unspecified
CPT/HCPCS: 36415; 80053; 83036

== ENCOUNTER 2023-09-07 10:18 | Outpatient (CLI) | payer OTHER, SELFPAY ==
--- NOTE | ~2023-09-07 | XR_ITS ---
Lumbosacral Spine: AP, oblique, and lateral views Clinical History: Pain Findings: The normal lordotic curve is maintained. The vertebral bodies and posterior elements are i ntact. The intervertebral disc spaces are preserved. The sacroiliac joints are normally outlined. Impression: No significant abnormality. Reviewed, dictated and finalized at [facility]. Impression: No significant abnormality.
== END 2023-09-07 10:19 | disposition home or self-care (01) ==
LOC: ANHIMG 10:22
PROVIDERS: PCP Family Medicine; Visit Provider Family Medicine
DX: M54.9 Dorsalgia, unspecified (principal); G89.29 Other chronic pain
CPT/HCPCS: 36415; 72110; 80053; 83036

== ENCOUNTER 2023-09-15 07:53 | Outpatient (RCR) | payer OTHER, SELFPAY ==
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
--- NOTE | 2023-09-15 09:58 | OPREHPOC ---
Outpatient Therapy Plan of Care This is a Multidisciplinary Plan of Care that may contain components documented by all disciplines (PT, OT, and ST.) PT Problem 1 PT Problem #1 Knowledge Deficit PT Goal 1 Goal Pt to be IND with issued HEP Target Visit 4 PT Problem 2 PT Problem #2 Pain PT Goal 1 Goal Pt to report back pain no greater than 3/10 in the last week. Target Visit 4 PT Goal 2 Goal Pt to report 50% improvement in overall symptoms Target Visit 4 PT Problem 3 PT Problem #3 Impaired Range of Motion PT Goal 1 Goal Pt to demonstrate active lumbar ROM without an increase in pain Target Visit 4 PT Problem 4 PT Problem #4 Impaired Gait PT Goal 1 Goal Pt to ambulate with a upright trunk. Target Visit 4
--- NOTE | 2023-09-20 09:57 | PTOPDC ---
Assessment and note entered by Bj Molina, PT, DPT Evaluation Information Assessment Status Discharge - Pt Not Present Diagnosis low back pain Onset 1 week Subjective Information Pt called today and cancelled all of her remaining appointments and requested to be discharged. She states she is having a family emergency, will need to find a job, and will not have time to continue with therapy. Assessment PT Clinical Summary Esther was evaluated on 09/15/23 and did not complete any subsequent treatments. She will be discharged per her request.
--- NOTE | 2023-09-20 11:58 | PCPTNOTE ---
Pt cancelled today and all remaining appts due personal conflict.
--- NOTE | 2023-09-29 09:33 | PCPTNOTE ---
Patient canceled this date due to transportation issues.
== END 2023-09-29 10:37 | disposition home or self-care (01) ==
LOC: ANHGOSHPT 07:53
PROVIDERS: PCP Family Medicine; Visit Provider Family Medicine
DX: M54.9 Dorsalgia, unspecified (principal); G89.29 Other chronic pain
CPT/HCPCS: 97014; 97110; 97161; G0283

== ENCOUNTER 2024-01-06 08:48 | Outpatient (CLI) | payer OTHER, SELFPAY ==
--- NOTE | ~2024-01-06 | MM_ITS ---
EXAMINATION: MM screening andrew BI w krysta HISTORY: Screening mammogram TECHNIQUE: Craniocaudal and mediolateral oblique 3-D tomosynthesis images were obtained and synthetic 2-D images were generated. CAD analysis was submitted and interpreted. COMPARISON: 04/24/2022, 01/23/2020, 10/28/2017 bilateral screening mammogram examinations BREAST PARENCHYMAL COMPOSITION: The breasts are heterogeneously dense, which may obscure small masses . FINDINGS: There is no evidence of suspicious mass, calcification, or architectural distortion to sugg est malignancy in either breast. There has been no suspicious interval change. IMPRESSION: 1. No mammographic evidence of malignancy. 2. Recommend routine screening mammography in one year. BI-RADS Category 1: Negative Reviewed, dictated and finalized at location A. 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
== END 2024-01-06 08:49 | disposition home or self-care (01) ==
PROVIDERS: PCP Family Medicine; Visit Provider Nurse Practitioner Obstetrics & Gynecology
DX: Z12.31 Encounter for screening mammogram for malignant neoplasm of breast (principal)
CPT/HCPCS: 77063; 77067

== ENCOUNTER 2024-03-10 08:04 | Outpatient (CLI) | payer OTHER, SELFPAY ==
[2024-03-10 08:46] LABS: Basophils Absolute Auto 0.1 K/mm3 (0.0-0.1); Eosinophils Absolute Auto 0.3 K/mm3 (0-0.3); Eosinophils Percent Auto 4.5 % (0-4.4); Hematocrit 43.8 % (37.0-47.0); Immature Granulocyte Absolute 0.02 K/mm3 (0.00-0.031); Immature Granulocyte Percent A 0.3 % (0-0.5); Lymphocytes Absolute Auto 1.95 K/mm3 (0.9-3.2); Lymphocytes Percent Auto 28.1 % (18.3-44.2); Mean Corpuscular Hemoglobin 29.8 pg (26-34); Mean Corpuscular Volume 93.2 fl (80-100); Mean Platelet Volume 10.6 fl (7.4-10.4); Monocytes Absolute Auto 0.5 K/mm3 (0.1-0.6); Monocytes Percent Auto 7.1 % (2.6-8.5); Neutrophils Absolute Auto 4.1 K/mm3 (1.3-6.7); Platelet Count Result 293 k/mm3 (150-375); Red Cell Distribution Width 11.9 % (11.5-14.5); White Blood Count 6.9 K/mm3 (4.5-10.0)
[2024-03-10 09:03] LABS: Alanine Aminotransferase 11 U/L (6-35); Albumin Level 4.6 g/dL (3.5-5.1); Alkaline Phosphatase 63 U/L (38-126); Anion Gap 6 mmol/L (4-12); Aspartate Amino Transferase 17 U/L (14-36); Bilirubin,Total 0.4 mg/dL (0.2-1.3); Blood Urea Nitrogen 17 mg/dL (7-17); Calcium 9.3 mg/dL (8.4-10.2); Carbon Dioxide 31 mmol/L (22-30); Chloride 105 mmol/L (98-107); Cholesterol 204 mg/dL (0-200); Estimated Glomerular Filt Rate > 60; Glucose 98 mg/dL (65-110); HDL Direct 47 mg/dL; Potassium 3.9 mmol/L (3.4-5.0); Sodium 142 mmol/L (137-145); Triglycerides 133 mg/dL (<150)
[2024-03-10 09:14] LABS: LDL Cholesterol Direct 115 mg/dL
[2024-03-10 09:29] LABS: Hemoglobin A1C 5.1 % (<5.7)
[2024-03-10 09:43] LABS: Vitamin D 25 Hydroxy 35.7 ng/mL
== END 2024-03-10 08:05 | disposition home or self-care (01) ==
LOC: ANHLAB 08:05
PROVIDERS: PCP Family Medicine; Visit Provider Family Medicine
DX: Z00.00 Encounter for general adult medical examination without abnormal findings (principal); G40.909 Epilepsy, unspecified, not intractable, without status epilepticus; Z79.899 Other long term (current) drug therapy; E78.5 Hyperlipidemia, unspecified; E53.8 Deficiency of other specified B group vitamins; E55.9 Vitamin D deficiency, unspecified; G43.909 Migraine, unspecified, not intractable, without status migrainosus; R73.9 Hyperglycemia, unspecified
CPT/HCPCS: 36415; 80053; 80061; 82306; 82607; 83036; 84443; 85025

== ENCOUNTER 2024-04-13 06:40 | Outpatient (CLI) | payer OTHER, SELFPAY ==
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
== END 2024-04-13 06:41 | disposition home or self-care (01) ==
PROVIDERS: PCP Family Medicine; Visit Provider Student in an Organized Health Care Education/Training Program
DX: G40.909 Epilepsy, unspecified, not intractable, without status epilepticus (principal); G80.9 Cerebral palsy, unspecified
CPT/HCPCS: 95816

== ENCOUNTER 2024-08-16 06:43 | Outpatient (CLI) | payer OTHER, SELFPAY ==
--- NOTE | ~2024-08-16 | MR_ITS ---
MRI of the brain Clinical History: Migraines, balance loss Technique: Axial and sagittal T1-weighted images were acquired. These were followed by axial T2-weigh whit, diffusion weighted, gradient, and FLAIR images. COMPARISON: 04/28/2013 Findings: No abnormal signal seen in the brain parenchyma. No acute infarct, intracranial hemorrhage, or mass lesion. Ventricles and subarachnoid spaces are unremarkable. Orbits are unremarkable. Paranasal sinuses and m astoid air cells are clear. Major intracranial flow voids are intact. Sagittal midline structures are intact. IMPRESSION: Normal exam. Reviewed, dictated and finalized at location M. IMPRESSION: Normal exam.
== END 2024-08-16 06:44 | disposition home or self-care (01) ==
PROVIDERS: PCP Family Medicine; Visit Provider Psychiatry & Neurology Neurology
DX: G40.909 Epilepsy, unspecified, not intractable, without status epilepticus (principal); G80.9 Cerebral palsy, unspecified
CPT/HCPCS: 70551

== ENCOUNTER 2025-03-14 08:29 | Outpatient (CLI) | payer OTHER, SELFPAY ==
--- NOTE | ~2025-03-14 | MM_ITS ---
EXAMINATION: MM screening andrew BI w krysta HISTORY: Screening TECHNIQUE: Craniocaudal and mediolateral oblique 3-D tomosynthesis images were obtained and synthetic 2-D images were generated. CAD analysis was submitted and interpreted. COMPARISON: Comparison to multiple prior studies sequentially, with oldest reviewed study dated 10/04. BREAST PARENCHYMAL COMPOSITION: Dense: The breasts are heterogeneously dense, which may obscure small masses FINDINGS: There is developing asymmetry medially in the left breast on CC view, middle third. The rig ht breast is stable without evidence for malignancy. IMPRESSION: 1. Developing left breast asymmetries medially on CC view, middle third. 2. Additional mammographic views and possible breast ultrasound are recommended. BI-RADS Category 0: Incomplete: Needs additional imaging evaluation. Reviewed, dictated and finalized at location [] IMPRESSION: 1. Developing left breast asymmetries medially on CC view, middle third. 2. Additional mammographic views and possible breast ultrasound are recommended . BI-RADS Category 0: Incomplete: Needs additional imaging evaluation.
--- OUTSIDE RECORDS SUMMARY | 2025-03-14 08:48 | XMS_ITS | Data Portability ---
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 Patient will come back in a year unless there are new symptoms. [email or web address] Not available 09/09/2023 09:47:07 11/30/2024 11/30/2024 Annual gynecological exam performed. Patient will come back in a year unless there are new symptoms. [email or web address] Not available 11/30/2024 10:26:22 Plan of Treatment Reminders Order Date Submit Date Provider Last Modified By Organization Details Last Modified Time Details Appointments FOLLOW UP 2024 08:45A Flor ABREU MD Not available Not available Not available Lab None recorded. Referral None recorded. Procedures None recorded. Surgeries None recorded. Imaging US, transvagi nal 2024 025 [email or web address] [place] [facility] [address], [place], [address], 02/17/2025 12:14:32 US, pelvis 2024 025 [email or web address] [place], [address], [place], [address], 12/17/2024 10:25:12 US, transvagi nal 2024 025 shant [place], [place], [address], 12/17/2024 10:25:12 US, pelvis, complete 2024 025 [facility], [address], [place], [address], 12/11/2024 04:01:49 MAMMO, screening , digital, bilateral 2024 025 [facility], [address], [place], [address], 02/13/2025 04:09:53 MAMMO, screening , bilateral [address], [address], [place], [address], 05/23/2024 16:16:47 Medication Orders None recorded. Patient TargetsNo targets recorded. Patient InstructionsNo instructions recorded. Reason for Referral None Reported. 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 Elect primo velasco shola d by Panda santos, Sivil ay, CT on 09/14 at 7:39 PM ----- ----- ----- ----- ----- ----- ----- ----- ----- ----- ----- ----- ----- ----- ----- ----- ----- ---- HPV RESUL TS: HPV mRNA E6/E7 : No HPV mRNA Detec whit NOTE: This high risk HPV mRNA assay detec ts fourt een high- risk HPV types (16, 18, 31, 33, 35, 39, 45, 51, 52, 56, 58, 59, 66, 68) witho ut diffe renti ation . COMME NT: This speci men was revie wed by a Cytot echno logis t and/o r Patho logis t (as indic ated in this repor t) after evalu ation using the Thinp rep Imagi ng Syste m. CLINI ROSELYN INFOR MATIO N: Menst rual Statu s: LMP (if appli cable ): Clini roselyn Histo ry/Pr eviou s Pap: Type of Neopl rubin (if appli cable ): Signi fican t Clini roselyn Findi ngs: Other Histo ry: Hormo nadege (if appli cable ): PAP EDUCA DIOR L NOTE: The Pap Test is a scree katelyn test with an inher ent false negat gianna rate. Liqui d-bas ed sampl ing may decre ase, but will not elimi stan, false negat gianna resul ts. A negat gianna resul t does not precl ude the prese nce and/o r devel opmen t of disea se, since the prese nce of abnor mal cells in the sampl e depen ds on the locat ion of the lesio n and sampl ing techn ique. Roxy nued regul ar scree katelyn is the best metho d of cance r preve ntion . If repor whit cytol ogic findi ng do not corre late with physi roselyn and/o r histo rical findi ngs, fur er inves tigat ion is recom evaristo d, as clini rhoda duenas nted. Not Available [facility] (Lab) [address], [place], [address], 09/14/2023 20:42:48 09/09/20 23 09/09/2023 TRICH OMONA S VAGIN JUICE (RRNA ) trichomonas vaginalis ribosomal RNA (rrna) Negati ve negati ve Not Available [facility] (Lab) [address], [place], [address], 09/14/2023 20:42:49 09/09/20 23 09/09/2023 CT/GC (LANDRY) , THINP REP VIAL chlamydia trachomatis, PCR Negati ve negati ve Not Available [facility] (Lab) [address], [place], [address], 09/14/2023 20:42:49 09/09/20 23 09/09/2023 CT/GC (LANDRY) , THINP REP VIAL neisseria gonorrhoeae, PCR Negati ve negati ve Not Available [facility] (Lab) [address], [place], [address], 09/14/2023 20:42:49 11/30/19 25 11/30/2024 IMAGE GUIDE D PAP AND HPV REGAR DLESS image guided Pap, HPV regardless of Pap result SEE RESULT S BELOW CASE REPOR T: Cytol ogy Gynec ologi roselyn Repor t Case: [id number] Autho ke g Provi laura: Melani Moses NP Colle cted: 11/30 1129 Order ing Locat ion: [place] Patho logy Recei karla: 12/01 0849 First Scree n: Larisa Michele , CT Rescr een: Kaitlin Tatum Specmaya men: Ethel zepeda Pap - Image d, Cervi x STATE MENT OF ADEQU ACY: Satis facto ry for evalu ation Trans forma tion zone compo nent prese nt ----- ----- ----- ----- ----- ----- ----- ----- ----- ----- ----- ----- ----- ----- ----- ----- ----- ---- FINAL DIAGN OSIS: Negat gianna for Intra epith elial Lesio jamari or Roberto minor (NIL) . Elect primo reilly by Kaitlin holloway on 2024 at 1958 DIRECTOR OF ROOMS ----- ----- ----- ----- ----- ----- ----- ----- ----- ----- ----- ----- ----- ----- ----- ----- ----- ---- HPV RESUL TS: HPV mRNA E6/E7 : No HPV mRNA Detec whit NOTE: This high risk HPV mRNA assay detec ts fourt een high- risk HPV types (16, 18, 31, 33, 35, 39, 45, 51, 52, 56, 58, 59, 66, 68) witho ut diffe renti ation . COMME NT: This speci men was revie wed by a Cytot echno logis t and/o r Patho logis t (as indic ated in this repor t) after evalu ation using the Thinp rep Imagi ng Syste m. CLINI ROSELYN INFOR MATIO N: Menst rual Statu s: LMP (if appli cable ): Clini roselyn Histo ry/Pr eviou s Pap: Type of Neopl rubin (if appli cable ): Signi fican t Clini roselyn Findi ngs: Other Histo ry: Hormo nadege (if appli cable ): PAP EDUCA DIOR L NOTE: The Pap Test is a scree katelyn test with an inher ent false negat gianna rate. Liqui d-bas ed sampl ing may decre ase, but will not elimi stan, false negat gianna resul ts. A negat gianna resul t does not precl ude the prese nce and/o r devel opmen t of disea se, since the prese nce of abnor mal cells in the sampl e depen ds on the locat ion of the lesio n and sampl ing techn ique. Roxy nued regul ar scree katelyn is the best metho d of cance r preve ntion . If repor whit cytol ogic findi ng do not corre late with physi roselyn and/o r histo rical findi ngs, furth er inves tigat ion is recom evaristo d, as clini rhoda duenas nted. Not Available [facility] (Lab) [address], [place], [address], 12/08/2024 21:05:28 12/15/19 25 12/15/2024 US, pelvi s No observ ation record ed. [email or web address] [address], [place], [address], 12/22/2024 14:52:07 12/15/19 25 12/15/2024 US, pelvi s No observ ation record ed. [facility] [address] [facility] [address], [place], [address], 12/15/2024 18:02:40 12/15/19 25 12/15/2024 US, trans vagin al No observ ation record ed. [facility] [address] [facility] [facility] [address], [place], [address], 12/15/2024 18:02:49 02/17/20 25 02/16/2025 US, trans vagin al No observ ation record ed. [facility] [address], [place], [address], 02/16/2025 18:14:53 02/17/20 25 02/16/2025 US, trans vagin al No observ ation record ed. [email or web address] [address], [place], [address], 02/27/2025 17:58:30 Result Notes None recorded. Problems Name Problem SNOMED Code Status Onset Date Resolution Date Notes Provider Name and Address Organization Details Recorded Time Hearing loss [id number] Active 021 Payton benitez [facility] 09:56:05 Knee pain Active 021 Payton benitez, [facility] 09:56:29 Problem Notes None recorded. Procedures Surgical History Date Name Laterality Status Provider Name and Address Organization Details Recorded Time 11/30/19 25 Date of Last [facility]ear [facility] 03/09/2025 10:22:47 04/24/20 22 Date of Last Mammogram completed Tgflorence Colvin [facility] 09/09/2023 09:50:38 04/09/20 22 extracorporeal shockwave lithotripsy of calculus of kidney completed Payton Rivera [facility] 04/24/2022 12:37:26 08/07/20 21 I&D completed Med Abreu MD [address], [place], [address], [facility] 08/07/2021 20:12:16 07/11/20 21 LEEP completed Med Abreu MD [address], [place], [address], [facility] 07/11/2021 12:08:36 07/11/20 21 LEEP completed Camelia Dean [facility] 07/11/2021 09:52:47 06/29/20 21 Date of Last Colonoscopy completed Payton Rivera [facility] 04/24/2022 12:40:38 06/29/20 21 Colonoscopy completed Paytno Rivera [facility] 04/24/2022 12:38:42 05/20/20 21 Colposcopy completed Rekha Mott CNM [address], [place], [address], [place] [facility] 05/20/2021 10:17:26 11/29/18 93 extraction of wisdom tooth completed Payton Rivera [facility] 04/24/2021 14:58:22 Imaging Results Imaging Date Name Status LastModified by Organization Details LastModified Time 12/15/2024 US, pelvis completed [address], [place], [address], 12/22/2024 14:52:07 12/15/2024 US, pelvis completed fátima Jama [address], [place], [address], 12/15/2024 18:02:40 12/15/2024 US, transvaginal completed fátima adler [address], [place], [address], 12/15/2024 18:02:49 02/16/2025 US, transvaginal completed fátima adler [address], [place], [address], 02/16/2025 18:14:53 02/16/2025 US, transvaginal completed [email or web address] [address], [place], [address], 02/27/2025 17:58:30 Procedure Notes None recorded. Medical Equipment None Reported. Allergies Allergen ID Allergen Name Allergen Category Reaction Reaction Severity Criticality Documentation Date Start Date Code Code System Note Provider Name and Address Organization Details Recorded Time naproxen medicatio n Not available Not available Not available 04/24/2021 7258 RxNorm Payton benitez, [facility] 09:55:45 Medications Name Sig Start Date Stop Date Status Note LastModified by Organization Details LastModified Time cyclobenzap rine 10 mg tablet TAKE 1 TABLET BY MOUTH THREE TIMES DAILY NEEDED FOR MUSCLE PAIN. active Not Available Not Available No t Available amoxicillin 500 mg capsule TAKE 1 CAPSULE BY MOUTH EVERY 6 HOURS UNTIL GONE 09/09 completed Not Available Not Available Not Available cetirizine 10 mg tablet TAKE 1 TABLET BY MOUTH ONCE DAILY NEEDED FOR CONGESTIO N 11/30 completed Not Available Not Available Not Available valacyclovi r 1 gram tablet TAKE 1 TABLET BY MOUTH EVERY 12 HOURS 04/24 completed Not Available Not Available Not Available hydrocodone 5 mg-acetamin ophen 325 mg tablet TAKE 1 TO 2 TABLETS BY MOUTH EVERY 6 HOURS NEEDED FOR PAIN 09/09 completed Not Available Not Available Not Available sumatriptan 50 mg tablet TAKE ONE TABLET AT ONSET OF HEADHACE, MAY REPEAT IN 2 HOURS IF NEEDED active Not Available Not Available No t Available ciprofloxac in 500 mg tablet TAKE 1 TABLET BY MOUTH EVERY 12 HOURS 04/24 completed Not Available Not Available Not Available sulfamethox azole 800 mg-trimetho prim 160 mg tablet TAKE 1 TABLET BY MOUTH EVERY 12 HOURS 09/09 completed Not Available Not Available Not Available omeprazole 40 mg capsule,del ayed release TAKE 1 CAPSULE BY MOUTH ONCE DAILY 09/09 completed Not Available Not Available Not Available tramadol 50 mg tablet TAKE 1 TABLET BY MOUTH EVERY 12 HOURS NEEDED FOR PAIN 09/09 completed Not Available Not Available Not Available tamsulosin 0.4 mg capsule TAKE 1 CAPSULE BY MOUTH ONCE DAILY 09/09 completed Not Available Not Available Not Available pantoprazol e 40 mg tablet,hermelindo yed release TAKE 1 TABLET BY MOUTH ONCE DAILY IN THE MORNING 09/09 completed Not Available Not Available Not Available hydrocortis one 2.5 % topical cream APPLY CREAM TO AFFECTED AREA TWICE DAILY 04/24 completed Not Available Not Available Not Available SSD 1 % topical cream APPLY A 1 16 INCH THICK LAYER TO ENTIRE BURN AREA TWICE DAILY 04/24 completed Not Available Not Available Not Available oxybutynin chloride 5 mg tablet 09/09 completed Not Available Not Available Not Available cefdinir 300 mg capsule TAKE 1 CAPSULE BY MOUTH EVERY 12 HOURS FOR 14 DAYS 09/09 completed Not Available Not Available Not Available loratadine 10 mg tablet TAKE 1 TABLET BY MOUTH ONCE DAILY 11/30 completed Not Available Not Available Not Available nitrofurant oin monohydrate /macrocryst als 100 mg capsule TAKE 1 CAPSULE BY MOUTH EVERY 12 HOURS FOR 5 DAYS WITH MEALS FOOD 09/09 completed Not Available Not Available Not Available FeroSul 325 mg (65 mg iron) tablet TAKE 1 TABLET BY MOUTH ONCE DAILY 09/09 completed Not Available Not Available Not Available Vitals Date Recorded Body height Body mass index (BMI) Body weight Systolic blood pressure Diastolic blood pressure Provider Name and Address Organization Details Last Updated DateTime 09/09/2023 161.29 cm 22.8 kg/m2 21951.6 g 121 mm[Hg] 79 mm[Hg] [facility] 3 09:47:57 Date Recorded Body height Body mass index (BMI) Body weight Systolic blood pressure Diastolic blood pressure Provider Name and Address Organization Details Last Updated DateTime 11/30/2024 161.29 cm 25.7 kg/m2 13522.52 g 111 mm[Hg] 73 mm[Hg] Melyhenrry Avendanoney [facility] 5 10:35:00 Date Recorded Body height Body mass index (BMI) Body weight Systolic blood pressure Diastolic blood pressure Provider Name and Address Organization Details Last Updated DateTime 03/09/2025 161.29 cm 25.6 kg/m2 31148.08 g 125 mm[Hg] 84 mm[Hg] Tg Colvin [facility] 5 10:22:30 Social History Question Answer Notes LastModified by Organizat ion Details LastModified Time Tobacco Smoking Status Never Smoker Payton benitez [facility] 04/24/2022 12:37:01 Do You Have An Advance Directive? No [email or web address] Information n ot available 04/24/2021 What Is Your Level Of Alcohol Consumption? Occasional [email or web address] Information not available 04/24/2021 How Many Years Have You Consumed Alcohol? 27 [email or web address] Information not available 04/24/2021 Are You Blind Or Do You Have Difficulty Seeing? No Information n ot available 04/24/2021 What Is Your Level Of Caffeine Consumption? None [email or web address] Information not available 04/24/2021 How Much Tobacco Do You Chew? None [email or web address] Information not available 04/24/2021 In The 14 Days Before Symptom Onset, Have You Had Close Contact With A Laboratory-confirm ed COVID-19 While That Case Was Ill? No [email or web address] Information n ot available 04/24/2021 In The 14 Days Before Symptom Onset, Have You Had Close Contact With A Person Who Is Under Investigation For COVID-19 While That Person Was Ill? No [email or web address] Information not available 04/24/2021 Have You Been To An Area Known To Be High Risk For COVID-19? No [email or web address] Information not available 11/30/2024 Are You Deaf Or Do You Have Serious Difficulty Hearing? No [email or web address] Information not available 04/24/2021 What Type Of Diet Are You Following? REGULAR [email or web address] Information n ot available 04/24/2021 What Is The Highest Grade Or Level Of School You Have Completed Or The Highest Degree You Have Received? LL70725-7 [email or web address] Information not available 04/24/2021 What Is Your Occupation? Disabled [email or web address] Information not available 04/24/2021 Are There Any Guns Present In Your Home? No [email or web address] Information not available 04/24/2021 Do You Use Protection During Sex? No [email or web address] Information not available 04/24/2021 Do You Use Your Seat Belt Or Car Seat Routinely? Yes [email or web address] Information not available 04/24/2021 Do You Have Smoke And Carbon Monoxide Detectors In Your Home? Yes [email or web address] Information not available 04/24/2021 How Much Tobacco Do You Smoke? No [email or web address] Information not available 04/24/2021 Do You Feel Stressed (tense, Restless, Nervous, Or Anxious, Or Unable To Sleep At Night)? [id number] Information not available 04/24/2021 Do You Use Any Illicit Or Recreational Drugs? No [email or web address] Information not available 04/24/2021 Do You Use Sunscreen Routinely? No [email or web address] Information not available 04/24/2021 Has Tobacco Cessation Counseling Been Provided? No Information not available 04/24/2022 Have You Used IV Drugs? No Information not available 04/24/2021 Do You Or Have You Ever Used Any Other Forms Of Tobacco Or Nicotine? No [email or web address] Information not available 04/24/2022 Sex: Unknown Functional Status Question Answer Note LastModified by Organizat ion Details LastModified Time Do you have difficulty walking or climbing stairs? No [email or web address] Information not available 04/24/2022 Are you able to walk? YESASSIST [email or web address] Information not available 04/24/2021 Are you able to care for yourself? Yes [email or web address] Information not available 04/24/2022 Do you have difficulty dressing or bathing? No [email or web address] Information not available 04/24/2022 What is your exercise level? None [email or web address] Information not available 04/24/2021 Mental Status None recorded. Family History Relationship Description Onset Age of this Age Resolved Age Notes LastModified by Organization Details LastModified Time Unspecified Relation Family history unknown [email or web address] Not available 2020 08:44:42 Unspecified Relation Family history unknown [email or web address] Not available 2020 08:44:42 Medical History Condition Response Allergies (Food, seasonal, environmental ) Y Other Y Breast Cancer N Drug/Latex Allergies/Reactions Y Blood Transfusion N Dermatologic Disorders N Lung Disease N Defects or Inherited Disease N Breast Problem N Gestational Diabetes N Hematologic disorders N Anesthesia Complications N History of STI Y Deep Vein Thrombosis N Polycystic ovary syndrome N Anxiety Disorder Y Autoimmune disease N Arthritis N Infertility N Polyps N Acid Reflux (GERD) Y History of abnormal pap Y Cancer N Stroke N Varicosities N Neurologic/Epilepsy Y Endometriosis N High Cholesterol N Headaches Y Fibromyalgia N Kidney Disease N Heart Problems N Kidney or Bladder Problems Y Thyroid Problems N GI Problems Y Eating Disorder N Anemia N Art (IVF or FET) N Psychiatric Illness N Ovarian Cancer N Diabetes N Pulmonary (TB, Asthma) N Hepatitis/Liver Disease N No Past Medical History N Eczema N Urinary Tract Infection Y Abuse/Domestic Violence N Asthma N Trauma/Violence N Depression/ depression Y Heart Disease N Pre-Eclampsia N Hypertension N Osteoporosis Y Thrombophilias N Gynecological History Statement/Question Response Date of Last Mammogram 04/24/2022 Date of LMP 10/29/2024 N Was last menstrual period normal Y STIs/STDs Y If Post Menopausal, Age at Menopause 52 Date of Last Colonoscopy 06/29/2021 Desired Control Method Abnormal Pap Y On BCP's at Conception? N HPV Vaccine N Current Control Method None Are cycles usually normal N Sexually Active? N Menses Monthly N Date of DEXA bone scan Age of first menstrual cycle 13 Date of Last Pap Smear 11/30/2024 Sexual Problems? N LMP Unknown N 04/24/2021 Obstetrics History GPAL:G 0 P 0 0 0 0 Type Value Living 0 Total 0 Past Encounters Encounter ID Performer Location Encounter Start Date Encounter Closed Date Diagnosis/Indication Diagnosis SNOMED-CT Code Diagnosis ICD10 Code Diagnosis Note [id number] Misty Matos [facility] [address] [address] 04/24/2021 09:06:25 04/24/2021 12:12:51 Gynecologic examination 09726030 Z01.419 Suggested Calcium with Vitamin D 1200-1500m g daily. Patient advised to get an annual flu shot in the fall and she could obtain at [facility] or [facility] clinic. Also to obtain TDap vaccinatio n if you have not had one in the last 10 years. Recommend yearly mammograms . Encouraged monthly self breast exams. Encourage safe sexual practices, to use condoms and limit partners if not already in a monogamous relationsh ip. Engage in daily exercise of low impact aerobic exercise 45-60 minutes 4-5 times weekly. Avoid tobacco and illicit drugs as well as using moderation with alcohol intake less than 1-2 8 oz beverages daily. This lifestyle behavior pattern will lead to less health conditions and longer life span. If BMI greater than 25 weight watchers or dietary consult advised. All questions have been answered. Patient appears to understand informatio n, but if you have any questions please call or respond to this email. Paphpv updated No issues or concerns this year. mammo ordered PCP manages colon screenings STD added to pap smear but states not routinely SA (penetrati on) since boyfriend 20yrs older than her with ED issues. [id number] Rekha Mott CNM [place] [address] [address] 04/24/2022 12:16:01 04/24/2022 13:07:04 Gynecologic examination 82385866 Z01.419 [id number] [facility] [address],[place] [address] 05/20/2021 09:17:46 05/20/2021 10:20:53 test negative 016867093 Z32.02 Low grade squamous intraepithelial lesion on cervical Papanicolaou smear 5595209939 9105 R87.612 Human perry llomavirus deoxyribonucleic acid detected, high risk on cervical specimen 649509731 R87.810 [id number] Med Abreu MD [place] [address],[place] [address] 06/06/2021 11:34:19 06/06/2021 12:35:34 Dysplasia of cervix 19758622 N87.9 This patient is a 50-year-ol d female presents for severe cervical dysplasia. We have agreed to perform the procedure under anesthesia . She understand s the risks, benefits, and alternativ es. She has completed the informed consent process and is ready to proceed. [id number] Med Abreu MD [place] [address],[place] [address] 07/11/2021 08:18:59 07/11/2021 12:23:16 Pre-surgery testing 308419479 Z01.89 Dysplasia of cervix 7339 1008 N87.9 LEEP procedure was performed. The patient tolerated well. [id number] Mde Abreu MD [place] [address],[place] [address] 07/18/2021 09:45:04 07/18/2021 10:18:30 Dysplasia of cervix 56752997 N87.9 This patient is a 50-year-ol d female who presents for follow-up on LEEP procedure. She had a LEEP procedure for severe cervical dysplasia on biopsy. Her LEEP specimens sewed mild dysplasia and clear margins. She return in 6 months for Repeat Pap. She has no complaints today. [id number] Med Abreu MD [place] [address],[place] [address] 07/28/2021 16:07:52 07/28/2021 18:03:29 Lesion of vulva 972682068 N90.89 patient is a 42-year-ol d female presents complainin g of a painful vulvar lesion. Her history sounds significan t for a Bartholin' s gland. She was examined there was no Bartholin' s gland but a ulcer at the posterior fourchette . Was about 8 mm in diameter. It was tender. It has the appearance of a herpes or perioral treated as though it is herpes. She was sent Valtrex and Silvadene cream. She is going to get STD testing. Sexually t ransmitted infectious disease 3953752 A64 [id number] Med Abreu MD [place] [address],[place] [address] 08/07/2021 14:54:50 08/08/2021 09:44:17 Thrombosed external hemorrhoids 24415109 K64.5 hemorrhoid was incised and drained. She tolerated it well. She will follow up in 5 days. [id number] Med Abreu MD [place] [address],[place] [id number] 08/13/2021 14:15:57 08/14/2021 13:47:00 External hemorrhoids [id number] K64.4 this patient is a 50-year-ol d female presents for follow-up on incision and drainage of a anal lesion. It was a hematoma and old hemorrhoid . It was examined today appears to be healing well. She claims to have another sore area on her anus in another bump. It could not Be palpated. she will be referred to general surgery for evaluation treatment of recurrent hemorrhoid s. [id number] [facility] [address],[place] [address] 09/09/2023 09:38:22 09/09/2023 10:08:26 Gynecologic examination [id number] Z01.419 Z11.51 Suggested Calcium with Vitamin D 1200-1500m g daily. Patient advised to get an annual flu shot in the fall and she could obtain at [facility] or [facility] take care clinic. Also to obtain TDap vaccinatio n if you have not had one in the last 10 years. Recommend yearly mammograms . Encouraged monthly self breast exams. Encourage safe sexual practices, to use condoms and limit partners if not already in a monogamous relationsh ip. Engage in daily exercise of low impact aerobic exercise 45-60 minutes 4-5 times weekly. Avoid tobacco and illicit drugs as well as using moderation with alcohol intake less than 1-2 8 oz beverages daily. This lifestyle behavior pattern will lead to less health conditions and longer life span. If BMI greater than 25 weight watchers or dietary consult advised. All questions have been answered. Patient appears to understand informatio n, but if you have any questions please call or respond to this email. Paphpv sent No issues or concerns this year. mammo ordered & faxed PCP manages colon screenings /routine lab work STD added to pap smear but states not routinely SA (penetrati on) since boyfriend 20yrs older than her with ED issues.Boy friend has drinking issues. Screening mammography [id number] Z12.31 [id number] LIANNE Martins [place] [address] [address] 11/30/2024 10:14:53 11/30/2024 12:52:02 Gynecologic examination [id number] Z01.419 WWEPap - done todaySTI screen - declinedMa mmogram - order givenColon cancer screening - UTDDexa - n/aRoutine labs - UTD/PCPRTC in 1 yr or sooner if needed Do monthly self breast exams.It is advised to get annual flu shot in the fall and she could obtain at local pharmacy. If you haven't received the Tdap vaccine in the last 10 years you should obtain one as well.Have mammogram yearly, bone density every 2-3 years and stay up to date on colon cancer screening. Engage in regular exercise. Avoid tobacco and illicit drugs. This lifestyle behavior pattern will lead to less health conditions and longer life span. If BMI greater than 25 dietary consult advised.Qu estions have been answered. Screening for malignant neoplasm of breast [id number] Z12.39 Postmenopa usal bleeding [id number] N95.0 recommende d pelvic u/s given possible episodes of PMB vs perimenopa usepelvic u/s ordered, discussed possibilit y of EMB pending resultsque stions answered [id number] [facility] [address] [address] 12/15/2024 10:09:37 12/15/2024 13:18:45 Postmenopausal bleeding [id number] N95.0 [id number] [facility] [address] [address] 02/16/2025 09:21:14 02/16/2025 10:13:15 Cyst of left ovary [id number] N83.202 [id number] Med Abreu MD [place] [address] [address] 03/09/2025 09:56:14 03/09/2025 11:35:53 Cyst of ovary [id number] N83.209 Postmenopa usal bleeding [id number] N95.0 54-year-ol d female with some postmenopa usal bleeding. Possibly atrophic bleeding. Her endometria l stripe is 2 mm. She has cerebral palsy. We will continue to observe her bleeding. Very unlikely that she has a endometria l cancer. Her regular periods stopped about 2 years ago. She has an ovarian cyst. We reviewed the ultrasound findings on the ovarian cyst. We agreed to follow up in 3 months on the ovarian cyst. We will touch base on the bleeding at that time. Consider further evaluation if the bleeding persists. I spent over 20 minutes on her care. We shared ultrasound images and discussed the results in detail. Health Concerns Section Related Observation LastModified by Organization Detai ls LastModified Time None Recorded Concern Status LastModified by Organization Details LastModified Time None Recorded Advance Directives Directive N: Payers Encounter Date Sequence Insurance Name Policy Number Policy Lee Covered Member ID Lee Member ID Guarantor Name 09/09/2023 1 [facility] ON OR AFTER 05/29/21 (MEDICAID REPLACEMENT - HMO) Esther Duarte [id number] Esther Duarte 11/30/2024 1 [facility] - [facility] ON OR AFTER 21 (MEDICAID REPLACEMENT - HMO) Esther Duarte [id number] Esther Duarte 12/15/2024 1 [facility] ON OR AFTER 05/29/21 (MEDICAID REPLACEMENT - HMO) Esthernayely Duarte [id number] Esther Gerald 02/16/2025 1 [facility] ON OR AFTER 05/29/21 (MEDICAID REPLACEMENT - HMO) Esther Duarte [id number] Esther Gerald 03/09/2025 1 [facility] ON OR AFTER 05/29/21 (MEDICAID REPLACEMENT - HMO) Esthernayely Duarte [id number] Esthernayely Duarte Notes Date Note Type Note Provider Name and Address Organization Details Recorded Time 09/09/2023 text/html 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 Post-MenopausalRepor whit bypatient.Menopausal Symptoms:no menopausal symptoms; normal vaginal lubrication Vaginal Bleeding:history of menopause having occurred; no history of post menopausal bleeding Urinary Symptoms:no hematuria; no incontinence; no nocturia; no urinary frequency Vulva:no genital lesion; no vulvar atrophy Vagina:normal vaginal discharge; no vaginal atrophy Breast:no breast lump; no nipple discharge; no breast pain Sexual Complaints:no sexual complaints Psychological Symptoms:no depression; no anxiety Preventive Measures:encourage regular mammograms starting age 40; encourage self breast examination; encourage regular exercise; encourage no tobacco use; needs to schedule mammogram; history of recent colonoscopy Misty Mtaos ROSA- [address], [place], [address], [facility] 09/09/2023 10:08:10 11/30/2024 text/html Annual GYNReport ed bypatient.Menstrual cycle:Perimenopausal Urinary symptoms:No hematuria; No incontinence Vulva:No genital lesion Vagina:Normal vaginal discharge Breast:No breast pain; No breast lump; No nipple discharge Sexual complaints:No sexual complaints; No pain during intercourse; Normal libido Menopausal Symptoms:No menopausal symptoms; Normal vaginal lubrication Psychological symptoms:No depression; No anxiety; No PMDD Preventive measures:Encourage self breast examination; Encourage regular exercise; Encourage no tobacco use; Encourage regular mammograms starting age 40Notes:54yo wwelast pap 08/2023 : nilm, HPV (-)h/o LSIL, HPV (+) in 2020, colpo done 2020 ROVERTO 1 went 12 months without a period from 1199-2565, then had 2 periods/episodes of vaginal bleeding in 2023 (last 10/2024) LIANNE Martins [address], [place], [address], [facility] 11/30/2024 12:15:41 03/09/2025 text/html 54-year-old fema le with some postmenopausal bleeding. Possibly atrophic bleeding. Her endometrial stripe is 2 mm. She has cerebral palsy. We will continue to observe her bleeding. Very unlikely that she has a endometrial cancer. Her regular periods stopped about 2 years ago. She has an ovarian cyst. We reviewed the ultrasound findings on the ovarian cyst. We agreed to follow up in 3 months on the ovarian cyst. We will touch base on the bleeding at that time. Consider further evaluation if the bleeding persists. I spent over 20 minutes on her care. We shared ultrasound images and discussed the results in detail. Med Abreu MD [address], [place], [address], [facility] 03/09/2025 10:58:33 OBGyn Episode No OBEpisode recorded.
== END 2025-03-14 08:30 | disposition home or self-care (01) ==
LOC: ANHIMG 08:31
PROVIDERS: PCP Family Medicine; Visit Provider Advanced Practice Midwife
DX: Z12.31 Encounter for screening mammogram for malignant neoplasm of breast (principal); N64.89 Other specified disorders of breast
CPT/HCPCS: 77063; 77067

== ENCOUNTER 2025-03-22 11:18 | Outpatient (CLI) | payer OTHER, SELFPAY ==
[2025-03-22 11:45] LABS: Basophils Percent Auto 0.4 % (0.2-1.2); Eosinophils Absolute Auto 0.4 K/mm3 (0-0.3); Eosinophils Percent Auto 4.3 % (0-4.4); Hematocrit 41.2 % (37.0-47.0); Hemoglobin 13.1 g/dL (12.0-15.0); Immature Granulocyte Absolute 0.02 K/mm3 (0.00-0.031); Immature Granulocyte Percent A 0.2 % (0-0.5); Lymphocytes Absolute Auto 1.94 K/mm3 (0.9-3.2); Lymphocytes Percent Auto 23.6 % (18.3-44.2); Mean Corpuscular HGB Conc 31.8 g/dl (32-36); Mean Corpuscular Hemoglobin 29.1 pg (26-34); Mean Corpuscular Volume 91.6 fl (80-100); Mean Platelet Volume 9.6 fl (7.4-10.4); Monocytes Absolute Auto 0.6 K/mm3 (0.1-0.6); Monocytes Percent Auto 6.9 % (2.6-8.5); Neutrophils Absolute Auto 5.3 K/mm3 (1.3-6.7); Neutrophils Percent Auto 64.6 % (45.5-73.1); Platelet Count Result 273 k/mm3 (150-375); Red Cell Distribution Width 12.6 % (11.5-14.5); White Blood Count 8.2 K/mm3 (4.5-10.0)
[2025-03-22 12:04] LABS: Alanine Aminotransferase 22 U/L (6-35); Albumin Level 4.4 g/dL (3.5-5.1); Alkaline Phosphatase 76 U/L (38-126); Anion Gap 6 mmol/L (4-12); Aspartate Amino Transferase 25 U/L (14-36); Bilirubin,Total 0.5 mg/dL (0.2-1.3); Blood Urea Nitrogen 15 mg/dL (7-17); Calcium 8.8 mg/dL (8.4-10.2); Carbon Dioxide 32 mmol/L (22-30); Chloride 101 mmol/L (98-107); Cholesterol 270 mg/dL (0-200); Estimated Glomerular Filt Rate > 60; Glucose 90 mg/dL (65-110); HDL Direct 49 mg/dL; Potassium 4.2 mmol/L (3.4-5.0); Sodium 139 mmol/L (137-145); Triglycerides 194 mg/dL (<150)
[2025-03-22 12:15] LABS: LDL Cholesterol Direct 158 mg/dL
[2025-03-22 12:53] LABS: Hemoglobin A1C 5.6 % (<5.7)
--- OUTSIDE RECORDS SUMMARY | 2025-03-22 12:54 | XMS_ITS | Data Portability ---
Author Organization [facility] Address [address] [place] [address] [place] [address] Care Team Providers Care Framer Name Role Phone FAISAL URRUTIA Primary Care Provider Assessment Encounter Date Assessment Date Assessment LastModified by Organization Details LastModified Time 09/09/2023 09/09/2023 Annual gynecological exam performed. Patient will come back in a year unless there are new symptoms. [email or web address] Not available 09/09/2023 09:47:07 11/30/2024 11/30/2024 Annual gynecological exam performed. Patient will come back in a year unless there are new symptoms. Not available 11/30/2024 10:26:22 Plan of Treatment Reminders Order Date Submit Date Provider Last Modified By Organization Details Last Modified Time Details Appointments BREAST EXAM 2024 09:15A Flor ABREU MD Not available Not available Not available FOLLOW UP 2024 08:45A Flor ABREU MD Not available Not available Not available Lab None recorded. Referral None recorded. Procedures None recorded. Surgeries None recorded. Imaging US, transvagi nal 2024 025 [email or web address] [facility], [address], [place], [address], 02/17/2025 12:14:32 US, pelvis 2024 025 [email or web address] [facility], [address], [place], [address], 12/17/2024 10:25:12 US, transvagi nal 2024 025 [email or web address] [facility], [address], [place], [address], 12/17/2024 10:25:12 US, pelvis, complete [address] [facility], [address], [place], [address], 12/11/2024 04:01:49 MAMMO, screening , digital, bilateral 2024 025 [facility], [address], [address], [place], [address], 02/13/2025 04:09:53 MAMMO, screening , bilateral [email or web address] [facility] [address] [facility], [address], [place], [address], 05/23/2024 16:16:47 Medication Orders None recorded. Patient [...] t Case: [id number] Autho ke robles Provi laura: Gabriel Small Colle cted: 09/09 1442 INTENSIVIST Order ing Locat ion: [place] Patho logy Recei karla: 09/10 1017 First Scree n: Eddie rMyra ica Rescr een: Nacha mpass ak, Sivil ay, CT Speci men: Scree katelyn Pap - Image d, Cervi x STATE MENT OF ADEQU ACY: Satis facto ry for evalu ation Trans forma tion zone compo nent prese nt FINAL DIAGN OSIS: Negat gianna for Intra epith elial Lesio n or Roberto minor (NIL) . Elect primo velasco shola d by Panda santos, Erik ay, CT on 09/14 at 7:39 PM [...] as clini rhoda duenas nted. Not Available [facility] (Lab) [address], [place], [address], 09/14/2023 20:42:48 09/09/20 23 09/09/2023 TRICH OMONA S VAGIN JUICE (RRNA ) trichomonas vaginalis ribosomal RNA (rrna) Negati ve negati ve Not Available [facility] (Lab) [address], [place], [address], 09/14/2023 20:42:49 09/09/20 23 09/09/2023 CT/GC (LANDRY) , THINP REP VIAL chlamydia trachomatis, PCR Negati ve negati ve Not Available [facility] (Lab) [address], [place], [address], 09/14/2023 20:42:49 09/09/20 23 09/09/2023 CT/GC (LANDRY) , THINP REP VIAL neisseria gonorrhoeae, PCR Negati ve negati ve Not Available [facility] (Lab) [address], [place], [address], 09/14/2023 20:42:49 11/30/19 25 11/30/2024 IMAGE GUIDE D PAP AND HPV REGAR DLESS image guided Pap, HPV regardless of Pap result SEE RESULT S BELOW CASE REPOR T: Cytol ogy Gynec ologi roselyn Repor t Case: [id number] Autho ke g Provi laura: Melani Moses, ROSA Colle cted: 11/30 1129 Order ing Locat ion: [place] Patho logy Recei karla: 12/01 0849 First Scree n: Larisa Michele , CT Rescr een: Kaitlin Tatum Speci men: Scree katelyn Pap - Image d, Cervi x STATE MENT OF ADEQU ACY: Satis facto ry for evalu ation Trans forma tion zone compo nent prese nt ----- ----- ----- ----- ----- ----- ----- ----- ----- ----- ----- ----- ----- ----- ----- ----- ----- ---- FINAL DIAGN OSIS: Negat gianna for Intra epith elial Hossein kauffman or Roberto minor (NIL) . 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 Not Available [facility] (Lab) [address], [place], [address], 12/08/2024 21:05:28 12/15/19 25 12/15/2024 US, pelvi s No observ ation record ed. [address], [place], [address], 12/22/2024 14:52:07 12/15/19 25 12/15/2024 US, pelvi s No observ ation record ed. [facility] [address], [place], [address], 12/15/2024 18:02:40 12/15/19 25 12/15/2024 US, trans vagin al No observ ation record ed. [facility] [address], [place], [address], 12/15/2024 18:02:49 02/17/20 25 02/16/2025 US, trans vagin al No observ ation record ed. [facility] [address], [place], [address], 02/16/2025 18:14:53 02/17/20 25 02/16/2025 US, trans vagin al No observ ation record ed. [email or web address] [address], [place], [address], 02/27/2025 17:58:30 03/14/20 25 03/14/2025 imagi ng/di agnos tic resul t No observ ation record ed. [address], [place], [address], 03/20/2025 19:26:16 03/15/20 25 03/14/2025 imagi ng/di agnos tic resul t No observ ation record ed. [place] [id number] [facility] [address], [place], [address], 03/20/2025 19:26:16 Result Notes None recorded. Problems Name Problem SNOMED Code Status Onset Date Resolution Date Notes Provider Name and Address Organization Details Recorded Time Hearing loss 21689912 Active 021 Payton benitez, [facility] 09:56:05 Knee pain Active 021 Payton benitez, [facility] 09:56:29 Problem Notes None recorded. Procedures Surgical History Date Name Laterality Status Provider Name and Address Organization Details Recorded Time 11/30/19 25 Date of Last Pap Smear completed Tg Colvin [facility] 03/09/2025 10:22:47 04/24/20 22 Date of Last Mammogram completed Tg Colvin [facility] 09/09/2023 09:50:38 04/09/20 22 extracorporeal shockwave lithotripsy of calculus of kidney completed Payton Rivera [facility] 04/24/2022 12:37:26 08/07/20 21 I&D completed Med Abreu MD [address], [place], [address], [facility] 08/07/2021 20:12:16 07/11/20 21 LEEP completed Med Abreu MD [address], [place], [address], [facility] 07/11/2021 12:08:36 07/11/20 21 LEEP completed Camelia Dean [facility] 07/11/2021 09:52:47 06/29/20 Date of Last Colonoscopy completed Payton Rivera [facility] 04/24/2022 12:40:38 06/29/20 21 Colonoscopy completed Paytonkenroy Rivera [facility] 04/24/2022 12:38:42 05/20/20 21 Colposcopy completed Rekha Mott CNM [address], [place], [address], [facility] 05/20/2021 10:17:26 11/29/18 93 [facility] wisdom tooth [facility] 04/24/2021 14:58:22 Imaging Results Imaging Date Name Status LastModified by Organization Details LastModified Time 12/15/2024 US, pelvis completed [email or web address] [address], [place], [address], 12/22/2024 14:52:07 12/15/2024 US, pelvis completed fátima Jama [address], [place], [address], 12/15/2024 18:02:40 12/15/2024 US, transvaginal completed fátima Vasquez e [address], [place], [address], 12/15/2024 18:02:49 02/16/2025 US, transvaginal completed fátima Maryvill e [address], [place], [address], 02/16/2025 18:14:53 02/16/2025 US, transvaginal completed [email or web address] [address], [place], [address], 02/27/2025 17:58:30 03/14/2025 imaging/diagnost ic result active [email or web address] [address], [address], 03/20/2025 19:26:16 03/14/2025 imaging/diagnost ic result active [email or web address] [place] [address] [address], [place], [address], 03/20/2025 19:26:16 Procedure Notes None recorded. Medical Equipment None Reported. Allergies Allergen ID Allergen Name Allergen Category Reaction Reaction Severity Criticality Documentation Date Start Date Code Code System Note Provider Name and Address Organization Details Recorded Time 08448 naproxen medicatio n Not available Not available Not available 04/24/2021 7258 RxNorm Payton Rivera [facility] 09:55:45 Medications Name Sig Start Date [...] Updated DateTime 09/09/2023 161.29 cm 22.8 kg/m2 18033.6 g 121 mm[Hg] 79 mm[Hg] Tg Colvin [facility] 3 09:47:57 Date Recorded Body height Body mass index (BMI) Body weight Systolic blood pressure Diastolic blood pressure Provider Name and Address Organization Details Last Updated DateTime 11/30/2024 161.29 cm 25.7 kg/m2 41645.52 g 111 mm[Hg] 73 mm[Hg] Mely Ellis [facility] 5 10:35:00 Date Recorded Body height Body mass index (BMI) Body weight Systolic blood pressure Diastolic blood pressure Provider Name and Address Organization Details Last Updated DateTime 03/09/2025 161.29 cm 25.6 kg/m2 68332.08 g 125 mm[Hg] 84 mm[Hg] Tg Vinicius [facility] 5 10:22:30 Social History Question Answer Notes LastModified by Organizat ion Details LastModified Time Tobacco Smoking Status Never Smoker Payton benitez, [facility] 04/24/2022 12:37:01 Do You Have An Advance Directive? No [email or web address] Information n ot available 04/24/2021 What Is Your Level Of Alcohol Consumption? Occasional [email or web address] Information not available 04/24/2021 How Many Years Have You Consumed Alcohol? 27 [email or web address] Information not available 04/24/2021 Are You Blind Or Do You Have Difficulty Seeing? No [email or web address] Information n ot available 04/24/2021 What Is Your Level Of Caffeine Consumption? None [email or web address] Information not available 04/24/2021 How Much Tobacco Do You Chew? None [email or web address] Information not available 04/24/2021 In The 14 Days Before Symptom Onset, Have You Had Close Contact With A Laboratory-confirm ed COVID-19 While That Case Was Ill? No [email or web address] Information n ot available 04/24/2021 In The 14 Days Before Symptom Onset, Have You Had Close Contact With A Person Who Is Under Investigation For COVID-19 While That Person Was Ill? No Information not available 04/24/2021 Have You Been To An Area Known To Be High Risk For COVID-19? No [email or web address] Information not available 11/30/2024 Are You Deaf Or Do You Have Serious Difficulty Hearing? No Information not available 04/24/2021 What Type Of Diet Are You Following? REGULAR [email or web address] Information n ot available 04/24/2021 What Is The Highest Grade Or Level Of School You Have Completed Or The Highest Degree You Have Received? [id number] [email or web address] Information not available 04/24/2021 What Is Your Occupation? Disabled [email or web address] Information not available 04/24/2021 Are There Any Guns Present In Your Home? No [email or web address] Information not available 04/24/2021 Do You Use Protection During Sex? No [email or web address] Information not available 04/24/2021 Do You Use Your Seat Belt Or Car Seat Routinely? Yes [email or web address] Information not available 04/24/2021 Do You Have Smoke And Carbon Monoxide Detectors In Your Home? Yes [email or web address] Information not available 04/24/2021 How Much Tobacco Do You Smoke? No [email or web address] Information not available 04/24/2021 Do You Feel Stressed (tense, Restless, Nervous, Or Anxious, Or Unable To Sleep At Night)? [id number] [email or web address] Information not available 04/24/2021 Do You Use Any Illicit Or Recreational Drugs? No [email or web address] Information not available 04/24/2021 Do You Use Sunscreen Routinely? No [email or web address] Information not available 04/24/2021 Has Tobacco Cessation Counseling Been Provided? No [email or web address] Information not available 04/24/2022 Have You Used IV Drugs? No [email or web address] Information not available 04/24/2021 Do You Or Have You Ever Used Any Other Forms Of Tobacco Or Nicotine? No [email or web address] Information not available 04/24/2022 Sex: Unknown Functional Status Question Answer Note LastModified by Organizat ion Details LastModified Time Do you have difficulty walking or climbing stairs? No [email or web address] Information not available 04/24/2022 Are you able to walk? YESASSIST [email or web address] Information not available 04/24/2021 Are you able to care for yourself? Yes [email or web address] Information not available 04/24/2022 Do you have difficulty dressing or bathing? No [email or web address] Information not available 04/24/2022 What is your exercise level? None [email or web address] Information not available 04/24/2021 Mental Status None [...] SNOMED-CT Code Diagnosis ICD10 Code Diagnosis Note [id number] LIANNE Mendez-[facility] [address] [address] 04/24/2021 09:06:25 04/24/2021 12:12:51 Gynecologic examination 78692951 Z01.419 Suggested Calcium with Vitamin D 1200-1500m g daily. Patient advised to get an annual flu shot in the fall and she could obtain at [facility] or [facility] clinic. Also to obtain TDap vaccinatio n [...] 20yrs older than her with ED issues. [id number] Rekha Mott [facility] [address],[place] [address] 04/24/2022 12:16:01 04/24/2022 13:07:04 Gynecologic examination 76555308 Z01.419 64847 [facility] [address],[place] [address] 05/20/2021 09:17:46 05/20/2021 10:20:53 test negative 627450609 Z32.02 Low grade squamous intraepithelial lesion on cervical Papanicolaou smear 6801354425 9105 R87.612 Human perry llomavirus deoxyribonucleic acid detected, high risk on cervical specimen 399984544 R87.810 10623 Med Abreu MD [facility] [address],[place] [address] 06/06/2021 11:34:19 06/06/2021 12:35:34 Dysplasia of cervix 12264335 N87.9 This patient is a 50-year-ol d female presents for severe cervical dysplasia. We have agreed to perform the procedure under anesthesia . She understand s the risks, benefits, and alternativ es. She has completed the informed consent process and is ready to proceed. 00628 Med Abreu MD [facility] [address],[place] [address] 07/11/2021 08:18:59 07/11/2021 12:23:16 Pre-surgery testing 476662908 Z01.89 Dysplasia of cervix 7339 1008 N87.9 LEEP procedure was performed. The patient tolerated well. 30958 Med Abreu MD [facility] [address],[place] [address] 07/18/2021 09:45:04 07/18/2021 10:18:30 Dysplasia of cervix 13278275 N87.9 This patient is a 50-year-ol d female who presents for follow-up on LEEP procedure. She had a LEEP procedure for severe cervical dysplasia on biopsy. Her LEEP specimens sewed mild dysplasia and clear margins. She return in 6 months for Repeat Pap. She has no complaints today. 74788 Med Abreu MD [facility] [address],[place] [address] 07/28/2021 16:07:52 07/28/2021 18:03:29 Lesion of vulva 555301990 N90.89 patient is a 42-year-ol d female [...] STD testing. Sexually t ransmitted infectious disease 4442135 A64 59895 Med Abreu MD [facility] [address],[place] [address] 08/07/2021 14:54:50 08/08/2021 09:44:17 Thrombosed external hemorrhoids 29880476 K64.5 hemorrhoid was incised and drained. She tolerated it well. She will follow up in 5 days. 83223 Med Abreu MD [facility] [address] [address] 08/13/2021 14:15:57 08/14/2021 13:47:00 External hemorrhoids 39451551 K64.4 this patient is a 50-year-ol d [...] for evaluation treatment of recurrent hemorrhoid s. [id number] [facility] [address] [address] 09/09/2023 09:38:22 09/09/2023 10:08:26 Gynecologic examination 14220697 Z01.419 Z11.51 Suggested Calcium with Vitamin D 1200-1500m g daily. Patient advised to get an annual flu shot in the fall and she could obtain at [facility] or [facility] clinic. Also to obtain TDap vaccinatio n [...] friend has drinking issues. Screening mammography 24 624408 Z12.31 [id number] Melani MosesLIANNE [facility] [address],[place] [address] 11/30/2024 10:14:53 11/30/2024 12:52:02 Gynecologic examination 79331031 Z01.419 WWEPap - done todaySTI screen - [...] answered. Screening for malignant neoplasm of breast 316906890 Z12.39 Postmenopa usal bleeding 49104051 N95.0 recommende d pelvic u/s given possible episodes of PMB vs perimenopa usepelvic u/s ordered, discussed possibilit y of EMB pending resultsque stions answered [id number] [facility] [address],[place] [address] 12/15/2024 10:09:37 12/15/2024 13:18:45 Postmenopausal bleeding 45521914 N95.0 [id number] Rosa M [facility] [address],[place] [address] 02/16/2025 09:21:14 02/16/2025 10:13:15 Cyst of left ovary 0123236296 6980138 N83.202 978375 Med Abreu MD [facility] [address],[place] [address] 03/09/2025 09:56:14 03/09/2025 11:35:53 Cyst of ovary 98975300 N83.209 Postmenopa usal bleeding 98926708 N95.0 54-year-ol d female with some postmenopa [...] Lee Member ID Guarantor Name 09/09/[address] [facility] ON OR AFTER 05/29/21 (MEDICAID REPLACEMENT - HMO) Esther Duarte [id number] Esther Duarte 11/30/[address] [facility] ON OR AFTER 05/29/21 (MEDICAID REPLACEMENT - HMO) Esther Duarte [id number] Esther Daurte 12/15/[address] [facility] ON OR AFTER 05/29/21 (MEDICAID REPLACEMENT - HMO) Esther Duarte [id number] Esther Duarte 02/16/[address] [facility] ON OR AFTER 05/29/21 (MEDICAID REPLACEMENT - HMO) Esther Duarte [id number] Esther Duarte 03/09/[address] [facility] ON OR AFTER 05/29/21 (MEDICAID REPLACEMENT - HMO) Esther Duarte [id number] Esther Duarte Notes Date Note Type Note Provider Name and Address Organization Details Recorded Time 09/09/2023 text/html Annual Channel Director Post-MenopausalRepor whit bypatient.Menopausal Symptoms:no menopausal symptoms; normal [...] to schedule mammogram; history of recent colonoscopy LIANNE Mendez- [address], [place], [address], [facility] 09/09/2023 10:08:10 11/30/2024 text/html Annual GYNReport [...] went 12 months without a period from 6684-9328, then had 2 periods/episodes of vaginal bleeding in 2023 (last 10/2024) LIANNE Martins [address], [place], [address], [facility] 11/30/2024 12:15:41 03/09/2025 text/html 54-year-old fema [...] detail. Med Abreu MD [address], [place], [address], [place] [facility] 03/09/2025 10:58:33 OBGyn Episode No OBEpisode recorded.
[2025-03-22 12:59] LABS: Vitamin D 25 Hydroxy 25.2 ng/mL
== END 2025-03-22 11:19 | disposition home or self-care (01) ==
LOC: ANHLAB 11:20
PROVIDERS: PCP Family Medicine; Visit Provider Family Medicine
DX: E55.9 Vitamin D deficiency, unspecified (principal); Z79.899 Other long term (current) drug therapy; E78.5 Hyperlipidemia, unspecified; G43.019 Migraine without aura, intractable, without status migrainosus; G40.909 Epilepsy, unspecified, not intractable, without status epilepticus; Z00.00 Encounter for general adult medical examination without abnormal findings; E53.8 Deficiency of other specified B group vitamins; R73.9 Hyperglycemia, unspecified
CPT/HCPCS: 36415; 80053; 80061; 82306; 82607; 83036; 84443; 85025

== ENCOUNTER 2025-04-02 09:08 | Outpatient (CLI) | payer OTHER, SELFPAY ==
--- NOTE | ~2025-04-02 | XR_ITS ---
XR knee RT min 4V Ordering provider: Alfonso Deng DO History: . M25.561 - Pain in right knee X 1991 AFTER INJURY . Comparison: None. FINDINGS: BONES: No acute fracture or dislocation. JOINT SPACES: Normal. SOFT TISSUES: Normal. IMPRESSION: No acute osseous abnormality right knee. Reviewed, dictated and finalized at location A.
== END 2025-04-02 09:09 | disposition home or self-care (01) ==
PROVIDERS: PCP Family Medicine; Visit Provider Family Medicine
DX: M25.561 Pain in right knee (principal)
CPT/HCPCS: 73564

== ENCOUNTER 2025-04-10 13:08 | Outpatient (CLI) | payer OTHER, SELFPAY ==
--- NOTE | ~2025-04-10 | MM_ITS ---
EXAMINATION: MM diagnostic andrew LT w krysta HISTORY: Left breast asymmetry TECHNIQUE: Additional 3-D tomosynthesis images of the left breast were performed and synthetic 2-D im ages were generated. CAD analysis was submitted and interpreted. COMPARISON: 03/14/2025, 01/06/2024, 04/24/2022 BREAST PARENCHYMAL COMPOSITION:Dense: The breasts are heterogeneously dense, which may obscure small masses. FINDINGS: Asymmetry in the left breast effaces with spot compression. No persistent mass lesion or di stortion. No suspicious microcalcification. IMPRESSION: No mammographic evidence for malignancy. BI-RADS Category 1: Negative Reviewed, dictated and finalized at location .
--- OUTSIDE RECORDS SUMMARY | 2025-04-10 13:28 | XMS_ITS | Data Portability ---
Author Organization [facility] Address [address] [place] [address] [place] [address] Care Team Providers Care Cabinet Installer Name Role Phone FAISAL URRUTIA Primary Care Provider Assessment Encounter Date Assessment Date Assessment LastModified by Organization Details LastModified Time 09/09/2023 09/09/2023 Annual gynecological exam performed. Patient will come back in a year unless there are new symptoms. [email or web address] Not available 09/09/2023 09:47:07 11/30/2024 11/30/2024 Annual gynecological exam performed. Patient will come back in a year unless there are new symptoms. [email or web address] Not available 11/30/2024 10:26:22 Plan of Treatment Reminders Order Date Submit Date Provider Last Modified By Organization Details Last Modified Time Details Appointments FOLLOW UP 2024 08:45A Flor ABREU MD Not available Not available Not available Lab None recorded. Referral None recorded. Procedures None recorded. Surgeries None recorded. Imaging US, transvagi nal 2024 025 [email or web address] [place] [facility] [address], [place], [address], 02/17/2025 12:14:32 US, pelvis 2024 025 [email or web address] [place], [address], [place], [address], 12/17/2024 10:25:12 US, transvagi nal 2024 025 [email or web address] [place], [place], [address], 12/17/2024 10:25:12 US, pelvis, complete [address] [facility], [address], [place], [address], 03/26/2025 17:47:31 MAMMO, screening , digital, bilateral [address], [address], [place], [address], 03/26/2025 17:21:03 MAMMO, screening , bilateral [email or web address] [place] [address] Ctr, [address], [place], [address], 05/23/2024 16:16:47 Medication Orders None recorded. 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 Not Available [facility] (Lab) [address], [place], [address], 09/14/2023 20:42:48 09/09/20 23 09/09/2023 TRICH OMONA S VAGIN JUICE (RRNA ) trichomonas vaginalis ribosomal RNA (rrna) Negati ve negati ve Not Available [facility] (Lab) [address], [place], [address], 09/14/2023 20:42:49 09/09/20 23 09/09/2023 CT/GC (LANDRY) , THINP REP VIAL chlamydia trachomatis, PCR Negati ve negati ve Not Available [facility] (Lab) [address], [place], [address], 09/14/2023 20:42:49 09/09/20 23 09/09/2023 CT/GC (LANDRY) , THINP REP VIAL neisseria gonorrhoeae, PCR Negati ve negati ve Not Available [facility] (Lab) [address], [place], [address], 09/14/2023 20:42:49 11/30/19 25 11/30/2024 IMAGE GUIDE [...] by 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 Not Available [facility] (Lab) [address], [place], [address], 12/08/2024 21:05:28 12/15/19 25 12/15/2024 US, pelvi s No observ ation record ed. [email or web address] [address], [place], [address], 12/22/2024 14:52:07 12/15/19 25 12/15/2024 US, pelvi s No observ ation record ed. [facility] [address], [place], [address], 12/15/2024 18:02:40 12/15/19 25 12/15/2024 US, trans vagin al No observ ation record ed. [facility] [address], [place], [address], 12/15/2024 18:02:49 02/17/20 25 02/16/2025 US, trans vagin al No observ ation record ed. [facility] [address], [place], [address], 02/16/2025 18:14:53 02/17/20 25 02/16/2025 US, trans vagin al No observ ation record ed. [email or web address] [address], [place], [address], 02/27/2025 17:58:30 03/14/20 25 03/14/2025 MAMMO , scree katelyn, digit al, bilat eral No observ ation record ed. [address], [place], [address], 03/26/2025 17:20:23 03/15/20 25 03/14/2025 MAMMO , scree katelyn, digit al, bilat eral No observ ation record ed. [place] [address], [place], [address], 03/26/2025 17:45:35 Result Notes None recorded. Problems Name Problem SNOMED Code Status Onset Date Resolution Date Notes Provider Name and Address Organization Details Recorded Time Hearing loss 12640668 Active 021 Payton benitez [facility] 09:56:05 Knee pain Active 021 Payton benitez [facility] 09:56:29 Problem Notes None recorded. Procedures Surgical History Date Name Laterality Status Provider Name and Address Organization Details Recorded Time 11/30/19 25 Date of Last Pap Smear completed Tg Colvin [facility] 03/09/2025 10:22:47 04/24/20 22 Date of Last Mammogram completed Tg Colvin [facility] 09/09/2023 09:50:38 04/09/20 22 extracorporeal shockwave lithotripsy of calculus of kidney completed Payton Rivera [facility] 04/24/2022 12:37:26 08/07/20 21 I&D completed Med Abreu MD [address], [place], [address], [facility] 08/07/2021 20:12:16 07/11/20 21 LEEP completed Med Abreu MD [address], [place], [address], [place] [facility] 07/11/2021 12:08:36 07/11/20 21 LEEP completed Camelia Dianne [facility] 07/11/2021 09:52:47 06/29/20 21 Date of Last Colonoscopy completed Paytno Rivera [facility] 04/24/2022 12:40:38 06/29/20 21 Colonoscopy completed Payton Rivera [facility] 04/24/2022 12:38:42 05/20/20 21 Colposcopy completed Rekha Mott CNM [address], [place], [address], [facility] 05/20/2021 10:17:26 11/29/18 93 extraction of wisdom tooth completed Payton Rivera [facility] 04/24/2021 14:58:22 Imaging Results Imaging Date Name Status LastModified by Organization Details LastModified Time 12/15/2024 US, pelvis completed [email or web address] [address], [place], [address], 12/22/2024 14:52:07 12/15/2024 US, pelvis completed fátima Jama [address], [place], [address], 12/15/2024 18:02:40 12/15/2024 US, transvaginal completed fátima adler [address], [place], [address], 12/15/2024 18:02:49 02/16/2025 US, transvaginal completed fátima Vasquez e [address], [place], [address], 02/16/2025 18:14:53 02/16/2025 US, transvaginal completed [address], [place], [address], 02/27/2025 17:58:30 03/14/2025 MAMMO, screening, digital, bilateral completed [address] [facility], [place], [address], 03/26/2025 17:20:23 03/14/2025 MAMMO, screening, digital, bilateral completed [place] [address], [place], [address], 03/26/2025 17:45:35 Procedure Notes None recorded. Medical Equipment None Reported. Allergies Allergen ID Allergen Name Allergen Category Reaction Reaction Severity Criticality Documentation Date Start Date Code Code System Note Provider Name and Address Organization Details Recorded Time naproxen medicatio n Not available Not available Not available 04/24/2021 7258 RxNorm Payton Rivera [facility] 09:55:45 Medications Name Sig Start Date [...] Updated DateTime 09/09/2023 161.29 cm 22.8 kg/m2 46703.6 g 121 mm[Hg] 79 mm[Hg] Tg Colvin [facility] 3 09:47:57 Date Recorded Body height Body mass index (BMI) Body weight Systolic blood pressure Diastolic blood pressure Provider Name and Address Organization Details Last Updated DateTime 11/30/2024 161.29 cm 25.7 kg/m2 37067.52 g 111 mm[Hg] 73 mm[Hg] Mely Ellis [facility] 5 10:35:00 Date Recorded Body height Body mass index (BMI) Body weight Systolic blood pressure Diastolic blood pressure Provider Name and Address Organization Details Last Updated DateTime 03/09/2025 161.29 cm 25.6 kg/m2 83452.08 g 125 mm[Hg] 84 mm[Hg] Tg Vinicius [facility] 5 10:22:30 Social History Question Answer Notes LastModified by Organizat ion Details LastModified Time Tobacco Smoking Status Never Smoker Payton benitez, [facility] 04/24/2022 12:37:01 Do You Have An Advance Directive? No Information n ot available 04/24/2021 How Many Years Have You Consumed Alcohol? 27 [email or web address] Information not available 04/24/2021 Are You Blind Or Do You Have Difficulty Seeing? No [email or web address] Information n ot available 04/24/2021 What Is Your Level Of Caffeine Consumption? None Information not available 04/24/2021 How Much Tobacco Do You Chew? None Information not available 04/24/2021 In The 14 Days Before Symptom Onset, Have You Had Close Contact With A Laboratory-confirm ed COVID-19 While That Case Was Ill? No [email or web address] Information n ot available 04/24/2021 In The 14 Days Before Symptom Onset, Have You Had Close Contact With A Person Who Is Under Investigation For COVID-19 While That Person Was Ill? No Information not available 04/24/2021 Have You Been To An Area Known To Be High Risk For COVID-19? No [email or web address] Information not available 11/30/2024 Are You Deaf Or Do You Have Serious Difficulty Hearing? No [email or web address] Information not available 04/24/2021 What Type Of Diet Are You Following? REGULAR [email or web address] Information n ot available 04/24/2021 What Is The Highest Grade Or Level Of School You Have Completed Or The Highest Degree You Have Received? [id number] [email or web address] Information not available 04/24/2021 Are There Any Guns Present In Your Home? No [email or web address] Information not available 04/24/2021 Do You Use Protection During Sex? No [email or web address] Information not available 04/24/2021 Do You Use Your Seat Belt Or Car Seat Routinely? Yes [email or web address] Information not available 04/24/2021 Do You Have Smoke And Carbon Monoxide Detectors In Your Home? Yes [email or web address] Information not available 04/24/2021 How Much Tobacco Do You Smoke? No [email or web address] Information not available 04/24/2021 Do You Use Sunscreen Routinely? No [email or web address] Information not available 04/24/2021 Has Tobacco Cessation Counseling Been Provided? No Information not available 04/24/2022 Have You Used IV Drugs? No [email or web address] Information not available 04/24/2021 Sex: Unknown Functional Status Question Answer Note LastModified by Organizat ion Details LastModified Time Do you use any illicit or recreational drugs? No [email or web address] Information not available 04/24/2021 Do you or have you ever used any other forms of tobacco or nicotine? No [email or web address] Information not available 04/24/2022 What is your level of alcohol consumption? Occasional [email or web address] Information not available 04/24/2021 Do you have difficulty walking or climbing stairs? No [email or web address] Information not available 04/24/2022 Are you able to walk? YESASSIST [email or web address] Information not available 04/24/2021 Are you able to care for yourself? Yes [email or web address] Information n ot available 04/24/2022 What is your occupation? disabled [email or web address] Information not available 04/24/2021 Do you have difficulty dressing or bathing? No [email or web address] Information not available 04/24/2022 What is your exercise level? None [email or web address] Information not available 04/24/2021 Mental Status Question Answer Note LastModified by Organization D etails LastModified Time Do you feel stressed (tense, restless, nervous, or anxious, or unable to sleep at night)? [id number] [email or web address] Information not available 04/24/2021 Family History Relationship Description Onset Age of this Age Resolved Age Notes LastModified by Organization Details LastModified Time Unspecified Relation Family history unknown [email or web address] Not available 2020 08:44:42 Unspecified Relation Family history unknown [email or web address] Not available 2020 08:44:42 Medical History Condition Response Allergies (Food, seasonal, environmental ) Y Other Y Drug/Latex Allergies/Reactions Y Breast Cancer N Blood Transfusion N Dermatologic Disorders N Lung Disease N Defects or Inherited Disease N Breast Problem N Gestational Diabetes N Hematologic disorders N Anesthesia Complications N History of STI Y Deep Vein Thrombosis N Polycystic ovary syndrome N Anxiety Disorder Y Autoimmune disease N Arthritis N Polyps N Infertility N Acid Reflux (GERD) Y History of abnormal pap Y Cancer N Varicosities N Stroke N Neurologic/Epilepsy Y Endometriosis N High Cholesterol N Fibromyalgia N Headaches Y Kidney Disease N Heart Problems N Thyroid Problems N Kidney or Bladder Problems Y GI Problems Y Eating Disorder N Anemia [...] SNOMED-CT Code Diagnosis ICD10 Code Diagnosis Note [id number] [facility] [address] [address] 04/24/2021 09:06:25 04/24/2021 12:12:51 Gynecologic examination 83391464 Z01.419 Suggested Calcium with Vitamin D 1200-1500m g daily. Patient advised to get an annual flu shot in the fall and she could obtain at [facility] or [facility] care clinic. Also to obtain TDap vaccinatio [...] 20yrs older than her with ED issues. [id number] Rekha Mott CNM [place] [address],[place] [address] 04/24/2022 12:16:01 04/24/2022 13:07:04 Gynecologic examination 54100019 Z01.419 [id number] Rekha Mott CNM [place] [address],[place] [address] 05/20/2021 09:17:46 05/20/2021 10:20:53 test negative 466949301 Z32.02 Low grade squamous intraepithelial lesion on cervical Papanicolaou smear 8271502365 9105 R87.612 Human perry llomavirus deoxyribonucleic acid detected, high risk on cervical specimen 340389243 R87.810 [id number] Med Abreu MD [place] [address],[place] [address] 06/06/2021 11:34:19 06/06/2021 12:35:34 Dysplasia of cervix 43656530 N87.9 This patient is a 50-year-ol d female presents for severe cervical dysplasia. We have agreed to perform the procedure under anesthesia . She understand s the risks, benefits, and alternativ es. She has completed the informed consent process and is ready to proceed. [id number] Med Abreu MD [place] [address],[place] [address] 07/11/2021 08:18:59 07/11/2021 12:23:16 Pre-surgery testing 009952706 Z01.89 Dysplasia of cervix 7339 1008 N87.9 LEEP procedure was performed. The patient tolerated well. [id number] Med Abreu MD [place] [address],[place] [address] 07/18/2021 09:45:04 07/18/2021 10:18:30 Dysplasia of cervix 26787943 N87.9 This patient is a 50-year-ol d female who presents for follow-up on LEEP procedure. She had a LEEP procedure for severe cervical dysplasia on biopsy. Her LEEP specimens sewed mild dysplasia and clear margins. She return in 6 months for Repeat Pap. She has no complaints today. [id number] Med Abreu MD [place] [address],[place] [address] 07/28/2021 16:07:52 07/28/2021 18:03:29 Lesion of vulva 052567371 N90.89 patient is a 42-year-ol d female [...] STD testing. Sexually t ransmitted infectious disease 7708095 A64 [id number] MD Wiley Saldivar [address],[place] [address] 08/07/2021 14:54:50 08/08/2021 09:44:17 Thrombosed external hemorrhoids 18952810 K64.5 hemorrhoid was incised and drained. She tolerated it well. She will follow up in 5 days. [id number] Med Abreu MD [place] [address] [address] 08/13/2021 14:15:57 08/14/2021 13:47:00 External hemorrhoids 16608731 K64.4 this patient is a 50-year-ol d [...] for evaluation treatment of recurrent hemorrhoid s. [id number] [facility] [address] [address] 09/09/2023 09:38:22 09/09/2023 10:08:26 Gynecologic examination 74014615 Z01.419 Z11.51 Suggested Calcium with Vitamin D 1200-1500m g daily. Patient advised to get an annual flu shot in the fall and she could obtain at [facility] or [facility] care clinic. Also to obtain TDap vaccinatio [...] friend has drinking issues. Screening mammography 24 314667 Z12.31 [id number] Melani MosesLIANNE [place] [address],[place] [address] 11/30/2024 10:14:53 11/30/2024 12:52:02 Gynecologic examination 81171312 Z01.419 WWEPap - done todaySTI screen - [...] answered. Screening for malignant neoplasm of breast 264942342 Z12.39 Postmenopa usal bleeding 99906657 N95.0 recommende d pelvic u/s given possible episodes of PMB vs perimenopa usepelvic u/s ordered, discussed possibilit y of EMB pending resultsque stions answered [id number] Med Abreu MD [place] [address],[place] [address] 12/15/2024 10:09:37 12/15/2024 13:18:45 Postmenopausal bleeding 18152104 N95.0 [id number] Med Abreu MD [place] [address],[place] [address] 02/16/2025 09:21:14 02/16/2025 10:13:15 Cyst of left ovary 6169723618 3078802 N83.202 [id number] Med Abreu MD [place] [address],[place] [address] 03/09/2025 09:56:14 03/09/2025 11:35:53 Cyst of ovary 30065789 N83.209 Postmenopa usal bleeding 15595886 N95.0 54-year-ol d female with some postmenopa [...] Lee Member ID Guarantor Name 09/09/2023 1 [facility] ON OR AFTER 05/29/21 (MEDICAID REPLACEMENT - HMO) Esther Duarte [id number] Esther Duarte 11/30/2024 1 [facility] ON OR AFTER 05/29/21 (MEDICAID REPLACEMENT - HMO) Esther Duarte [id number] Esther Duarte 12/15/2024 1 [facility] ON OR AFTER 05/29/21 (MEDICAID REPLACEMENT - HMO) Esther Duarte [id number] Esther Duarte 02/16/2025 1 [facility] ON OR AFTER 05/29/21 (MEDICAID REPLACEMENT - HMO) Esther Duarte [id number] Esther Duarte 03/09/2025 1 [facility] ON OR AFTER 21 (MEDICAID REPLACEMENT - HMO) Esther Duarte [id number] Esther Duarte Notes Date Note Type Note Provider Name and Address Organization Details Recorded Time 09/09/2023 text/html 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 09/09/2023 10:08:10 11/30/2024 text/html Annual GYNReport [...] went 12 months without a period from 6997-3017, then had 2 periods/episodes of vaginal bleeding in 2023 (last 10/2024) LIANNE Martins [address], [place], [address], [facility] 11/30/2024 12:15:41 03/09/2025 text/html 54-year-old femhayde le with some postmenopausal bleeding. Possibly atrophic [...] detail. Med Abreu MD [address], [place], [address], [place] [facility] 03/09/2025 10:58:33 OBGyn Episode No OBEpisode recorded.
== END 2025-04-10 13:09 | disposition home or self-care (01) ==
PROVIDERS: PCP Family Medicine; Visit Provider Obstetrics & Gynecology
DX: R92.8 Other abnormal and inconclusive findings on diagnostic imaging of breast (principal)
CPT/HCPCS: 77061; 77065; G0279

== ENCOUNTER 2025-05-07 08:00 | Outpatient (RCR) | payer OTHER, SELFPAY ==
--- NOTE | 2025-04-11 14:30 | OPREHPOC ---
Outpatient Therapy Plan of Care This is a Multidisciplinary Plan of Care that may contain components documented by all disciplines (PT, OT, and ST.) PT Problem 1 PT Problem #1 Knowledge Deficit PT Goal 1 Goal / Goal Update *independent with HEP Target Visit 8 PT Problem 2 PT Problem #2 Pain PT Goal 1 Goal / Goal Update * pt report pain at worst of 3/10 Target Visit 8 PT Problem 3 PT Problem #3 Impaired Flexibility PT Goal 1 Goal / Goal Update *increase R hamstring length to decrease pull on hip and knee R LE with supine SLR to 45' Target Visit 8 PT Problem 4 PT Problem #4 Impaired Strength PT Goal 1 Goal / Goal Update * increase strength of R hip and knee, to 4+/5 to improve stability to knee Target Visit 8 PT Problem 5 PT Problem #5 Impaired Functional Mobility PT Goal 1 Goal / Goal Update 1* 5 reps sit/stand time of 30 seconds, without use of UE 2* 2 minute walking test distance of 300' with large base quad cane, to improve community ambulation Target Visit 8
--- NOTE | 2025-04-11 14:30 | PTOPEVAL1 ---
Assessment and note entered by Susana Agudelo, PT Evaluation Information Assessment Status Evaluation ICD-10 Condition Codes (PT) Pain in right knee M25.561,Repeated falls R29.6 Onset Dec 2023 Subjective Information have had ~ 10 falls in the past 6 months-miss step on patio and fall, lose balance; sometimes need help to get up off the floor when falls; sometimes R leg does what it wants to do and I cannot help but fall; not sure if knee hurting more from the falls or gaining about 10#; use large base quad cane when out of home, not use in the house; recent xray of R knee negative activity: is independent with self care and light home tasks; home is one level but have one step from patio; Goal: less pain in knee, Reported Pain Level Pain Score Self Report Additional Pain Score Comments pain range in the past week 2-10; medial knee joint line, posterior knee crease and distal patella increase pain: bending knee decrease pain: sit, rest, rub knee Assessment PT Clinical Summary Esther has the diagnosis of R knee pain and falls. Xray of knee was negative. She reports 10 falls in the past 6 months, due to loss of balance and R leg problems. Her medical history includes cerebral palsy, chronic back pain, head injury. LE functional scale rating of 31% limitation in activity level. She uses a large base quad cane for walking. With the evaluation: pain over medial joint line with palpation; poor standing posture with hip and knee flexion and L hip elevated; weakness of R hip and knee with tightness of hamstring bilateral , 2 minute walking test distance of 225' with large base quad cane. R knee active ROM is WNL with pain at both end ranges of flexion and extension. Skilled PT services are indicated for modalities PRN for R knee pain, therapeutic exercises to increase LE strength and gait skills, with education for HEP. Monitor pain in back with activities. Plan of Care Interventions Electrical Stimulation,Hot Pack/Cold Pack,Manual Therapy,Neuro Re-education,Patient/Caregiver Education,Therapeutic Activities,Therapeutic Exercise,Ultrasound,Other Other Interventions taping PT Services Indicated Yes Treatment Frequency and 1-2 x/wk for 8 visits Duration These treatments will address the objective and functional deficits as defined above. The patient will be advanced safely and appropriately in order for the patient to progress towards his/her prior level of function. Additional exercises will be introduced and as well as a comprehensive home exercise program upon discharge, if needed, ?to ensure carryover of functional gains achieved in the clinic. This treatment plan has been reviewed and agreement upon by the patient.
--- NOTE | 2025-05-11 11:36 | OPREHPOC ---
Outpatient Therapy Plan of Care This is a Multidisciplinary Plan of Care that may contain components documented by all disciplines (PT, OT, and ST.) PT Problem 1 PT Problem #1 Knowledge Deficit PT Goal 1 Goal / Goal Update *independent with HEP 05-11-25 d/c goals not addressed pt called and canceled PT Target Visit 8 PT Problem 2 PT Problem #2 Pain PT Goal 1 Goal / Goal Update * pt report pain at worst of 3/10 05-11-25 d/c goals not addressed pt called and canceled PT Target Visit 8 PT Problem 3 PT Problem #3 Impaired Flexibility PT Goal 1 Goal / Goal Update *increase R hamstring length to decrease pull on hip and knee R LE with supine SLR to 45' 05-11-25 d/c goals not addressed pt called and canceled PT Target Visit 8 PT Problem 4 PT Problem #4 Impaired Strength PT Goal 1 Goal / Goal Update * increase strength of R hip and knee, to 4+/5 to improve stability to knee 05-11-25 d/c goals not addressed pt called and canceled PT Target Visit 8 PT Problem 5 PT Problem #5 Impaired Functional Mobility PT Goal 1 Goal / Goal Update 1* 5 reps sit/stand time of 30 seconds, without use of UE 2* 2 minute walking test distance of 300' with large base quad cane, to improve community ambulation 05-11-25 d/c goals not addressed pt called and canceled PT Target Visit 8
--- NOTE | 2025-05-11 11:36 | PTOPDC ---
Assessment and note entered by Susana Agudelo, PT Assessment Status Discharge - Pt Not Present ICD-10 Condition Codes (PT) Pain in right knee M25.561,Repeated falls R29.6 Onset Dec 2023 Subjective Information pt called and canceled her PT appointment. Assessment PT Clinical Summary Esther called and canceled her PT reevaluation appointment. And did not want to reschedule it. She has received 7 PT session for R knee pain and falls. The goals were not assessed. Discharge PT services. Plan of Care PT Services Indicated No
== END 2025-05-11 14:47 | disposition home or self-care (01) ==
LOC: ANHPT 08:00
PROVIDERS: PCP Family Medicine; Visit Provider Family Medicine
DX: M25.561 Pain in right knee (principal); R29.6 Repeated falls; G80.9 Cerebral palsy, unspecified
CPT/HCPCS: 97110; 97116; 97161; 97530

== ENCOUNTER 2025-05-25 15:19 | Emergency (ER) | payer OTHER, SELFPAY ==
[2025-05-25 15:44] VITALS: BP 121/91; PULSE 99; RESP 20; TEMP 36.4; O2SAT 99
== END 2025-05-25 17:45 | disposition left against medical advice (07) ==
PROVIDERS: PCP Family Medicine
DX: R22.42 Localized swelling, mass and lump, left lower limb (principal)
CPT/HCPCS: 99199

== ENCOUNTER 2025-06-06 06:42 | Outpatient (CLI) | payer OTHER, SELFPAY ==
--- NOTE | ~2025-06-06 | XR_ITS ---
Left ankle Technique: AP and lateral views were obtained. Clinical History: Soft tissue disorder Findings: No acute fracture or dislocation is seen. Osseous alignment is anatomic. Ankle mortise and other visualized joint spaces are preserved. Mild diffuse subcutaneous soft tissue edema present. Impression: No osseous or articular abnormality. Mild diffuse subcutaneous soft tissue edema. Reviewed, dictated and finalized at [facility]. Impression: No osseous or articular abnormality. Mild diffuse subcutaneous soft tissue edema.
--- NOTE | ~2025-06-06 | XR_ITS ---
Left Knee Technique: AP and lateral views were obtained. Clinical History: Soft tissue disorder Findings: No fracture or dislocation is seen. Osseous alignment is anatomic. Joint spaces are preserv ed without degenerative or erosive change. Soft tissues are unremarkable. No joint effusion is seen. Impression: Unremarkable left knee radiographs. Reviewed, dictated and finalized at location . Impression: Unremarkable left knee radiographs.
--- NOTE | ~2025-06-06 | XR_ITS ---
AP view of the pelvis and AP and lateral views of the left hip Clinical history: Pain Findings: No acute fracture or dislocation is seen. Osseous alignment is anatomic. Bilateral hip and SI joint spaces are preserved. Soft tissues are unremarkable. Impression: No significant abnormality is seen. Reviewed, dictated and finalized at location . Impression: No significant abnormality is seen.
== END 2025-06-06 06:43 | disposition home or self-care (01) ==
PROVIDERS: PCP Family Medicine; Visit Provider Psychiatry & Neurology Neurology
DX: M79.89 Other specified soft tissue disorders (principal); M79.605 Pain in left leg
CPT/HCPCS: 73502; 73560; 73600

== ENCOUNTER 2025-06-07 15:29 | Outpatient (CLI) | payer OTHER, SELFPAY ==
--- NOTE | ~2025-06-07 | US_ITS ---
LEFT LOWER EXTREMITY VENOUS ULTRASOUND Ordering provider: Alfonso Deng DO History: . M79.89 - Other specified soft tissue disorders . Comparison: None. FINDINGS: --COMMON FEMORAL: Patent and free of thrombus. Normal compressibility, phasic flow and augmentation. --PROXIMAL SUPERFICIAL FEMORAL: Patent and free of thrombus. Normal compressibility, phasic flow and augmentation. --DISTAL SUPERFICIAL FEMORAL: Patent and free of thrombus. Normal compressibility, phasic flow and au gmentation. --POPLITEAL: Patent and free of thrombus. Normal compressibility, phasic flow and augmentation. --POSTERIOR TIBIAL: Patent and free of thrombus. Normal compressibility, phasic flow and augmentation . IMPRESSION: Negative left lower extremity venous US. No deep vein thrombosis. Reviewed, dictated and finalized at location A.
== END 2025-06-07 15:30 | disposition home or self-care (01) ==
PROVIDERS: PCP Family Medicine; Visit Provider Family Medicine
DX: M79.89 Other specified soft tissue disorders (principal); M79.605 Pain in left leg
CPT/HCPCS: 93971

== ENCOUNTER 2025-09-27 10:51 | Outpatient (CLI) | payer OTHER, SELFPAY ==
--- NOTE | ~2025-09-27 | XR_ITS ---
EXAMINATION: XR humerus LT, 09/27/2025 11:17 CDT HISTORY: M79.602 - Pain in left arm COMPARISON: No comparisons available. Findings: No acute fracture or malalignment. No significant degenerative changes. Soft tissues unremarkable. Impression: No acute fracture or malalignment. Reviewed, dictated and finalized at location P. Impression: No acute fracture or malalignment.
--- NOTE | ~2025-09-27 | XR_ITS ---
EXAMINATION: XR shoulder LT min 2V, 09/27/2025 11:17 CDT HISTORY: Pain in left shoulder, fall x 1 week ago COMPARISON: No comparisons available. Findings: No acute fracture or malalignment. No significant degenerative changes. Soft tissues unremarkable. Impression: No acute fracture or malalignment. Reviewed, dictated and finalized at location P. Impression: No acute fracture or malalignment.
== END 2025-09-27 10:52 | disposition home or self-care (01) ==
PROVIDERS: PCP Family Medicine; Visit Provider Family Medicine
DX: M79.602 Pain in left arm (principal); M25.512 Pain in left shoulder
CPT/HCPCS: 73030; 73060

== ENCOUNTER 2025-09-29 08:21 | Outpatient (CLI) | payer OTHER, SELFPAY ==
--- NOTE | ~2025-09-29 | CT_ITS ---
EXAMINATION: CT pelvis w con DATE: 09/29/2025 09:00 INDICATION: Other specified soft tissue disorders. TECHNIQUE: Computed tomography (CT) of the pelvis was performed with 100 mL Omnipaque 350 intravenous contrast. Automated exposure control and iterative reconstruction technique were employed. The dose-length product was 290.84 mGy-cm. COMPARISON: CT abdomen and pelvis 06/07/2023 FINDINGS: There is diverticulosis of the colon without evidence of diverticulitis. The appendix is normal. There are no dilated loops of bowel. There are no pathologically enlarged lymph nodes. There is no free intraperitoneal fluid. There is mild lumbar spondylosis. There is mild osteoarthritis of the hips. IMPRESSION: 1. No acute disease identified. 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
== END 2025-09-29 08:22 | disposition home or self-care (01) ==
PROVIDERS: PCP Family Medicine; Visit Provider Family Medicine
DX: R93.89 Abnormal findings on diagnostic imaging of other specified body structures (principal); M79.89 Other specified soft tissue disorders
CPT/HCPCS: 72193; Q9967

== ENCOUNTER → 2025-11-13 10:22 | Outpatient (CLI) | payer OTHER, SELFPAY ==
--- NOTE | ~2025-11-13 | XR_ITS ---
EXAM/PROCEDURE: XR skull min 4V HISTORY: S09.90XA - Unspecified injury of head, initial encounter COMPARISON: None available. Technique: Skull series IMPRESSION: 1. No depressed skull fracture. 2. If there is concern for acute cranial or intracranial injury, consider CT examination for optimal sensitivity. 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 No depressed skull fracture. 2. If there is concern for acute cranial or intracranial injury, consider CT ex amination for optimal sensitivity.
== END ==
PROVIDERS: PCP Family Medicine; Visit Provider Family Medicine
DX: S09.90XA Unspecified injury of head, initial encounter (principal); X58.XXXA Exposure to other specified factors, initial encounter
CPT/HCPCS: 70260